=== PATIENT | male | born 2000 | race African-American/Black ===

== ENCOUNTER 2024-12-09 15:06 | Emergency (ER) | payer SELFPAY ==
--- NOTE | ~2024-12-09 | XR_ITS ---
EXAMINATION: XR FINGERS RIGHT HISTORY: trauma COMPARISON: There are no prior studies available for comparison. FINDINGS: Three views of the right index finger are submitted. Osseous mineralization is normal. 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 The remaining portion of the distal phalanx is fractured. There is overlying soft tissue injury. The joint spaces are preserved. No radiopaque foreign body is identified. 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 There is a fracture of the remaining portion of the distal phalanx. Electronically signed by: Rickey Phillips MD 12/09/2024 03:57 PM EDT
[2024-12-09 15:18] VITALS: BP 136/88; PULSE 78; RESP 18; TEMP 37; O2SAT 98; BMI 27.3
--- NOTE | 2024-12-09 15:26 | ED_ITS ---
HPI - General Adult General Chief complaint: Wound/Laceration Stated complaint: Finger lac Time Seen by Provider: 12/09/24 17:34 Source: patient Mode of arrival: ambulatory Limitations: no limitations History of Present Illness ED Provider: Libertad Beverly PA-C HPI narrative: Patient is a 24 year old assigned male at with no reported medical history presenting to the emergency department today with a right index finger injury. Patient states that he thought he was loosening a winch when he was actually tightening it and it snapped off the tip of his right index finger. Patient denies any dizziness, lightheadedness, abdominal pain, nausea, vomiting, fever, chills, blurry vision, double vision, loss of vision, chest pain, difficulty breathing, shortness of breath, back pain, night sweats, pain with urination, increased urinary frequency, increased urinary urgency, blood in his urine or stool, syncope or a near syncopal episode, bowel incontinence, bladder incontinence, or any other complaints at this time. Location: right (index finger) Relieving factors: none Exacerbating factors: none Associated symptoms: denies other symptoms Treatments prior to arrival: none Related Data Previous Rx's ?Medication ?Instructions ?Recorded amoxicillin 875 mg tablet 875 mg PO BID 5 days #10 tabs 12/09/24 Allergies Allergy/AdvReac Type Severity Reaction Status Date / Time No Known Allergies Allergy Verified 12/09/24 15:19 Review of Systems 2 Constitutional: Constitutional: Reports no additional constitutional complaints, Denies chills, Denies fever(s) and Denies night sweats Eyes: Eyes: Reports no additional eye complaints, Denies blurry vision, Denies change in vision, Denies diplopia, Denies eye discharge, Denies loss of vision and Denies eye pain ENT: Denies dizziness Cardiovascular: Cardiovascular: Reports no additional cardiovascular complaints, Denies chest pain, Denies lightheadedness, Denies Loss of Consciousness and Denies dyspnea Respiratory: Respiratory: Reports no additional respiratory complaints and Denies dyspnea Gastrointestinal: Gastrointestinal: Reports no additional gastrointestinal complaints, Denies abdominal pain, Denies melena, Denies hematochezia, Denies change in bowel habits and Denies change in stool character Genitourinary: Genitourinary: Reports no additional male genitourinary complaints, Denies hematuria, Denies oliguria, Denies difficulty urinating, Denies dysuria, Denies urinary frequency, Denies urinary hesitancy, Denies urinary incontinence and Denies urinary urgency Musculoskeletal: Musculoskeletal: Reports no additional musculoskeletal complaints, Denies numbness and Denies tingling Comments: right index finger injury Neurologic: Denies dizziness, Denies loss of vision, Denies numbness and Denies tingling Psychiatric: Psychiatric: Reports no additional psychiatric complaints Endocrine: Endocrine: Reports no additional endocrine complaints Hematologic/Lymphatic: Hematologic/Lymphatic: Reports no additional hematologic/lymphatic complaints Allergic/Immunologic: Allergic/Immunologic: Reports no additional allergic/immunologic complaints [facility] Past Medical History Attestation statement: The following information was validated with the patient. Source: old records reviewed and nursing notes reviewed Social History Social History Smoked in Last 30 Days: No Advance Directives: No Advance Directives Information Provided: No Do you have a plan to hurt others: No Plan Physical Exam ED Vital Signs: Vital Signs - 24 hr 12/09/24 15:18 12/09/24 18:13 Temperature 98.6 F 98.6 F Pulse Rate 78 78 Respiratory Rate 18 18 Blood Pressure 136/88 136/88 Pulse Oximetry 98 98 Oxygen Delivery Method Room Air Room Air BMI result Body Mass Index 27.3 Const General: cooperative, no acute distress, alert and awake Nutritional Appearance: well nourished Orientation/consciousness: patient oriented x3 Limitations: no limitations HENMT Head: Yes normal to inspection and Yes atraumatic Ears: hearing grossly normal bilaterally and external ears normal General nose exam: Normal external nose present, no nasal discharge noted and no epistaxis Face and sinus: Yes normal facial exam, No abrasion and No laceration Mouth: Normal oral and palatal mucosa present, no drooling and no muffled voice Eyes General: appearance normal, both eyes and all related structures Periorbital: periorbital findings normal Eyelids: Yes eyelids normal Conjunctivae: conjunctivae normal Pupils: Equal, round and reactive pupils present EOM: EOMs intact bilaterally Neck Neck: Yes normal visual inspection, Yes full ROM and Yes no lymphadenopathy Chest Chest palpation & inspection: normal inspection of the chest Resp Effort & Inspection: normal respiratory effort and able to speak in complete sentences GI Inspection: Yes normal to inspection Neuro General: patient oriented x3, moves all extremities and CN's II-XI intact bilaterally Cranial nerves: Yes Equal, round and reactive pupils present Cognition (Neuro): normal cognition Extrem Other: Psych Appearance: grossly normal Mental Status: mental status grossly normal Affect: normal affect Attitude: cooperative Thought process: Normal thought process present Thought content: Normal thought content present Insight: Good insight present (Psych) Course Course Course Narrative: RME, this is a rapid medical exam performed by Manjinder Newman please refer to primary provider for complete H&P- 24-year-old male who is right-hand dominant presents for evaluation of an injury to his right index finger. He reports that he got his finger caught in a wench. He has an avulsion injury to the distal finger. He was still bleeding triage, wound was redressed with sterile dressing. Plan for x-ray to evaluate for avulsion injury Procedures Orthopedic Splinting/Casting Injury #1: Side: right Upper Extremity Injury Location: finger (2nd digit) Upper Extremity Immobilizer: finger (other) Medical Decision Making Medical Decision Making MDM Narrative: Patient is a 24 year old assigned male at with no reported medical history presenting to the emergency department today after a right finger partial amputation. Patient's physical exam was as noted. Patient's right hand x-ray showed an amputation of the right index finger at the level of the midshaft of the distal phalanx with a fracture of the remaining portion of the distal phalanx. I spoke to the orthopedic team who recommended closing what can be closed after washing it out, dressing it, giving oral antibiotics, and having him follow up on an outpatient basis with the office. I explained my physical exam findings as well as all test results to the patient. I answered all questions asked by the patient. Patient's finger was thoroughly cleaned and dressed, without incident. Patient's PMS of the right index finger was present prior to and after bandaging. Patient's right index finger was also splinted given the remaining fracture. Patient's PMS was intact prior to and after splint placement. I stressed the importance of the patient taking his medication as directed (either prescribed or as the over the counter packaging recommends). I stressed the importance of the patient following up with his primary care provider and the orthopedic team. I stressed the importance of the patient returning to the emergency department immediately if his symptoms were to worsen or if he were to develop any dizziness, shortness of breath, difficulty breathing, chest pain, blurry vision, loss of vision, nausea, vomiting, abdominal pain, fever, chills, back pain, or any other complaints. Patient verbalized agreement and understanding with this treatment plan and discharge. Patient is up to date on tetanus given his current position. Differential Diagnosis Differential Diagnoses: The differential diagnosis associated with the presentation includes Finger injury Partial amputation Finger fracture Admission/Observation Consideration of admission/observation: Escalation of care including admission/observation considered Patient would have been admitted to the hospital had his work up had any findings where hospital admission was appropriate and his clinical presentation warranted hospital admission. Consult Healthcare Provider Management of the patient was discussed with: Fruit Or Nut Picker (spoke to the orthopedic team as noted in the MDM Rationale protion of this note. ) Independent Interpretation I performed an independent interpretation of an: Plain X-Ray Interpretation: My interpretation is in agreement with the radiologist's impression of this imaging study. L EXAMINATION: XR FINGERS RIGHT HISTORY: trauma COMPARISON: There are no prior studies available for comparison. FINDINGS: Three views of the right index finger are submitted. Osseous mineralization is normal. 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 The remaining portion of the distal phalanx is fractured. There is overlying soft tissue injury. The joint spaces are preserved. No radiopaque foreign body is identified. 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 There is a fracture of the remaining portion of the distal phalanx. Electronically signed by: Rickey Phillips MD 12/09/2024 03:57 PM EDT Dictated By: Rickey Phillips MD Signed By: Electronically signed by Rickey Phillips MD 12/09/24 1557 Radiology Impression Discussion of test interpretation with radiology: I have reviewed the radiologist's reading. Prescription Management I considered prescription management with: Antibiotic (patient prescribed an antibiotic for prophylaxis) Critical Care Time Critical Care Time Critical Care Time: Yes Total Critical Care Time: 34 Attestation: I spent 34 minutes of Critical Care Time with this patient. This does not include time spent on separately reported billable procedures. 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 Do NOT remove your splint / bandage. If you have any change in sensation, movement, or color of your right index or middle fingers - you may loosen the outer bandage. If you find yourself loosening the bandage to the point of seeing the white splint material underneath - STOP and proceed to your closest Emergency Department, immediately. Follow up with your primary care provider and the orthopedic team. Take your antibiotic as prescribed. Return to the emergency department immediately if your symptoms worsen or if you develop any numbness, tingling, dizziness, shortness of breath, difficulty breathing, chest pain, blurry vision, loss of vision, nausea, vomiting, abdominal pain, fever, chills, back pain, or any other complaints. Please see the information below about our Patient Portal. If you are not yet enrolled in the [facility] Patient Portal, you will receive an enrollment email invitation following your visit to any [facility] setting. You may also self-enroll in the Patient Portal by visiting our website: [email or web address] The following information is required to access the Patient Portal: - Your [facility] Medical Record Number - Your personal home email address (must match what is in your electronic medical record, Registration staff can assist with this) - Name - Date of Capabilities of the Patient Portal: - Message some providers - View upcoming appointments - Access your health summary, medical history, and visit history - View current conditions and allergies - View procedure and lab results - View your medications, including guidelines, side effects, and precautions - Complete pre-appointment questionnaires requested by your provider - Ready summary reports of your office visits and procedures To access the Patient Portal Mobile [employer], follow these directions: - Search [employer] in the [employer] Store or [employer] Store - Download the [employer] - Search for [facility] - Enter your login/password Prescriptions: New amoxicillin 875 mg tablet 875 mg PO BID 5 Days Qty: 10 0RF Referrals: [facility] [Provider Group] (Call to follow up with our orthopedic team for amputation revision.) Stand Alone Forms: Work/School Release Interventions: ED Discharge Assessment Last Done: 12/09/24 18:13 Discharge Date/Time: 12/09/24 18:13 Print Language: Argentine
[2024-12-09 18:13] VITALS: BP 136/88; PULSE 78; RESP 18; TEMP 37; O2SAT 98
--- OUTSIDE RECORDS SUMMARY | 2024-12-09 18:48 | XMS_ITS | Continuity of Care Document ---
Author Organization Sathya Pollard [facility] Address [address] [place] [address] Phone Care Team Providers Care Basket Assembler Name Role Phone Thania BILLIE Tasia Unavailable [...] AGE 12-17 OFFICE/OUTPATIENT VISIT, EST DEVELOPMENTAL TEST, IWNTERS PREV VISIT, EST, AGE 12-17 OFFICE/OUTPATIENT VISIT, [...] Copied on Encounter OFFICE/OUTPA TIENT VISIT, EST [facility], [address] [facility] [facility] [address], [place], [id number], [place] tel:[phone] [facility] stomach pain (chief complaint) Rib pain 3 Schierberl Tasia. [address] [place], [place], [id number], [place]. tel:[phone] [facility], [address] [place] [address] ng [address], [place], [id number], [place] tel:[phone] [facility] No Information 1 Alejandro Ha. [address] [place], [place], [id number]. tel:[phone] PREV VISIT, EST, AGE 18-39 [facility], [address] [facility] [facility] [address], [place], [place], [id number], [place] tel:[phone] [facility] APE. (chief complaint) Encounter for general adult medical examination without abnormal findingsBody mass index [BMI] pediatric, 85th percentile to less than 95th percentile for age 1 Sarah Osorio. [address] [place], [place], [id number], [place]. tel:[phone] [facility], [address] [place] [address] ng [address], [place], [place], [id number], [place] tel:[phone] [facility] Patient left without being seen 1 Sarah Osorio. [address] [place], [place], [id number], [place]. tel:[phone] [facility], [address] [place] [address] [address], [place], [id number], [place] tel:[phone] [facility] No Information Cesar-0 0 Viki Lara. [address] [place], [place], [id number]. tel:[phone] [facility], [address], [place], [place], [id number], [place] tel:[phone] [facility] Dermatitis, unspecified Cesar-0 0 [facility]. . Consulting Provider: Carmen Bella, [address] [place], [address]. tel:[phone] PREV VISIT, EST, AGE 18-39 [facility], [address] [place] [address] 2,[address], [place], [place], [id number], [place] tel:[phone] [facility] Well child (chief complaint) Eczema, unspecified typeEncntr for general adult medical exam w/o abnormal findings 9 Sarah Osorio. [address] [place], [place], [id number], [place]. tel:[phone] OFFICE/OUTPA TIENT VISIT, EST [facility], [address], [place], [place], [id number], [place] tel:[phone] [facility] nail problem (chief complaint) Ingrown toenail of right foot with infection 9 Yvonne Antonio. [address] [place] [address], [id number]. tel:[phone] [facility], [address], [place], [place], [id number], [place] tel:[phone] [facility] ingrown toenail (chief complaint) Patient left without being seen 9 Yvonne Alvarez. [address] [place], [place], [id number]. tel:[phone] OFFICE/OUTPA TIENT VISIT, EST [facility], [address], [id number], [place] tel:[phone] [facility] R great toenail ingrown (chief complaint) eczema flare (chief complaint) Ingrown toenail of right foot with infectionEcze ma, unspecified type 9 Viki Lara. [address] [place] [address], [id number]. tel:[phone] OFFICE/OUTPA TIENT VISIT, EST [facility], [address] [facility] [address], [place], [place], [id number], [place] tel:[phone] [facility] rash. (chief complaint) Eczema, unspecified type 9 Rosaline Welsh. [address] [place] [address], [id number], [place]. tel:[phone] PREV VISIT, EST, AGE 12-17 [facility], [address], [place], [place], [id number], [place] tel:[phone] [facility] Well Child (chief complaint) Encntr for routine child health exam w/o abnormal findings 8 No Information PREV VISIT, EST, AGE 12-17 [facility], [address] [facility] [address], [place], [place], [id number], [place] tel:[phone] [facility] Well Child (chief complaint) Encounter for routine child health examination with abnormal findingsEczem a, unspecified type 6 No Information OFFICE/OUTPA TIENT VISIT, EST [facility], [address] [facility] [address], [place], [place], [id number], [place] tel:[phone] [facility] Skin sx (chief complaint) Eczema, unspecified type 6 No Information PREV VISIT, EST, AGE 12-17 [facility], [address] [facility] [address], [place], [place], [id number], [place] tel:[phone] [facility] Well child (chief complaint) Eczema (chief complaint) Encounter for routine child health examination with abnormal findingsEczem a, unspecified eczema 5 No Information OFFICE/OUTPA TIENT VISIT, EST [facility], [address] [facility],[address], [place], [place], [id number], [place] tel:[phone] [facility] fall on l. knee,seen in ER (chief complaint) Contusion of left knee 5 No Information PREV VISIT, EST, AGE 12-17 [facility], [address] [facility] [address], [place], [place], [id number], [place] tel:[phone] [facility] Well Child (chief complaint) ROUTIN CHILD HEALTH EXAM 4 No Information OFFICE/OUTPA TIENT VISIT, EST [facility], [address] [facility] [address] [facility] [address], [place], [place], [id number], [place] tel:[phone] [facility] eczema (chief complaint) Contact dermatitis and other eczema, unspecified causeOnychomy cosis - 4 No Information OFFICE/OUTPA TIENT VISIT, EST [facility], [address] [facility],[address], [place], [place], [id number], [place] tel:[phone] [facility] fever (chief complaint) diarrhea (chief complaint) Abdominal pain 3 No Information PREV VISIT, EST, AGE 5-11 [facility], [address] [facility] [address], [place], [place], [id number], [place] tel:[phone] [facility] Well child - 11 Years (chief complaint) Routine infant or child health checkContact dermatitis and other eczema, unspecified causeRoutine infant or child health check 3 No Information OFFICE/OUTPA TIENT VISIT, EST [facility], [address] [facility],[address], [place], [place], [id number], [place] tel:[phone] [facility] skin itching (chief complaint) EczemaNeed for prophylactic vaccination and inoculation against other specified single bacterial diseaseNEED FOR PROPHYLACTIC VACCINATION WITH COMBINED DIPHTHERIA-TE TANUS-PERTUSS IS (DTP) (DTAP) VACCINE - 3 No Information FAMILY PSYTX W/PATIENT [facility], [address], [place], [place], [id number], [place] tel:[phone] [facility] Persistent adjustment disorder 2 No Information PREV VISIT, EST, AGE 5-11 [facility], [address], [place], [place], [id number], [place] tel:[phone] [facility] Well child - 10 Years (chief complaint) Routine or child health checkRoutine infant or child health check 0- 2 No Information OFFICE/OUTPA TIENT VISIT, EST [facility], [address], [place], [place], [id number], [place] tel:[phone] [facility] neck pain (chief complaint) Cervicalgia 2 No Information [facility], [address], [place], [place], [id number], [place] tel:[phone] [facility] No Information 1 No Information [facility], [address], [place], [place], [id number], [place] tel:[phone] [facility] No Information 0 No Information [facility], [address], [place], [place], [id number], [place] tel:[phone] [facility] No Information 9 Viki Lara. [address] [place] [address], [id number]. tel:[phone] [facility], [address], [place], [place], [id number], tel:[phone] [facility] No Information Dec- No Information Family History Family Member Type [...] R egistry Hepatitis B (a) CHILD administered Sourc e: New Immunization Record Flu (split) (3 yrs or older) cancelled Source: New Immunization Record Payers Payer name Insurance type Covered constitution party ID Authoriza tion(s) [address] [id number] [address] [id number] [facility] [id number] [facility] [id number] Social History Type Description Quantity Date Captured [...] back which helped a lot. Works at [employer], does a lot of heavy lifting. No recent gym/strenous exercise.ROS neg for CP, reflux, cough, fevers, recent URI, n/vnonsmokerneg fhx sudden cardiac or stomach dz Reason For Referral Reason For Referral No Information Plan Of Treatment Date Type Action Status Goal HPV (1st) due Goal Td vaccine. Due on due Goal APE. Due [...] Information. D ue on due Goal HPV (1st) due Goal Pneumococcal vaccine due Goal APE. Due on due Goal Influenza vaccine. Due on due Goal HPV (2nd) due Goal Document SOGI Information. D ue on due Goal Diabetes Screening. Due on due Goal Fluoride varnish application . Due on due Goal HPV (3rd). Due on 8 due Goal Fluoride varnish application . Due [...] due Goal HPV (1st) due Goal HPV (2nd). Due on 8 due Goal HPV (3rd). Due on 8 due Goal Pneumococcal vaccine due Goal HPV (3rd). Due on due Goal Pneumococcal vaccine due Goal HPV (2nd). Due on due Goal Influenza vaccine. Due on due Goal HPV (1st) due Goal Tdap. Due on due Goal HPV (3rd). Due on 8 due Goal Influenza vaccine. Due on due Goal Pneumococcal vaccine due Goal HPV (2nd). Due on due Goal Tdap. Due on due Goal HPV (1st) due Goal HPV (1st) due Goal Influenza vaccine. Due on due Goal HPV (3rd). Due on due Goal Tdap. Due on [...] Present Illness Encounter Date Complaint History Of [facility] Ill[facility] stomach pain CC: stomach pain Lang: [...] back which helped a lot. Works at [employer], does a lot of heavy lifting. No recent gym/strenous exercise.ROS neg for CP, reflux, cough, fevers, recent URI, n/vnonsmokerneg fhx sudden cardiac or stomach dz APE. 19yo M here for [place]ISSY w/mom and brotherLast visit w/me in [id number]) Eczema.Was recently referred to derm but no-showed appt on `06/30/19PSH: noneAllergies: NKDA/NKFAMeds: steroid creamSH: lives w/mom, dad, and brother. no smokers, no petsSchool - [employer] for general studies - was thinking about zoology but unsure. work - [employer] - online shopping, 30hrs/wk; not currently exercising [...] referred to derm but no-showed appt on `06/30/19Has been hospitalized for this beforeDaily care: regular and liberal use of emollients on a daily basis and other xerosis-reducing behaviors (e.g., taking low-heat showers, using emollient washes-Cetaphil, and moisturizers low in water-Cetaphil, Aquaphor)d/t severity of disease, could benefit from maintenance steroid dosePSH: noneAllergies: NKDA/NKFAMeds: steroid creamSH: lives w/mom, dad, and brother. no smokers, no petsschool - [employer], senior. work - [employer] exercises - 45 minutes every day. is planning on doing basketball and baseballPlans to go to [facility] - zoologistDiet: no vegetables or fruits. eats [...] counseling Age appropriate anti cipatory guidance discussed (-22 years) Related to Encntr for routine child health exam w/o abnormal findings Age appropriate diet discussed (- years) Related to Encntr for routine child health exam w/o abnormal findings Oral Health Discussed ( yea rs) Related to Encntr for routine child health exam w/o abnormal findings Age appropriate anti cipatory guidance discussed (- years) Related to Encntr for routine child health exam w/o abnormal findings Age appropriate diet discussed (- years) Related to Encntr for routine child health exam w/o abnormal findings Oral Health Discussed ( yea rs) Related to Encntr for routine child health exam w/o abnormal findings Age appropriate anti cipatory guidance discussed (11-14 years) Related to Encntr for routine child health exam w/o abnormal findings Age appropriate diet discussed (- years) Related to Encntr for routine child health exam w/o abnormal findings Oral Health Discussed (- yea rs) Related to Encntr for routine child health exam w/o abnormal findings no gym x 3 more wks, rtc if no better or worse by then Related to Contusion of left knee Age appropriate anti cipatory guidance discussed Related to routine infant/child health checkup Age approriate antic ipatory guidance discussed Related to routine /child health checkup Assessments Type Assessment Date assessment Rib pain Patient Care Teams Name Effective Dates (start - stop) Status Members No Information
--- OUTSIDE RECORDS SUMMARY | 2024-12-09 18:48 | XMS_ITS | Continuity of Care Document ---
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 Medication Details Route Status Patient Instructions Prescription Expires Prescription Number Last Dispense Date Ordering Provider Order Date Order Qty Source benzoyl peroxide 5% topical gel 1 appl(s), Topical, Daily, # 42.5 g, 0 total refill(s ), Arley khan, Pharmacy : [facility] Topica l (on the skin) Ordered 2 2021 42.5 [id number] melvin Junior [facility] ibuprofen 800 mg oral tablet ibuprofe n 800 mg oral tablet Start Date: 08/18/21 Stop Date: 12/15/21 Status: Disconti nutosin Repeat number: 1 Discont inued 12/15/20212021 No Facilit y Access ibuprofen 800 mg oral tablet TAKE 1 TABLET BY MOUTH THREE TIMES A DAY NEEDED PAIN, # 20 EA, 1 total refill(s ), Acute Complet ed 08/17/2022 1 2021 20.0 Ambulat ory Pharmac y Immunizations Combined list of available immunizations from the Department of Defense and Veterans Affairs facilities. 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 [employer] Status Comments Source hepatitis B adult vaccine 2020 zzPankaj ht Arm [id number] GlaxoSmithKli ne complet ed hepatitis B adult vaccine 09/05/21 Given Ambulat ory Pharmac y varicella virus vaccine 2020 zzRig ht Arm [id number] Merck & Company Inc complet ed varicella virus vaccine 09/05/21 Given Ambulat ory Pharmac y measles/mumps /rubella virus vaccine 2020 zzLef t Arm [id number] Merck & Company Inc complet ed measles/m umps/rube lla virus vaccine 09/05/21 Given Ambulat ory Pharmac y COVID Vaccine Pfizer 2020 zzLef t Arm [id number] PFIZER complet ed COVID Vaccine Pfizer 09/05/21 Given Ambulat ory Pharmac y measles, mumps and rubella virus vaccine 2 2020 PHAM, ALESI A [id number] Merck (MSD) complet ed measles, mumps and rubella virus vaccine DoD varicella virus vaccine 2 2020 PHAM, ALESI A [id number] 21 Merck (MSD) complet ed varicella virus vaccine DoD Hepatitis B vaccine (recombinant) , CpG adjuvanted 2 2020 PHAM ALESI A [id number] [facility] VU [employer] (SKB) complet ed Hepatitis B vaccine (recombin ant), CpG adjuvante d DoD SARS-COV-2 (COVID-19) vaccine, mRNA, spike protein, LNP, preservative free, 30 mcg/0.3mL dose 2 2020 ANKIT ALESI A [id number] Pfizer, Inc (PFR) complet ed SARS-COV- 2 (COVID-19 ) vaccine, mRNA, spike protein, LNP, preservat benson free, 30 mcg/0.3mL dose DoD meningococcal A,C,Y,W-135 (MCV4P) 2020 Tu Arm [id number] sanofi pasteur complet ed meningoco ccal A,C,Y,W-1 35 (MCV4P) 08/07/21 Given Ambulat ory Pharmac y tetanus, diphtheria, acellular pertu is 2020 zzLef t Arm [id number] 115 FlixlabKli ne complet ed tetanus, diphtheri a, acellular pertussis 08/07/21 Given Ambulat ory Pharmac y adenovirus vaccine, live 2020 [id number] 143 Unknown complet ed adenoviru s vaccine, live 08/07/21 Given Ambulat ory Pharmac y tuberculin purified protein derivative 2020 zzLef t Arm [id number] sanofi pasteur complet ed tuberculi n purified protein derivativ e 08/07/21 Given Ambulat ory Pharmac y influenza, injectable, quadrivalent- p[facility] [id number] 150 Seqirus complet ed influenza , injectabl e, quadrival ent-pf 08/07/21 Given Ambulat ory Pharmac y COVID Vaccine Pfizer 2020 zzLef t Arm [id number] PFIZER complet ed COVID Vaccine Pfizer 08/07/21 Given Ambulat ory Pharmac y hepatitis B adult vaccine 2020 zzRig ht Arm [id number] 43 GlaxoSmithKli ne complet ed hepatitis B adult vaccine 08/07/21 Given Ambulat ory Pharmac y varicella virus vaccine 2020 zzRig ht Arm [id number] 21 Merck & Company Inc complet ed varicella virus vaccine 08/07/21 Given Ambulat ory Pharmac y measles/mumps /rubella virus vaccine 2020 zzLef t Arm [id number] Merck & Company Inc complet ed measles/m umps/rube lla virus vaccine 08/07/21 Given Ambulat ory Pharmac y [facility], [id number] complet ed polioviru s vaccine, inactivat ed 08/07/21 Given Ambulat ory Pharmac y measles, mumps and rubella virus vaccine 1 2020 HUEY HARRISON [id number] Merck (MSD) complet ed measles, mumps and rubella virus vaccine DoD poliovirus vaccine, inactivated 1 2020 HUEY HARRISON [id number] Moderna [employer] (MOD) complet ed polioviru s vaccine, inactivat ed DoD varicella virus vaccine 1 2020 HUEY HARRISON [id number] 21 Merck (MSD) complet ed varicella virus vaccine DoD tuberculin skin test; purified protein derivative solution, intradermal 1 2020 HUEY HARRISON [id number] 96 Sanofi Pasteur (PMC) complet ed tuberculi n skin test; purified protein derivativ e solution, intraderm al DoD meningococcal polysaccharid e (groups A, C, Y and W-135) diphtheria toxoid conjugate vaccine (MCV4P) 1 2020 HUEY HARRISON [id number] Sanofi Pasteur (PMC) complet ed meningoco ccal polysacch aride (groups A, C, Y and W-135) diphtheri a toxoid conjugate vaccine (MCV4P) DoD tetanus toxoid, reduced diphtheria toxoid, and acellular pertu is vaccine, adsorbed 1 2020 HUEY HARRISON [id number] [facility] (SK) complet ed tetanus toxoid, reduced diphtheri a toxoid, and acellular pertussis vaccine, adsorbed DoD Adenovirus, type 4 and type 7, live, oral 1 2020 HUEY HARRISON [id number] 143 Unknown (UNK) complet ed Adenoviru s, type 4 and type 7, live, oral [facility] Influenza, injectable, quadrivalent, preservative free 1 2020 HUEY HARRISON [id number] 150 Seqirus (SEQ) complet ed Influenza , injectabl e, quadrival ent, preservat benson free [facility] Hepatitis B vaccine (recombinant) , CpG adjuvanted 1 2020 HUEY HARRISON [id number] [facility] (BIANCA) complet ed Hepatitis B vaccine (recombin ant), CpG adjuvante d [facility] SARS-COV-2 (COVID-19) vaccine, mRNA, spike protein, LNP, preservative free, 30 mcg/0.3mL dose 1 2020 HUEY HARRISON [id number] Pfizer, Inc (PFR) complet ed SARS-COV- 2 (COVID-19 ) vaccine, mRNA, spike protein, LNP, preservat benson free, 30 mcg/0.3mL dose [facility] Vital Signs Combined list of inpatient and outpatient Vital Signs from Department of Defense and Veterans Affairs, ranging from 12 months to all on record, depending upon the facility. Vital Sign Value Date Comments Source BP Site Left arm [facility] Temperature Temporal Artery 36.5 Marily 01/30/2022 13:15[facility] Systolic Blood Pressure 126 mm[Hg] 01/31/20 22 13:[facility] Diastolic Blood Pressure 75 mm[Hg] 022 13:15[facility] Peripheral Pulse Rate 98 bpm 01/30/2022 13:15[facility] Blood Pressure Manual Automatic 01/30/2022 13:15[facility] Mean Arterial Pressure, Calc 92 mm[Hg] 01/30/2022 [facility] Respiratory Rate 14 br/min 01/30/2022 13:[facility] Peripheral Pulse Rate 74 bpm 12/15/2021 15:01[facility] Systolic Blood Pressure 109 mm[Hg] 12/16/19 22 15:01[facility] Diastolic Blood Pressure 54 mm[Hg] 022 15:01[facility] Respiratory Rate 16 br/min 12/15/2021 15:01[facility] Mean Arterial Pressure, Calc 72 mm[Hg] 12/15/2021 15:01:[address] [place] [address] Temperature Temporal Artery 36.5 Marily 12/15/2021 15:01[facility] Blood Pressure Manual Automatic 12/15/2021 15:01:[address] [place] [address] Encounters Combined list of: 1) Encounters from Department of Veterans Affairs facilities going backup to the last 18 months, not all VA inpatient encounters are included; 2) Encounters from the Department of Defense facilities going backup to 280 months. Location Location Details Encounter Type Encounter Number Reason For Visit Attending Provider ADM Date DC Date Status Disposition Source [facility] OUTPAT[facility] [id number] DON DONISophia 08/03 Released w/o Limitations [facility] Fitz avina[facility] miranda([facility]) OUTPATIENT [id number] KHLOE ANAYA 08/07 Released w/o Limitations [facility] Fitz avina([facility] D Optomet [facility]) [facility] OUTPATIENT [id number] FIRST VISIT FOR IMMUNIZ ATISIAH WEST 08/07 Released w/o Limitations [facility] Fitz avina([facility] ) [facility]) OUTPATIENT [id number] SECOND VISIT FOR IMMUNIZ MIGUELINA SORIANO 09/05 Released w/o Limitations [facility] Fitz avina([facility] [employer] [facility] ) Procedures Combined list of: 1) Procedures from Department of [facility] Affairs facilities going back up to thelast 18 months, not all VA non-surgical procedures are included; 2) All procedures from the Department of Defense facilities. Procedure Procedure Type Code Date Perfomer Comments Sourc e No data available for this section Ambulato ry Pharmacy IMMUNIZATION ADM,INTRAMUSCULAR INJ,SEVERE AC RESPIRATORY SYNDROME CORONAVIR 2 (SARSCOV-2) (CORONAVIR DIS [COVID-19]) VACC,MRNALNP,SPIKE PROT,PRESRV FREE,30 MCG/0.3ML DOS,DILUENT RECONSTITUT;2ND DOSE 2020 [facility] COLLECTION OF VENOUS BLOOD BY VENIPUNCTURE 2020 [facility] OPHTHALMOLOGICAL SERVICES: MEDICAL EXAMINATION AND EVALUATION WITH INITIATION OF DIAGNOSTIC AND TREATMENT PROGRAM; INTERMEDIATE, NEW PATIENT 2020 [facility] PURE TONE AUDIOMETRY (THRESHOLD), AUTOMATED; AIR ONLY 2020 [facility] Patient education, not otherwise cla ified, non-physician provider, group, per se ion DIONNE OCHOA Threshold Audiogram (Pure Tone) Automated Threshold Audiogram (Pure Tone) Automated 0208T DIONNE OCHOA [facility] Spectacles Services Fitting Monofocal Except For Aphakia Spectacles Services Fitting Monofocal Except For Aphakia [id number] BETSY RAGSDALE [facility] Ophthalmological New Patient Start Intermediate Level Care Ophthalmological New Patient Start Intermediate Level Care [id number] BETSY RAGSDALE [facility] Vaccines Viral Measles, Mumps and Rubella, Live Vaccines Viral Measles, Mumps and Rubella, Live 85462 HUEY HARRISON MMR; Series #: 1; 0.5 mL; SC; Left Arm; Mfg: Merck; Lot: [id number]; VIS given (Artem: 05/05/2021). [facility] Vaccines Viral Polio, Inactivated Vaccines Viral Polio, Inactivated 46299 HUEY HARRISON IPV; Series #: 1; 0.5 mL; IM; Right Arm; Mfg: Tetherball.; Lot: [id number]; VIS given (Artem: 05/05/21; 12/30/19 - Multiple). [facility] Vaccines Viral Varicella (Active) Vaccines Viral Varicella (Active) 96572 HUEY HARRISON Varicella; Series #: 1; 0.5 mL; SC; Right Arm; Mfg: Merck; Lot: [id number]; VIS given (Artem: 05/05/2021). [facility] Skin Test Anergy Tuberculin Intradermal Skin Test Anergy Tuberculin Intradermal 12012 HUEY HARRISON IPPD; Series #: 1; 0.1 mL; ID; Left Arm; Mfg: Sanofi Pasteur; Lot: [id number]; VIS given. [facility] Meningococcal Polysaccharide Diphtheria Toxoid Conjugate Vaccine Meningococcal Polysaccharide Diphtheria Toxoid Conjugate Vaccine 19387 HUEY HARRISON Meningococcal MCV4P (Menactra); Series #: 1; 0.5 mL; IM; Right Arm; Mfg: Sanofi Pasteur; Lot: [id number]; VIS given (Artem: 05/05/2021). [facility] Tdap Vaccine Tdap Vaccine 33833 HUEY HARRISON Tdap; Series #: 1; 0.5 mL; IM; Left Arm; Mfg: EximSoft-Trianz; Lot: [id number]; VIS given (Artem: 05/05/2021). [facility] Vaccines Vaccines 06558 HUEY HARRISON Adenovirus Type 4 and 7; Series #: 1; 2 tablets; PO; Oral; Mfg: Unknown; Lot: [id number]; VIS given (Ratem: 10/07/2019). [facility] Influenza Split Virus Vaccine IM Preserv Free 0.5mL Dosage Quadrivalent Influenza Split Virus Vaccine IM Preserv Free 0.5mL Dosage Quadrivalent 76198 HUEY HARRISON Influenza, Inj., quad., preservative free; Series #: 1; 0.5 mL; IM; Left Arm; Mfg: Seqirus; Lot: [id number]; VIS given (Artem: 05/05/2021). [facility] Hepatitis B Vaccine (Active) Adult Dosage 2 Dose Schedule HUEY HARRISON Hep B- CpG (Heplisav-B); Series #: 1; 0.5 mL; IM; Right Arm; Mfg: EximSoft-Trianz; Lot: [id number]; VIS given (Artem: 05/14/2019). [facility] Vaccine SARS-CoV-2 mRNA-LNP Hugo Protein Preservative Free 30mcg/0.3mL Diluent Reconstituted IM Vaccine SARS-CoV-2 mRNA-LNP Hugo Protein Preservative Free 30mcg/0.3mL [place] [address] HUEY HARRISON COVID-19, 30 mcg/0.3 mL dose (Pfizer 12+ years); Series #: 1; 0.3 mL; IM; Left Arm; [facility]: ColorPlaza; Lot: [id number]; VIS given (Artem: 05/22/2021). [facility] Immunization Administration By Injection, One Vaccine Immunization Administration By Injection, One Vaccine 45522 HUEY HARRISON Immunization Administration By Injection, Each Additional Vaccine Immunization Administration By Injection, Each Additional Vaccine 25793 HUEY HARRISON Immunization Admin By Intranasal / Oral Route One Vaccine Immunization Admin By Intranasal / Oral Route One Vaccine 92311 HUEY HARRISON Vacc SARS-CoV-2 mRNA-LNP Hugo Protein Preservative Free 30mcg/0.3mL Diluent Reconstituted IM First Dose Vacc SARS-CoV-2 mRNA-LNP Hugo Protein Preservative Free 30mcg/0.3mL Diluent Reconstituted IM First Dose 0001A HUEY HARRISON Physician Supervised Injection Intramuscular Physician Supervised Injection Intramuscular 62667 HUEY HARRISON Venipuncture Venipuncture 83495 HUEY HARRISON [facility] Vaccines Viral Measles, Mumps and Rubella, Live Vaccines Viral Measles, Mumps and Rubella, Live 39761 PHAM, ALESI A MMR; Series #: 2; 0.5 mL; SC; Left Arm; [facility]: Cubiez; Lot: [id number]; VIS given (Artem: 05/05/2021). [facility] Vaccines Viral Varicella (Active) Vaccines Viral Varicella (Active) 79382 PHAM, ALESI A Varicella; Series #: 2; 0.5 mL; SC; Right Arm; [facility]: Cubiez; Lot: [id number]; VIS given (Artem: 05/05/2021). [facility] Hepatitis B Vaccine (Active) Adult Dosage 2 Dose Schedule PHAM, ALESI A Hep B- CpG (Heplisav-B); Series #: 2; 0.5 mL; IM; Right Arm; [facility]: EximSoft-Trianz; Lot: [id number]; VIS given (Artem: 05/14/2019). [facility] Vaccine SARS-CoV-2 mRNA-LNP Hugo Protein Preservative Free 30mcg/0.3mL Diluent Reconstituted IM Vaccine SARS-CoV-2 mRNA-LNP Hugo Protein Preservative Free 30mcg/0.3mL [place] [address] CATHY PHAM COVID-19, 30 mcg/0.3 mL dose (Pfizer 12+ years); Series #: 2; 0.3 mL; IM; Left Arm; Mfg: CloudSwitch Inc; Lot: [id number]; VIS given (Artem: 05/22/2021). [facility] Vacc SARS-CoV-2 mRNA-LNP Hugo Protein Preservative Free 30mcg/0.3mL Diluent Reconstituted IM Second Dose Vacc SARS-CoV-2 mRNA-LNP Hugo Protein Preservative Free 30mcg/0.3mL Diluent Reconstituted IM Second Dose 0002A CATHY PHAM A [facility] Social History Combined list of available smoking, tobacco, and other social history from Department of Defense and Veterans Affairs facilities. Social History Type Response Date Comment [facility] e Sex Representation Male 12/07/2021 Unknow n Organization Tobacco Never-cigarette user Cigarette use:. Never-other tobacco user (not cigarettes) Other Tobacco use:. Ambulatory Pharmacy Sexual Orientation Ambula tory Pharmacy Gender identity Ambulator y Pharmacy This section is an empty social history section. [facility] Assessment and Plan Combined list of future care activities from Department of Defense and Veterans Affairs facilities (e.g., assessment and plan notes, appointments, orders, and referrals). Additional future care activities may be listed in the Plan of Care section. 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 Cleared to separate.? ? ? Recent labs reviewed with patient. Abnormal findings and recommendations reviewed. ? Follow up with PCM as needed. ? Service specific forms completed as appropriate.? ? COUNSELING: The patient was counseled regarding the benefits of age appropriate screening exams and immunizations. They were also counseled on the importance of a healthy lifestyle including healthy diet, adequate exercise and adequate sleep.? 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 ?Use electric clippers (Not electric razor). Must be uniform and neatly trimmed to a length of 1/8 (NTE???inch total length of curled hair.) ?Frequently- daily. ?No styling is permitted. If there is actual danger of exposure to a toxic environment, SM can be required to clean- shave the bradshaw (see 9.b (2), C ?(2)). Re-eval NLT every 5 years. ? SM counseled in use of skin cleanser as it relates to decreasing skin inflammation from buildup of naturally occurring oils. ?SM advised profile is temporary and will need to be renewed in 3 months. ? Ordered: benzoyl peroxide topical, 1 appl(s), Topical, Daily, # 42.5 g, 0 total refill(s), Maintenance, 1 appl(s) Topical Daily, Pharmacy: [facility] [Not filled] ? 12/09/2024 [facility] Functional Status Combined list of recent functional and cognitive assessments recorded at Department of Defense and Veterans Affairs (VA).VA Functional [place] Measurement (FIM) Scale: 1 = Total Assistance (Subject = 0% +), 2 = Maximal Assistance (Subject = 25% +), 3 = Moderate Assistance (Subject = 50% +), 4 = Minimal Assistance (Subject = 75% +), 5 = Supervision, 6 = Modified [place] (Device), 7 = Complete [place] (Timely, Safely). Assessment Date/Time Source Assessment Type Assessment Skill Assessment Score Assessment Details No data available for this section
== END 2024-12-09 18:13 | disposition home or self-care (01) ==
PROVIDERS: Emergency Provider Emergency Medicine Emergency Medical Services
DX: S68.120A Partial traumatic metacarpophalangeal amputation of right index finger, initial encounter (principal); M79.644 Pain in right finger(s); Y28.9XXA Contact with unspecified sharp object, undetermined intent, initial encounter; Y93.89 Activity, other specified; Y92.89 Other specified places as the place of occurrence of the external cause; Y99.8 Other external cause status
CPT/HCPCS: 29130; 73140; 99284

== ENCOUNTER → 2024-12-09 15:26 | Outpatient (BNV) | payer SELFPAY | PROVIDERS: Visit Provider Radiology Diagnostic Radiology | DX: S62.630A Displaced fracture of distal phalanx of right index finger, initial encounter for closed fracture (principal) | CPT/HCPCS: 73140 ==

== ENCOUNTER 2024-12-11 08:24 | Outpatient (REF) | payer SELFPAY ==
--- NOTE | ~2024-12-11 | XR_ITS ---
EXAMINATION: XR HAND 3 OR MORE VIEWS RIGHT HISTORY: M79.641 - Pain in right hand COMPARISON: Comparison is made with the prior examination dated 12/09/2024. FINDINGS: Three views of the right hand are submitted. Osseous mineralization is normal. Again seen is amputation of the distal portion of the distal phalanx of the index finger. A small osseous fragment is seen in the volar soft tissues. The joint spaces are preserved. The soft tissues are unremarkable. XR/XR hand RT min 3V IMPRESSION: Amputation of the distal portion of the distal phalanx of the index finger. Small osseous fragment in the volar soft tissues. Electronically signed by: Rickey Phillips MD 12/11/2024 01:00 PM EDT
--- OUTSIDE RECORDS SUMMARY | 2024-12-11 08:37 | XMS_ITS | Continuity of Care Document ---
Author Name [facility] Organization [facility] Care Team Providers Care Zoning Administrator Name Role Phone [facility] Unavailable Unavailable Medications Combined list of outpatient [...] total refill(s ), Arley khan, Pharmacy : [facility] Topica l (on the skin) Ordered 2 2021 42.5 1511C-R melvin [facility] ibuprofen 800 mg oral tablet ibuprofe n [...] Site Reaction Lot Number CVX Code Drug Brand Manager Status Comments Source hepatitis B adult vaccine 2020 zzPankaj ht Arm [id number] GlaxoSmithKli ne complet ed hepatitis B adult vaccine 09/05/21 Given Ambulat ory Pharmac y varicella virus vaccine 2020 zzRig ht Arm [id number] Merck & Company Inc complet ed varicella virus vaccine 09/05/21 Given Ambulat ory Pharmac y measles/mumps /rubella virus vaccine 2020 zzLef t Arm [id number] 03 Merck & Company Inc complet ed measles/m umps/rube lla virus vaccine 09/05/21 Given Ambulat ory Pharmac y COVID Vaccine Pfizer 2020 zzLef t Arm [id number] PFIZER complet ed COVID Vaccine Pfizer 09/05/21 Given Ambulat ory Pharmac y meningococcal A,C,Y,W-135 (MCV4P) 2020 zzRig ht Arm [id number] sanofi pasteur complet ed meningoco ccal A,C,Y,W-1 35 (MCV4P) 08/07/21 Given Ambulat ory Pharmac y tetanus, diphtheria, acellular pertu is 2020 zzLef t Arm [id number] GlaxoSmithKli ne complet ed tetanus, diphtheri a, acellular pertussis 08/07/21 Given Ambulat ory Pharmac y adenovirus vaccine, live 2020 [id number] Unknown complet ed adenoviru s vaccine, live 08/07/21 Given Ambulat ory Pharmac y tuberculin purified protein derivative 2020 zzLef t Arm [id number] 96 sanofi pasteur complet ed tuberculi n purified protein derivativ e 08/07/21 Given Ambulat ory Pharmac y influenza, injectable, quadrivalent- pf 2020 zzLef t Arm [id number] 150 Seqirus complet ed influenza , injectabl e, quadrival ent-pf 08/07/21 Given Ambulat ory Pharmac y COVID Vaccine Pfizer 2020 zzLef t Arm [id number] PFIZER complet ed COVID Vaccine Pfizer 08/07/21 Given Ambulat ory Pharmac y hepatitis B adult vaccine 2020 zzRig ht Arm [id number] 43 GlaxoSmithKli ne complet ed hepatitis B adult vaccine 08/07/21 Given Ambulat ory Pharmac y varicella virus vaccine 2020 zzRig ht Arm [id number] 21 Merck & Company Inc complet ed varicella virus vaccine 08/07/21 Given Ambulat ory Pharmac y measles/mumps /rubella virus vaccine 2020 zzLef t Arm [id number] Merck & Company Inc complet ed measles/m umps/rube lla virus vaccine 08/07/21 Given Ambulat ory Pharmac y poliovirus vaccine, inactivated 2020 zzRig ht Arm [id number] complet ed polioviru s vaccine, inactivat ed 08/07/21 Given Ambulat ory Pharmac y Vital Signs Combined list of inpatient and outpatient Vital Signs from Department of Defense and Veterans Affairs, ranging from 12 months to all on record, depending upon the facility. Vital Sign Value Date Comments Source BP Site Left arm 01/30/2022 13:15:[address] [place] [address] Temperature Temporal Artery 36.5 Marily 01/30/2022 13:15:[address] [place] [address] Systolic Blood Pressure 126 mm[Hg] 01/31/20 13:15:[address] [place] [address] Diastolic Blood Pressure 75 mm[Hg] 022 13:15:[address] [place] [address] Peripheral Pulse Rate 98 bpm 01/30/2022 13:15:[address] [place] [address] Blood Pressure Manual Automatic 01/30/2022 13:15:[address] [place] [address] Mean Arterial Pressure, Calc 92 mm[Hg] 01/30/2022 13:15:[address] [place] [address] Respiratory Rate 14 br/min 01/30/2022 13:15:[address] [place] [address] Peripheral Pulse Rate 74 bpm 12/15/2021 15:01:[address] [place] [address] Systolic Blood Pressure 109 mm[Hg] 12/16/19 22 15:01:[address] [place] [address] Diastolic Blood Pressure 54 mm[Hg] 022 15:01:[address] [place] [address] Respiratory Rate 16 br/min 12/15/2021 15:01:[address] [place] [address] Mean Arterial Pressure, Calc 72 mm[Hg] 12/15/2021 15:01:[address] [place] [address] Temperature Temporal Artery 36.5 Marily 12/15/2021 15:01:[address] [place] [address] Blood Pressure Manual Automatic 12/15/2021 15:01:[address] [place] [address] [facility] Procedures Combined list of: 1) Procedures from Department of Veterans Affairs facilities going back up to thelast 18 months, not all VA non-surgical procedures are included; 2) All procedures from the Department of Defense facilities. Procedure Procedure Type Code Date Perfomer Comments Yang paiz No data available for this section Ambulatory P harmacy Social History Combined list of available smoking, tobacco, and other social history from Department of Defense and Veterans Affairs facilities. Social History Type Response Date Comment Sourc e Sex Representation Male 12/07/2021 Unknow n Organization Tobacco Never-cigarette user Cigarette use:. Never-other tobacco user (not cigarettes) Other Tobacco use:. Ambulatory Pharmacy Sexual Orientation Ambula tory Pharmacy Gender identity Ambulator y Pharmacy Assessment and Plan Combined list of future care activities from Department of Defense and Veterans [facility] facilities (e.g., assessment and plan notes, appointments, orders, and referrals). Additional future care activities may be listed in the Plan of Care section. 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 ?Use electric clippers [...] refill(s), Maintenance, 1 appl(s) Topical Daily, Pharmacy: [facility] [Not filled] ? 12/11/2024 151-Yogesh [facility] Functional Status Combined list of recent functional and cognitive assessments recorded at Department of Defense and Veterans Affairs (VA).VA Functional [place] Measurement (FIM) Scale: 1 = Total Assistance (Subject = 0% +), 2 = Maximal Assistance (Subject = 25% +), 3 = Moderate Assistance (Subject = 50% +), 4 = Minimal Assistance (Subject = 75% +), 5 = Supervision, 6 = Modified [place] (Device), 7 = Complete [place] (Timely, Safely). Assessment Date/Time Source Assessment Type Assessment Skill Assessment Score Assessment Details No data available for this section
== END 2024-12-11 08:25 | disposition home or self-care (01) ==
LOC: HO.HOSX 08:24
DX: S68.110A Complete traumatic metacarpophalangeal amputation of right index finger, initial encounter (principal); M79.641 Pain in right hand
CPT/HCPCS: 73130; 99202

== ENCOUNTER 2024-12-11 10:24 | Outpatient (AMB) | payer SELFPAY ==
[2024-12-11 10:27] VITALS: BMI 27.3
--- NOTE | 2024-12-11 10:27 | A.OFFVIS_ITS ---
Vital Signs 12/11/24 10:27 Height 5 ft 10 in Weight 190 lb BMI 27.3 Intake Visit Reasons: FC - RT IF distal phalanx amp/FX DOI 12/09/24 Intake Note: Pt presents to the office today for a fracture care visit for a RT IF distal phalanx amp/FX DOI 12/09/24. Pt states on 12/09/24 he got his finger stuck in a wench at work and as he pulled back it took the tip of his index finger off. Pt states he has minimal pain. Pt states he has had the bandage on since being seen at the ED on 12/09/24. Pt denies any previous injuries or surgeries to his right hand. Allergies No Known Allergies Allergy (Verified 12/11/24 10:27) HPI HPI FC - RT IF distal phalanx amp/FX DOI 12/09/24: Details: Pt presents to the office today for a fracture care visit for a RT IF distal phalanx amp/FX DOI 12/09/24. Pt states on 12/09/24 he got his finger stuck in a wench at work and as he pulled back it took the tip of his index finger off. Pt states he has minimal pain. Pt states he has had the bandage on since being seen at the ED on 12/09/24. Pt denies any previous injuries or surgeries to his right hand. Review of Systems Const All systems reviewed & are unremarkable except as noted in HPI and below Physical Exam Vital Signs: BMI result Body Mass Index 27.3 Extrem Other: Patient is alert, oriented, and in no acute distress. Neuro: Normal sensation of the tips of all other digits of the right hand at this time Vascular: Cap refill brisk Patient is able to make a closed fist and extend the 2nd through 5th digits of the right hand without difficulty Skin: Traumatic amputation just distal to the DIP joint of the right index finger No active bleeding at this time No drainage or other evidence of infection General: No ecchymosis, erythema, or evidence of infection. Psych: Appears grossly normal Affect normal Attitude cooperative Results Reviewed Results Reviewed: X-rays obtained in the office today and independently reviewed by me, Ed Malone PA-C, demonstrate traumatic amputation of the distal aspect of the distal phalanx of the right index finger, with the bone extending to the level of the skin. Assessment & Plan Assessment & Plan (1) Traumatic amputation of tip of right index finger: Code(s): S68.110A - Complete traumatic metacarpophalangeal amputation of right index finger, initial encounter Category: Medical Plan 1. Traumatic partial amputation of the right index finger Date of injury 12/09/2024 I educated the patient about the condition. I discussed both operative and nonoperative treatment options. The patient would like to proceed with surgery. The risks and benefits of operative treatment were discussed with the patient and the patient wishes to proceed with surgery. These risks include, but are not limited to, risk of damage to blood vessels, nerves, tendons, infection, recurrence, incomplete relief of preoperative symptoms, persistent pain, possible need for further surgery, and the risks associated with regional blocks and/or anesthesia. Plan is to take the patient to the operating room at some point in the next few weeks for the following procedures: 1. Right index finger amputation revision under general anesthesia All of the preoperative paperwork including the consent was discussed today. All of the patient's questions were answered in the clinic today. 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 Patient denies diabetes, blood thinners, asthma, heart issues, lung issues, kidney issues, or current smoking. Orders: Orders XR hand RT min 3V Today M79.641 - Pain in right hand Coding Level of Care Code New Pt Level 4 (21356) Diagnoses Traumatic amputation of tip of right index finger S68.110A
--- OUTSIDE RECORDS SUMMARY | 2024-12-11 11:46 | XMS_ITS | Continuity of Care Document ---
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 Name Role Phone [facility] Unavailable Unavailable Medications Combined list of outpatient [...] total refill(s ), Arley khan, Pharmacy : [facility] Topica l (on the skin) Ordered 2 2021 42.5 1511C-R melvin [facility] ibuprofen 800 mg oral tablet ibuprofe n [...] Site Reaction Lot Number CVX Code Drug Head Of Physics Status Comments Source hepatitis B adult vaccine 2020 zzPankaj ht Arm [id number] 43 GlaxoSmithKli ne complet ed hepatitis B adult vaccine 09/05/21 Given Ambulat ory Pharmac y varicella virus vaccine 2020 zzRig ht Arm [id number] 21 Merck & Company Inc complet ed varicella virus vaccine 09/05/21 Given Ambulat ory Pharmac y measles/mumps /rubella virus vaccine 2020 zzLef t Arm [id number] 03 Merck & Company Inc complet ed measles/m umps/rube lla virus vaccine 09/05/21 Given Ambulat ory Pharmac y COVID Vaccine Pfizer 2020 zzLef t Arm [id number] PFIZER complet ed COVID Vaccine Pfizer 09/05/21 Given Ambulat ory Pharmac y meningococcal A,C,Y,W-135 (MCV4P) 2020 zzRig ht Arm [id number] 114 sanofi pasteur complet ed meningoco ccal A,C,Y,W-1 35 (MCV4P) 08/07/21 Given Ambulat ory Pharmac y tetanus, diphtheria, acellular pertu is 2020 zzLef t Arm [id number] 115 GlaxoSmithKli ne complet ed tetanus, diphtheri a, acellular pertussis 08/07/21 Given Ambulat ory Pharmac y adenovirus vaccine, live 2020 [id number] 143 Unknown complet ed adenoviru s vaccine, live 08/07/21 Given Ambulat ory Pharmac y tuberculin purified protein derivative 2020 zzLef t Arm [id number] 96 sanofi pasteur complet ed tuberculi n purified protein derivativ e 08/07/21 Given Ambulat ory Pharmac y influenza, injectable, quadrivalent- pf 2020 zzLef t Arm [id number] 150 Seqirus complet ed influenza , injectabl e, quadrival ent-pf 08/07/21 Given Ambulat ory Pharmac y COVID Vaccine Pfizer 2020 zzLef t Arm [id number] 208 PFIZER complet ed COVID Vaccine Pfizer 08/07/21 Given Ambulat ory Pharmac y hepatitis B adult vaccine 2020 zzRig ht Arm [id number] 43 GlaxoSmithKli ne complet ed hepatitis B adult vaccine 08/07/21 Given Ambulat ory Pharmac y varicella virus vaccine 2020 zzRig ht Arm [id number] 21 Merck & Company Inc complet ed varicella virus vaccine 08/07/21 Given Ambulat ory Pharmac y measles/mumps /rubella virus vaccine 2020 zzLef t Arm [id number] 03 Merck & Company Inc complet ed measles/m umps/rube lla virus vaccine 08/07/21 Given Ambulat ory Pharmac y poliovirus vaccine, inactivated 2020 zzRig ht Arm [id number] complet ed polioviru s vaccine, inactivat ed 08/07/21 Given Ambulat ory Pharmac y Vital Signs Combined list of inpatient and outpatient Vital Signs from Department of Defense and Veterans Affairs, ranging from 12 months to all on record, depending upon the facility. Vital Sign Value Date Comments Source BP Site Left arm 01/30/2022 13:15:[address] [place] [address] Temperature Temporal Artery 36.5 Marily 01/30/2022 13:15:[address] [place] [address] Systolic Blood Pressure 126 mm[Hg] 01/31/20 13:15:[address] [place] [address] Diastolic Blood Pressure 75 mm[Hg] 022 13:15:[address] [place] [address] Peripheral Pulse Rate 98 bpm 01/30/2022 13:15:[address] [place] [address] Blood Pressure Manual Automatic 01/30/2022 13:15:[address] [place] [address] Mean Arterial Pressure, Calc 92 mm[Hg] 01/30/2022 13:15:[address] [place] [address] Respiratory Rate 14 br/min 01/30/2022 13:15:[address] [place] [address] Peripheral Pulse Rate 74 bpm 12/15/2021 15:01:[address] [place] [address] Systolic Blood Pressure 109 mm[Hg] 12/16/19 22 15:01:[address] [place] [address] Diastolic Blood Pressure 54 mm[Hg] 022 15:01:[address] [place] [address] Respiratory Rate 16 br/min 12/15/2021 15:01:[address] [place] [address] Mean Arterial Pressure, Calc 72 mm[Hg] 12/15/2021 15:01:[address] [place] [address] Temperature Temporal Artery 36.5 Marily 12/15/2021 15:01:[address] [place] [address] Blood Pressure Manual Automatic 12/15/2021 15:01:[address] [place] [address] [facility] Procedures Combined list of: 1) Procedures from [...] activities from Department of Defense and [facility] facilities (e.g., assessment and plan notes, appointments, orders, and referrals). Additional future care activities may be listed in the Plan of Care section. Result Assessment and Plan Date Source Assessment and Plan Extracted from:Title : Office Clinic Note Author: OZ FULTON, JERRELL Jeffers Date: 01/30/22 1.?EXAM, OCCUPATIONAL, PRISON OR SEPARATION FROM [employer], LONG ?No current health conditions or medication [...] refill(s), Maintenance, 1 appl(s) Topical Daily, Pharmacy: [facility] [Not filled] ? 12/11/2024 151-Yogesh [facility] Functional Status Combined list of recent functional and cognitive assessments recorded at Department of Defense and Veterans Affairs (VA).VA Functional [place] Measurement (FIM) Scale: 1 = Total Assistance (Subject = 0% +), 2 = Maximal Assistance (Subject = 25% +), 3 = Moderate Assistance (Subject = 50% +), 4 = Minimal Assistance (Subject = 75% +), 5 = Supervision, 6 = Modified [place] (Device), 7 = Complete [place] (Timely, Safely). Assessment Date/Time Source Assessment Type Assessment Skill Assessment Score Assessment Details No data available for this section
--- OUTSIDE RECORDS SUMMARY | 2024-12-11 11:46 | XMS_ITS | Continuity of Care Document ---
Author Organization Sathya Pollard [facility] Address [address] [place] [address] Phone Care Team Providers [facility] Representative Name Role Phone Thania BILLIE Tasia Unavailable [...] Copied on Encounter OFFICE/OUTPA TIENT VISIT, EST [facility] [address] [facility] [address], [place], [id number], [place] tel:[phone] [facility] stomach pain (chief complaint) Rib pain 3 Schierberl Tasia. [address] [place], [place], [id number], [place]. tel:[phone] [facility], [address] [place] [address] ng [address], [place], [id number], [place] tel:[phone] [facility] No Information 1 Alejandro Ha. [address] [place], [place], [id number]. tel:[phone] PREV VISIT, EST, AGE 18-39 [facility], [address] [facility] [address], [place], [place], [id number], [place] tel:[phone] Tele [facility] APE. (chief complaint) Encounter for general adult medical examination without abnormal findingsBody mass index [BMI] pediatric, 85th percentile to less than 95th percentile for age 1 Sarah Osorio. [address], [place], [id number], [place]. tel:[phone] [facility], [address] [place] [address] [address], [place], [place], [id number], [place] tel:[phone] [facility] Patient left without being seen 1 Sarah Osorio. [address], [place], [id number], [place]. tel:[phone] [facility], [address] [place] [address] [address], [place], [id number], [place] tel:[phone] Tele [facility] No Information Cesar-0 0 Viki Lara. [address] [place], [place], [id number]. 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 . Consulting Provider: Carmen Bella, [address] [place], [address]. tel:[phone] PREV VISIT, EST, AGE 18-39 [facility], [address] [place] [address] 2,[address], [place], [place], [id number], [place] tel:[phone] [facility] Well child (chief complaint) Eczema, unspecified typeEncntr for general adult medical exam w/o abnormal findings 9 Sarah Osorio. [address], [place], [id number], [place]. tel:[phone] OFFICE/OUTPA TIENT VISIT, EST [facility], [address] [facility] [address], [place], [place], [id number], [place] tel:[phone] [facility] nail problem (chief complaint) Ingrown toenail of right foot with infection 9 Yvonne Antonio. [address] [place] [address], [id number]. tel:[phone] [facility], [address], [place], [place], [id number], [place] tel:[phone] [facility] ingrown toenail (chief complaint) Patient left without being seen 9 Yvonne Alvarez. [address], [place], [id number]. tel:[phone] OFFICE/OUTPA TIENT VISIT, EST [facility], [address], [id number], [place] tel:[phone] [facility] R great toenail ingrown (chief complaint) eczema flare (chief complaint) Ingrown toenail of right foot with infectionEcze ma, unspecified type 9 Viki Lara. [address] [place] [address], [id number]. tel:[phone] OFFICE/OUTPA TIENT VISIT, EST [facility], [address] [facility] [address], [place], [place], [id number], [place] tel:[phone] [facility] rash. (chief complaint) Eczema, unspecified type 9 Rosaline Welsh. [address] [place] [address], [id number], [place]. tel:[phone] PREV VISIT, EST, AGE 12-17 [facility], [address], [place], [place], [id number], [place] tel:[phone] [facility] Well Child (chief complaint) Encntr for routine child health exam w/o abnormal findings 8 No Information PREV VISIT, EST, AGE 12-17 [facility], [address] [facility] [address], [place], [place], [id number], [place] tel:[phone] [facility] Well Child (chief complaint) Encounter for routine child health examination with abnormal findingsEczem a, unspecified type 6 No Information OFFICE/OUTPA TIENT VISIT, EST [facility], [address] [facility] [address], [place], [place], [id number], [place] tel:[phone] [facility] Skin sx (chief complaint) Eczema, unspecified type 6 No Information PREV VISIT, EST, AGE 12-17 [facility], [address] [facility] [address], [place], [place], [id number], [place] tel:[phone] [facility] Well child (chief complaint) Eczema (chief complaint) Encounter for routine child health examination with abnormal findingsEczem a, unspecified eczema 5 No Information OFFICE/OUTPA TIENT VISIT, EST [facility], [address] [facility],[address], [place], [place], [id number], [place] tel:[phone] [facility] fall on l. knee,seen in ER (chief complaint) Contusion of left knee 5 No Information PREV VISIT, EST, AGE 12-17 [facility], [address] [facility] [address], [place], [place], [id number], [place] tel:[phone] [facility] Well Child (chief complaint) ROUTIN CHILD HEALTH EXAM 4 No Information OFFICE/OUTPA TIENT VISIT, EST [facility], [address] [facility] [address], [place], [place], [id number], [place] tel:[phone] [facility] eczema (chief complaint) Contact dermatitis and other eczema, unspecified causeOnychomy cosis - 4 No Information OFFICE/OUTPA TIENT VISIT, EST [facility], [address] [facility],[address], [place], [place], [id number], [place] tel:[phone] [facility] fever (chief complaint) diarrhea (chief complaint) Abdominal pain 3 No Information PREV VISIT, EST, AGE 5-11 [facility], [address] [facility] [address], [place], [place], [id number], [place] tel:[phone] [facility] Well child - 11 Years (chief complaint) Routine infant or child health checkContact dermatitis and other eczema, unspecified causeRoutine infant or child health check 3 No Information OFFICE/OUTPA TIENT VISIT, EST [facility], [address] [facility],[address], [place], [place], [id number], [place] tel:[phone] [facility] skin itching (chief complaint) EczemaNeed for prophylactic vaccination and inoculation against other specified single bacterial diseaseNEED FOR PROPHYLACTIC VACCINATION WITH COMBINED DIPHTHERIA-TE TANUS-PERTUSS IS (DTP) (DTAP) VACCINE - 3 No Information FAMILY PSYTX W/PATIENT ciro [facility], [address], [place], [place], [id number], [place] tel:[phone] [facility] Persistent adjustment disorder 2 No Information PREV VISIT, EST, AGE 5-11 ciro [facility], [address], [place], [place], [id number], [place] tel:[phone] [facility] Well child - 10 Years (chief complaint) Routine or child health checkRoutine infant or child health check 0- 2 No Information OFFICE/OUTPA TIENT VISIT, EST ciro [facility], [address], [place], [place], [id number], [place] tel:[phone] [facility] neck pain (chief complaint) Cervicalgia 2 No Information [facility], [address], [place], [place], [id number], [place] tel:[phone] [facility] No Information 1 No Information ciro [facility], [address], [place], [place], [id number], [place] tel:[phone] [facility] No Information 0 No Information [facility], [address], [place], [place], [id number], [place] tel:[phone] [facility] No Information 9 Viki Lara. [address] [place] [address], [id number]. tel:[phone] [facility], [address], [place], [place], [id number], tel:[phone] [facility] No Information Dec- No Information Family History [...] Insurance type Covered republican ID Authoriza tion(s) [id number] [id number] [facility] [id number] [facility] [id number] Social History Type Description Quantity Date Captured [...] back which helped a lot. Works at [employer], does a lot of heavy lifting. No [...] back which helped a lot. Works at [employer], does a lot of heavy lifting. No recent gym/strenous exercise.ROS neg for CP, reflux, cough, fevers, recent URI, n/vnonsmokerneg fhx sudden cardiac or stomach dz APE. 19yo M here for CRISSY w/mom and brotherLast visit w/me in 07/[id number]) Eczema.Was recently referred to derm but no-showed appt on `06/30/19PSH: noneAllergies: NKDA/NKFAMeds: steroid creamSH: lives w/mom, dad, and brother. no smokers, no petsSchool - [employer] for general studies - was thinking about zoology but unsure. 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 no smokers, no petsschool - [employer], senior. work - [employer]. exercises - 45 minutes every day. is planning on doing basketball and baseballPlans to go to [facility] - zoologistDiet: no vegetables or fruits. eats [...]
== END 2024-12-11 11:19 | disposition home or self-care (01) ==
DX: S68.110A Complete traumatic metacarpophalangeal amputation of right index finger, initial encounter (principal)
CPT/HCPCS: 99204

== ENCOUNTER → 2024-12-11 10:26 | Outpatient (BNV) | payer SELFPAY | PROVIDERS: Visit Provider Radiology Diagnostic Radiology | DX: S68.620A Partial traumatic transphalangeal amputation of right index finger, initial encounter (principal) | CPT/HCPCS: 73130 ==

== ENCOUNTER 2024-12-14 06:04 | Day surgery (SDC) | payer SELFPAY ==
--- OUTSIDE RECORDS SUMMARY | 2024-12-10 17:56 | XMS_ITS | Continuity of Care Document ---
Author Name [facility] Organization [facility] Care Team Providers Care Radiation Technician Name Role Phone [facility] Unavailable Unavailable Medications Combined list of outpatient [...] total refill(s ), Arley khan, Pharmacy : [facility] Topica l (on the skin) Ordered 2 2021 42.5 1511C-R melvin [facility] ibuprofen 800 mg oral tablet ibuprofe n [...] Site Reaction Lot Number CVX Code Drug Social Scientist Status Comments Source hepatitis B adult vaccine 2020 zzPankaj ht Arm [id number] GlaxoSmithKli ne complet ed hepatitis B adult vaccine 09/05/21 Given Ambulat ory Pharmac y varicella virus vaccine 2020 zzRig ht Arm [id number] Merck & Company Inc complet ed varicella virus vaccine 09/05/21 Given Ambulat ory Pharmac y measles/mumps /rubella virus vaccine 2020 zzLef t Arm [id number] Merck & Company Inc complet ed measles/m umps/rube lla virus vaccine 09/05/21 Given Ambulat ory Pharmac y COVID Vaccine Pfizer 2020 zzLef t Arm [id number] PFIZER complet ed COVID Vaccine Pfizer 09/05/21 Given Ambulat ory Pharmac y measles, mumps and rubella virus vaccine 2 2020 PHAM, ALESI A [id number] Merck (MSD) complet ed measles, mumps and rubella virus vaccine DoD varicella virus vaccine 2 2020 PHAM, ALESI A [id number] 21 Merck (MSD) complet ed varicella virus vaccine DoD Hepatitis B vaccine (recombinant) , CpG adjuvanted 2 2020 PHAM ALESI A [id number] [facility] [employer]ologiesCIBDO (SKB) complet ed Hepatitis B vaccine (recombin ant), CpG adjuvante d DoD SARS-COV-2 (COVID-19) vaccine, mRNA, spike protein, LNP, preservative free, 30 mcg/0.3mL dose 2 2020 ANKIT ALESI A [id number] Pfizer, Inc (PFR) complet ed SARS-COV- 2 (COVID-19 ) vaccine, mRNA, spike protein, LNP, preservat benson free, 30 mcg/0.3mL dose DoD meningococcal A,C,Y,W-135 (MCV4P) 2020 Tu Arm [id number] sanofi pasteur complet ed meningoco ccal A,C,Y,W-1 35 (MCV4P) 08/07/21 Given Ambulat ory Pharmac y tetanus, diphtheria, acellular pertu is 2020 zzLef t Arm [id number] 115 SyntropharmaKli ne complet ed tetanus, diphtheri a, acellular pertussis 08/07/21 Given Ambulat ory Pharmac y adenovirus vaccine, live 2020 [id number] 143 Unknown complet ed adenoviru s vaccine, live 08/07/21 Given Ambulat ory Pharmac y tuberculin purified protein derivative 2020 zzLef t Arm [id number] sanofi pasteur complet ed tuberculi n purified protein derivativ e 08/07/21 Given Ambulat ory Pharmac y influenza, injectable, quadrivalent- p[id number] 150 Seqirus complet ed influenza , injectabl e, quadrival ent-pf 08/07/21 Given Ambulat ory Pharmac y COVID Vaccine Pfizer 2020 zzLef t Arm [id number] PFIZER complet ed COVID Vaccine Pfizer 08/07/21 Given Ambulat ory Pharmac y hepatitis B adult vaccine 2020 zzRig ht Arm [id number] 43 GlaxoSmithKli ne complet ed hepatitis B adult vaccine 08/07/21 Given Ambulat ory Pharmac y varicella virus vaccine 2020 zzRig ht Arm [id number] 21 Merck & Company Inc complet ed varicella virus vaccine 08/07/21 Given Ambulat ory Pharmac y measles/mumps /rubella virus vaccine 2020 zzLef t Arm [id number] Merck & Company Inc complet ed measles/m umps/rube lla virus vaccine 08/07/21 Given Ambulat ory Pharmac y poliovirus vaccine, inactivated [id number] complet ed polioviru s vaccine, inactivat ed 08/07/21 Given Ambulat ory Pharmac y measles, mumps and rubella virus vaccine 1 2020 HUEY HARRISON [id number] Merck (MSD) complet ed measles, mumps and rubella virus vaccine DoD poliovirus vaccine, inactivated 1 2020 HUEY HARRISON [id number] 10 Moderna [employer] (MOD) complet ed polioviru s vaccine, inactivat ed DoD varicella virus vaccine 1 2020 HUEY HARRISON [id number] 21 Merck (MSD) complet ed varicella virus vaccine DoD tuberculin skin test; purified protein derivative solution, intradermal 1 2020 HUEY HARRISON [id number] Sanofi Pasteur (PMC) complet ed tuberculi n skin test; purified protein derivativ e solution, intraderm al DoD meningococcal polysaccharid e (groups A, C, Y and W-135) diphtheria toxoid conjugate vaccine (MCV4P) 1 2020 HUEY HARRISON [id number] Sanofi Pasteur (PMC) complet ed meningoco ccal polysacch aride (groups A, C, Y and W-135) diphtheri a toxoid conjugate vaccine (MCV4P) DoD tetanus toxoid, reduced diphtheria toxoid, and acellular pertu is vaccine, adsorbed 1 2020 HUEY HARRISON [id number] 115 [facility] (SK) complet ed tetanus toxoid, reduced diphtheri a toxoid, and acellular pertussis vaccine, adsorbed DoD Adenovirus, type 4 and type 7, live, oral 1 2020 HUEY HARRISON [id number] 143 Unknown (UNK) complet ed Adenoviru s, type 4 and type 7, live, oral [facility] Influenza, injectable, quadrivalent, preservative free 1 2020 HUEY HARRISON [id number] 150 Seqirus (SEQ) complet ed Influenza , injectabl e, quadrival ent, preservat benson free [facility] Hepatitis B vaccine (recombinant) , CpG adjuvanted 1 2020 HUEY HARRIOSN [id number] 189 [facility] (BIANCA) complet ed Hepatitis B vaccine (recombin ant), CpG adjuvante d [facility] SARS-COV-2 (COVID-19) vaccine, mRNA, spike protein, LNP, preservative free, 30 mcg/0.3mL dose 1 2020 HUEY HARRISON [id number] Pfizer, Inc (PFR) complet ed SARS-COV- 2 (COVID-19 ) vaccine, mRNA, spike protein, LNP, preservat benson free, 30 mcg/0.3mL dose [facility] Vital Signs Combined list of inpatient and outpatient Vital Signs from Department of Defense and Veterans Affairs, ranging from 12 months to all on record, depending upon the facility. Vital Sign Value Date Comments Source BP Site Left [facility] Temperature Temporal Artery 36.5 Marily 01/30/2022 [facility] Systolic Blood Pressure 126 mm[Hg] 01/31/20 22 [facility] Diastolic Blood Pressure 75 mm[Hg] 022 [facility] Peripheral Pulse Rate 98 bpm 01/30/2022 [facility] Blood Pressure Manual Automatic 01/30/2022 [facility] Mean Arterial Pressure, Calc 92 mm[Hg] 01/30/2022 [facility] Respiratory Rate 14 br/min 01/30/2022 [facility] Peripheral Pulse Rate 74 bpm 12/15/2021 15:[facility] Systolic Blood Pressure 109 mm[Hg] 12/16/19 22 15:[facility] Diastolic Blood Pressure 54 mm[Hg] 022 [facility] Respiratory Rate 16 br/min 12/15/2021 15:[facility] Mean Arterial Pressure, Calc 72 mm[Hg] 12/15/2021 15:01:[address] [place] [address] Temperature Temporal Artery 36.5 Marily 12/15/2021 [facility] Blood Pressure Manual Automatic 12/15/2021 15:01:[address] [place] [address] Encounters Combined list of: 1) Encounters from Department of Veterans Affairs facilities going backup to the last 18 months, not all VA inpatient encounters are included; 2) Encounters from the Department of Defense facilities going backup to 280 months. Location Location Details Encounter Type Encounter Number Reason For Visit Attending Provider ADM Date DC Date Status Disposition Source [facility] [place]) OUTPAT[facility] [id number] DON DONISophia 08/03 Released w/o Limitations [facility] [place] [place]([facility]) OUTPATIENT [id number] 1 KHLOE ANAYA 08/07 Released w/o Limitations [facility] [place]([facility]) [facility] [place] OUTPATIENT [id number] 1 FIRST VISIT FOR IMMUNIZ ATISIAH WEST 08/07 Released w/o Limitations [facility] [place]([facility] [employer] [facility] ) [facility] [place] OUTPATIENT [id number] SECOND VISIT FOR IMMUNIZ MIGUELINA SORIANO 09/05 Released w/o Limitations [facility] [place]([facility] [employer] ) Procedures Combined list of: 1) Procedures from Department of [facility] Affairs facilities going back up to thelast 18 months, not all VA non-surgical procedures are included; 2) All procedures from the Department of Defense facilities. Procedure Procedure Type Code Date Perfomer Comments Sourc e IMMUNIZATION ADM,INTRAMUSCULAR INJ,SEVERE AC RESPIRATORY SYNDROME CORONAVIR 2 (SARSCOV-2) (CORONAVIR DIS [COVID-19]) VACC,MRNALNP,SPIKE PROT,PRESRV FREE,30 MCG/0.3ML DOS,DILUENT RECONSTITUT;2ND DOSE 2020 [facility] COLLECTION OF VENOUS BLOOD BY VENIPUNCTURE 2020 [facility] OPHTHALMOLOGICAL SERVICES: MEDICAL EXAMINATION AND EVALUATION WITH INITIATION OF DIAGNOSTIC AND TREATMENT PROGRAM; INTERMEDIATE, NEW PATIENT 2020 [facility] PURE TONE AUDIOMETRY (THRESHOLD), AUTOMATED; AIR ONLY 2020 [facility] Patient education, not otherwise cla ified, non-physician provider, group, per se ion DIONNE OCHOA Threshold Audiogram (Pure Tone) Automated Threshold Audiogram (Pure Tone) Automated 0208T DIONNE OCHOA [facility] Spectacles Services Fitting Monofocal Except For Aphakia Spectacles Services Fitting Monofocal Except For Aphakia [id number] [address]SY [address]AG[address]ALE [facility] Ophthalmological New Patient Start Intermediate Level Care Ophthalmological New Patient Start Intermediate Level Care 85091 BETSY RAGSDALE [facility] Vaccines Viral Measles, Mumps and Rubella, Live Vaccines Viral Measles, Mumps and Rubella, Live 60379 HUEY HARRISON MMR; Series #: 1; 0.5 mL; SC; Left Arm; Mfg: Merck; Lot: [id number]; VIS given (Artem: 05/05/2021). [facility] Vaccines Viral Polio, Inactivated Vaccines Viral Polio, Inactivated 73505 HUEY HARRISON D IPV; Series #: 1; 0.5 mL; IM; Right Arm; Mfg: [employer].; Lot: [id number]; VIS given (Artem: 05/05/21; 12/30/19 - Multiple). [facility] Vaccines Viral Varicella (Active) Vaccines Viral Varicella (Active) 17101 HUEY HARRISON Varicella; Series #: 1; 0.5 mL; SC; Right Arm; Mfg: Merck; Lot: [id number]; VIS given (Artem: 05/05/2021). [facility] Skin Test Anergy Tuberculin Intradermal Skin Test Anergy Tuberculin Intradermal 86842 HUEY HARRISON IPPD; Series #: 1; 0.1 mL; ID; Left Arm; Mfg: [employer] Systemso[employer] Pasteur; Lot: [id number]; VIS given. [facility] Meningococcal Polysaccharide Diphtheria Toxoid Conjugate Vaccine Meningococcal Polysaccharide Diphtheria Toxoid Conjugate Vaccine 28466 HUEY HARRISON Meningococcal MCV4P (Menactra); Series #: 1; 0.5 mL; IM; Right Arm; Mfg: Sanofi Pasteur; Lot: [id number]; VIS given (Artem: 05/05/2021). [facility] Tdap Vaccine Tdap Vaccine 35434 HUEY HARRSION Tdap; Series #: 1; 0.5 mL; IM; Left Arm; Mfg: Tyros; Lot: [id number]; VIS given (Artem: 05/05/2021). [facility] Vaccines Vaccines 81144 HUEY HARRISON Adenovirus Type 4 and 7; Series #: 1; 2 tablets; PO; Oral; Mfg: Unknown; Lot: [id number]; VIS given (Artem: 10/07/2019). [facility] Influenza Split Virus Vaccine IM Preserv Free 0.5mL Dosage Quadrivalent Influenza Split Virus Vaccine IM Preserv Free 0.5mL Dosage Quadrivalent 73289 HUEY HARRISON Influenza, Inj., quad., preservative free; Series #: 1; 0.5 mL; IM; Left Arm; Mfg: Seqirus; Lot: [id number]; VIS given (Artem: 05/05/2021). [facility] Hepatitis B Vaccine (Active) Adult Dosage 2 Dose Schedule HUEY HARRISON Hep B- CpG (Heplisav-B); Series #: 1; 0.5 mL; IM; Right Arm; Mfg: Tyros; Lot: [id number]; VIS given (Artem: 05/14/2019). [facility] Vaccine SARS-CoV-2 mRNA-LNP Hugo Protein Preservative Free 30mcg/0.3mL Diluent Reconstituted IM Vaccine SARS-CoV-2 mRNA-LNP Hugo Protein Preservative Free 30mcg/0.3mL [place] [address] HUEY HARRISON COVID-19, 30 mcg/0.3 mL dose (Pfizer 12+ years); Series #: 1; 0.3 mL; IM; Left Arm; [facility]: Zipnosis; Lot: [id number]; VIS given (Artem: 05/22/2021). [facility] Immunization Administration By Injection, One Vaccine Immunization Administration By Injection, One Vaccine 95438 HUEY HARRISON Immunization Administration By Injection, Each Additional Vaccine Immunization Administration By Injection, Each Additional Vaccine 17191 HUEY HARRISON Immunization Admin By Intranasal / Oral Route One Vaccine Immunization Admin By Intranasal / Oral Route One Vaccine 10324 HUEY HARRISON Vacc SARS-CoV-2 mRNA-LNP Hugo Protein Preservative Free 30mcg/0.3mL Diluent Reconstituted IM First Dose Vacc SARS-CoV-2 mRNA-LNP Hugo Protein Preservative Free 30mcg/0.3mL Diluent Reconstituted IM First Dose 0001A HUEY HARRISON Physician Supervised Injection Intramuscular Physician Supervised Injection Intramuscular 37460 HUEY HARRISON Venipuncture Venipuncture 04310 HUEY HARRISON [facility] Vaccines Viral Measles, Mumps and Rubella, Live Vaccines Viral Measles, Mumps and Rubella, Live 43671 PHAM, ALESI A MMR; Series #: 2; 0.5 mL; SC; Left Arm; [facility] Inneractive; Lot: [id number]; VIS given (Artem: 05/05/2021). [facility] Vaccines Viral Varicella (Active) Vaccines Viral Varicella (Active) 13644 PHAM, ALESI A Varicella; Series #: 2; 0.5 mL; SC; Right Arm; [facility] Inneractive; Lot: [id number]; VIS given (Artem: 05/05/2021). [facility] Hepatitis B Vaccine (Active) Adult Dosage 2 Dose Schedule PHAM, ALESI A Hep B- CpG (Heplisav-B); Series #: 2; 0.5 mL; IM; Right Arm; [facility]: Tyros; Lot: [id number]; VIS given (Artem: 05/14/2019). DoD Vaccine SARS-CoV-2 mRNA-LNP Hugo Protein Preservative Free 30mcg/0.3mL Diluent Reconstituted IM Vaccine SARS-CoV-2 mRNA-LNP Hugo Protein Preservative Free 30mcg/0.3mL [place] [address] CATHY PHAM COVID-19, 30 mcg/0.3 mL dose (Pfizer 12+ years); Series #: 2; 0.3 mL; IM; Left Arm; Mfg: Zipnosis; Lot: [id number]; VIS given (Artem: 05/22/2021). DoD Vacc SARS-CoV-2 mRNA-LNP Hugo Protein Preservative Free 30mcg/0.3mL Diluent Reconstituted IM Second Dose Vacc SARS-CoV-2 mRNA-LNP Hugo Protein Preservative Free 30mcg/0.3mL Diluent Reconstituted IM Second Dose 0002A CATHY PHAM [facility] No data available for this section Ambulato ry Pharmacy Social History Combined list of available smoking, tobacco, and other social history from Department of Defense and Veterans Affairs facilities. Social History Type Response Date Comment [facility] e Sex Representation Male 12/07/2021 Unknow n Organization This section is an empty social history section. [facility] Tobacco Never-cigarette user Cigarette use:. Never-other tobacco user (not cigarettes) Other Tobacco use:. Ambulatory Pharmacy Sexual Orientation Ambula tory Pharmacy Gender identity Ambulator y Pharmacy Assessment and Plan Combined list of future care activities from Department of Defense and Veterans Affairs facilities (e.g., assessment and plan notes, appointments, orders, and referrals). Additional future care activities may be listed in the Plan of Care section. 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 12/10/2024 [facility] Functional Status Combined list of recent functional and cognitive assessments recorded at Department of Defense and Veterans Affairs (VA).VA Functional [place] Measurement (FIM) Scale: 1 = Total Assistance (Subject = 0% +), 2 = Maximal Assistance (Subject = 25% +), 3 = Moderate Assistance (Subject = 50% +), 4 = Minimal Assistance (Subject = 75% +), 5 = Supervision, 6 = Modified [place] (Device), 7 = Complete [place] (Timely, Safely). Assessment Date/Time Source Assessment Type Assessment Skill Assessment Score Assessment Details No data available for this section
--- OUTSIDE RECORDS SUMMARY | 2024-12-10 17:56 | XMS_ITS | Continuity of Care Document ---
Author Organization [facility] Address [address] [facility] [facility] [address] [place] [address] Phone Care Team Providers Care Open Die Inspector Name Role Phone Thania BILLIE Tasia Unavailable [...] Copied on Encounter OFFICE/OUTPA TIENT VISIT, EST [facility], [address] [facility],[address], [place], [id number], [place] tel:[phone] [facility] stomach pain (chief complaint) Rib pain 3 Schierberl Tasia. [address] [place], [place], [id number], [place]. tel:[phone] [facility], [address] [place] [address] ng [address], [place], [id number], [place] tel:[phone] [facility] No Information 1 Alejandro Ha. [address] [place], [place], [id number]. tel:[phone] PREV VISIT, EST, AGE 18-39 [facility], [address] [facility] [address], [place], [place], [id number], [place] tel:[phone] Tele [facility] APE. (chief complaint) Encounter for general adult medical examination without abnormal findingsBody mass index [BMI] pediatric, 85th percentile to less than 95th percentile for age 1 Sarah Osorio. [address], [place], [id number], [place]. tel:[phone] [facility], [address] [place] [address] ng [address], [place], [place], [id number], [place] tel:[phone] [facility] Patient left without being seen 1 Sarah Osorio. [address], [place], [id number], [place]. tel:[phone] [facility], [address] [place] [address] ng [address], [place], [id number], [place] tel:[phone] Tele [facility] No Information Cesar-0 0 Viki Lara. [address] [place], [place], [id number]. tel:[phone] [facility], [address] [facility] [address], [place], [place], [id number], [place] tel:[phone] [facility] Dermatitis, unspecified Cesar-0 0 [facility] Packer. . Consulting Provider: Carmen Bella, [address] [place], [address]. tel:[phone] PREV VISIT, EST, AGE 18-39 [facility], [address] [place] [address] 2,[address], [place], [place], [id number], [place] tel:[phone] [facility] Well child (chief complaint) Eczema, unspecified typeEncntr for general adult medical exam w/o abnormal findings 9 Sarah Osorio. [address], [place], [id number], [place]. tel:[phone] OFFICE/OUTPA TIENT VISIT, EST [facility], [address] [facility] [address], [place], [place], [id number], [place] tel:[phone] [facility] nail problem (chief complaint) Ingrown toenail of right foot with infection 9 Yvonne Antonio. [address] [place] [address], [id number]. tel:[phone] [facility], [address] [facility] [address], [place], [place], [id number], [place] tel:[phone] [facility] ingrown toenail (chief complaint) Patient left without being seen 9 Yvonne Alvarez. [address] [place], [place], [id number]. tel:[phone] OFFICE/OUTPA TIENT VISIT, EST [facility], [address] [facility] [address], [place], [id number], [place] tel:[phone] [facility] R great toenail ingrown (chief complaint) eczema flare (chief complaint) Ingrown toenail of right foot with infectionEcze ma, unspecified type 9 Viki Lara. [address] [place] [address], [id number]. tel:[phone] OFFICE/OUTPA TIENT VISIT, EST [facility], [address] [facility] [address], [place], [place], [id number], [place] tel:[phone] [facility] rash. (chief complaint) Eczema, unspecified type 9 Rosaline Welsh. [address] [place] [address], [id number], [place]. tel:[phone] PREV VISIT, EST, AGE 12-17 [facility], [address] [facility] [address], [place], [place], [id number], [place] tel:[phone] [facility] Well Child (chief complaint) Encntr for routine child health exam w/o abnormal findings 8 No Information PREV VISIT, EST, AGE 12-17 [facility], [address] [facility] [address], [place], [place], [id number], [place] tel:[phone] [facility] Well Child (chief complaint) Encounter for routine child health examination with abnormal findingsEczem a, unspecified type 6 No Information OFFICE/OUTPA TIENT VISIT, EST [facility], [address] [facility] [address], [place], [place], [id number], [place] tel:[phone] [facility] Skin sx (chief complaint) Eczema, unspecified type 6 No Information PREV VISIT, EST, AGE 12-17 [facility], [address] [facility] [address], [place], [place], [id number], [place] tel:[phone] [facility] Well child (chief complaint) Eczema (chief complaint) Encounter for routine child health examination with abnormal findingsEczem a, unspecified eczema 5 No Information OFFICE/OUTPA TIENT VISIT, EST [facility], [address] [facility],[address], [place], [place], [id number], [place] tel:[phone] [facility] fall on l. knee,seen in ER (chief complaint) Contusion of left knee 5 No Information PREV VISIT, EST, AGE 12-17 [facility], [address] [facility] [address], [place], [place], [id number], [place] tel:[phone] [facility] Well Child (chief complaint) ROUTIN CHILD HEALTH EXAM 4 No Information OFFICE/OUTPA TIENT VISIT, EST [facility], [address] [facility] [address], [place], [place], [id number], [place] tel:[phone] [facility] eczema (chief complaint) Contact dermatitis and other eczema, unspecified causeOnychomy cosis - 4 No Information OFFICE/OUTPA TIENT VISIT, EST [facility], [address] [facility],[address], [place], [place], [id number], [place] tel:[phone] [facility] fever (chief complaint) diarrhea (chief complaint) Abdominal pain 3 No Information PREV VISIT, EST, AGE 5-11 [facility], [address] [facility] [address], [place], [place], [address], [place] tel:[phone] [facility] Well child - 11 Years (chief complaint) Routine infant or child health checkContact dermatitis and other eczema, unspecified causeRoutine infant or child health check 3 No Information OFFICE/OUTPA TIENT VISIT, EST [facility], [address] [facility] [address], [place], [place], [id number], [place] tel:[phone] [facility] skin itching (chief complaint) EczemaNeed for prophylactic vaccination and inoculation against other specified single bacterial diseaseNEED FOR PROPHYLACTIC VACCINATION WITH COMBINED DIPHTHERIA-TE TANUS-PERTUSS IS (DTP) (DTAP) VACCINE - 3 No Information FAMILY PSYTX W/PATIENT c[facility], [address] [facility] [address], [place], [place], [id number], [place] tel:[phone] [facility] Persistent adjustment disorder 2 No Information PREV VISIT, EST, AGE 5-11 [facility], [address] [facility] [address], [place], [place], [id number], [place] tel:[phone] [facility] Well child - 10 Years (chief complaint) Routine or child health checkRoutine infant or child health check 0- 2 No Information OFFICE/OUTPA TIENT VISIT, EST c[facility], [address] [facility] [address], [place], [place], [id number], [place] tel:[phone] [facility] neck pain (chief complaint) Cervicalgia 2 No Information [facility], [address] [facility] [address], [place], [place], [id number], [place] tel:[phone] [facility] No Information 1 No Information c[facility], [address] [facility] [address], [place], [place], [address], [place] tel:[phone] [facility] No Information 0 No Information [facility], [address] [facility] [address], [place], [place], [id number], [place] tel:[phone] [facility] No Information 9 Viki Lara. [address] [place] [address], [id number]. tel:[phone] [facility], [address] [facility] [address], [place], [place], [address], tel:[phone] [facility] No Information Dec- No Information Family History [...] (PCV7) administered Source: New I mmunization Record Diph Tetanus ascell Pertussis administere d Source: New Immunization Record Hemophilus Influenza B administered Sourc e: New Immunization Record PREVNAR (PCV7) administered Source: New I mmunization Record Polio (Injection) administered Source: Ne w Immunization Record PREVNAR (PCV7) administered Source: New I mmunization Record Hemophilus Influenza B administered Sourc e: New Immunization Record Polio (Injection) administered Source: Ne w Immunization Record Diph Tetanus ascell Pertussis administere d Source: New Immunization Record HepB-Peds unknown Source: Other R egistry Hepatitis B (a) CHILD administered Source : New Immunization Record HepB-Peds unknown Source: Other R egistry Hepatitis B (a) CHILD administered Sourc e: New Immunization Record Flu (split) (3 yrs or older) cancelled Source: New Immunization Record Payers Payer name Insurance type Covered alliance party ID Authoriza tion(s) [address] [id number] [address] [id number] [facility] [id number] [facility] [id number] Social History Type Description Quantity Date Captured [...] back which helped a lot. Works at [employer], does a lot of heavy lifting. No recent gym/strenous exercise.ROS neg for CP, reflux, cough, fevers, recent URI, n/vnonsmokerneg fhx sudden cardiac or stomach dz Reason For Referral Reason For Referral No Information Plan Of Treatment Date Type Action Status Goal HPV (1st) due Goal APE. Due on due Goal Td vaccine. Due on due Goal Unhealthy drug use screening . Due on due Goal HPV (2nd) due Goal Influenza vaccine. Due on due Goal Diabetes Screening. Due on S due Goal HPV (3rd). Due on 8 due Goal Tdap. Due on due Goal Document SOGI Information. D ue on due Goal Unhealthy drug use screening . Due on due Goal Fluoride varnish application . Due on due Goal APE. Due on due Goal Diabetes Screening. Due on due Goal Tdap. Due on due Goal Influenza vaccine. Due on due Goal HPV (3rd). Due on 8 due Goal HPV (2nd) due Goal Document SOGI Information. D ue on due Goal Dietary management education , guidance, and counseling completed Goal Diabetes Screening. Due on due Goal APE. Due on due Goal Document SOGI Information. D ue on due Goal Fluoride varnish application . Due on due Goal Influenza vaccine. Due on due Goal HPV (2nd) due Goal HPV (3rd). Due on 8 due Goal HPV (2nd) due Goal Influenza vaccine. Due on due Goal APE. Due on due Goal Document SOGI Information. D ue on due Goal Pneumococcal vaccine due Goal Fluoride varnish application . Due on due Goal Diabetes Screening. Due on due Goal HPV (1st) due Goal HPV (3rd). Due on 8 due Goal Fluoride varnish application . Due on due Goal APE. Due on due Goal Pneumococcal vaccine due Goal HPV (3rd). Due on due Goal Document SOGI Information. D ue on due Goal Influenza vaccine. Due on due Goal HPV (1st) due Goal HPV (2nd) due Goal Diabetes Screening. Due on due Goal Pneumococcal vaccine due Goal HPV (1st) due Goal HPV (3rd). Due on due Goal HPV (2nd). Due on due Goal Influenza vaccine. Due on due Goal HPV (1st) due Goal HPV (3rd). Due on due Goal Pneumococcal vaccine due Goal Tdap. Due on due Goal Influenza vaccine. Due on De due Goal HPV (2nd). Due on 8 due Goal HPV (1st) due Goal Tdap. Due on due Goal Influenza vaccine. Due on De due Goal HPV (3rd). Due on due Goal Pneumococcal vaccine due Goal HPV (2nd). Due on due Goal Tdap. Due on due Goal Influenza vaccine. Due on De due Goal HPV (3rd). Due on due Goal Hearing screen (10-21 yr). D ue on due Goal HPV (2nd). Due on 8 due Goal HPV (1st) due Goal Pneumococcal vaccine due Goal Flouride Varnish. Due on Sep due Goal Fluoride varnish application . Due on due Goal Hematocrit due Goal Pneumococcal vaccine due Goal Tdap. Due on due Goal Tobacco Usage/Advice to Quit . Due on due Goal Influenza vaccine. Due on due Goal Flouride Varnish. Due on Oct due Goal HPV (1st) due Goal Hearing screen (10-21 yr). D ue on due Goal HPV (1st). Due on 6 due Goal Tobacco Usage/Advice to Quit . Due on due Goal Flouride Varnish. Due on Aug due Goal Influenza vaccine. Due on due Goal Hearing screen (10-21 yr). D ue on due Goal Hematocrit . Due on 016 due Goal Hematocrit . Due on 016 due Goal Hearing screen (10-21 yr). D ue on due Goal Hematocrit . Due on 015 due Goal Hearing screen (10-21 yr). D ue on due Referral Ordered: Referrals: Dermatology. Consult Appointment [...] back which helped a lot. Works at [employer], does a lot of heavy lifting. No recent gym/strenous exercise.ROS neg for CP, reflux, cough, fevers, recent URI, n/vnonsmokerneg fhx sudden cardiac or stomach dz APE. 19yo M here for [place]ISSY w/mom and brotherLast visit w/me in [id number]) Eczema.Was recently referred to derm but no-showed appt on `06/30/19PSH: noneAllergies: NKDA/NKFAMeds: steroid creamSH: lives w/mom, dad, and brother. no smokers, no petsSchool - [employer] for general studies - was thinking about zoology but unsure. 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 no smokers, no petsschool - [employer], senior. work - [employer]. exercises - 45 minutes every day. is planning on doing basketball and baseballPlans to go to [facility] - zoologistDiet: no vegetables or fruits. eats [...]
--- NOTE | 2024-12-11 09:45 | P.CONAN_ITS ---
Documented by User: Jamia Cheng NP 12/11/24 09:45 HPI - Anesthesia Eval Consult details Narrative: 24yo M for Right Index Finger Amputation Revision [facility], [facility] Past Medical History Medical History Eczema Surgical History Surgical History (Updated 12/14/24 @ 07:40 by Ondina Mueller MD) H/O wisdom tooth extraction Social History Social History Are you a primary outdoor emergency care technician to a significant other at home: No Do you presently have visiting nurse or other home services: No Patient Tobacco Use Status: Current everyday Tobacco user Tobacco use type: Smokeless Tobacco Use of substances other than those prescribed or required for medical reasons: No Have you been hit, kicked, punched, or otherwise hurt by someone within the past year? If so, by whom?: No Are you DNR?: No Advance Directives: No Advance Directives Information Provided: Yes Recently lost weight without trying: No Nutrition Risks: No Nutritional Risk Poor oral hygiene: No Meds Allergies Allergy/AdvReac Type Severity Reaction Status Date / Time No Known Allergies Allergy Verified 12/11/24 10:27 Assessment and Plan Assessment Anesthesia Assessment: Chart Reviewed Documented by User: Ondina Mueller MD 12/14/24 07:42 [facility], [facility] Past Medical History Medical History Eczema Family History Family history of problems with anesthesia: No Surgical History Surgical History (Updated 12/14/24 @ 07:40 by Ondina Mueller MD) H/O wisdom tooth extraction History of Problems with Anesthesia: No Social History Social History Are you a primary outdoor emergency care technician to a significant other at home: No Do you presently have visiting nurse or other home services: No Patient Tobacco Use Status: Current everyday Tobacco user Tobacco use type: Smokeless Tobacco Use of substances other than those prescribed or required for medical reasons: No Have you been hit, kicked, punched, or otherwise hurt by someone within the past year? If so, by whom?: No Are you DNR?: No Advance Directives: No Advance Directives Information Provided: Yes Recently lost weight without trying: No Nutrition Risks: No Nutritional Risk Poor oral hygiene: No Meds Allergies Allergy/AdvReac Type Severity Reaction Status Date / Time No Known Allergies Allergy Verified 12/11/24 10:27 Exam Height,Weight and Vital Signs: Height 5 ft 10 in Weight 90 kg Vital Signs Temp Pulse Resp BP Pulse Ox O2 Del Method 12/14/24 06:20 97.9 F 67 14 122/67 99 Room Air Airway Mallampati Class: II TM Dist: >3cm Neck ROM: Full Loose/Missing/Broken Teeth: Yes (Missing molars. Denies broken or loose teeth) Heart: RRR Lungs: CTAB Assessment and Plan Assessment Anesthesia Assessment: Anesthesia Plan Discussed and Chart Reviewed Final Anesthetic Review Family History of Problems with Anesthesia: No History of Problems with Anesthesia: No NPO: Yes ASA Class: II Final Preanesthetic Review: No Changes in Pt Med Stat, Meds/Allgs Chart Reviewed, Consent Obtained/Reviewed and Anes Risks/Benef Reviewed Patient Risk: Low Procedure Risk: Low Assessment/Block/Sedation in SS: Assess/Block/Sedation-SS Anesthetic Plan Anesthetic Plan: GA Disposition: Standard PACU
[2024-12-14 06:20] VITALS: BP 122/67; PULSE 67; RESP 14; TEMP 36.6; O2SAT 99; BMI 28.5
[2024-12-14] MEDS: Lactated Ringers 1,000 ML 100 ML IVCONT (06:45)
--- NOTE | 2024-12-14 07:42 | MHC.SHP ---
Pre-Procedural Eval Section A - 24 Hr Update-Section A only Date of Service: 12/14/24 The patient is an INPATIENT: No Changes since office visit: No Cold of Flu in the past 2 weeks, No New Medical Problems, No Changes in Medication and No Patient answered all questions The patient has been examined within 24 hours of the surgical procedure. The History & Physical has been completed within 30 days and I have reviewed it.: Yes Section B - Complete if H&P > 30 days Chief Complaint: Displaced fracture of distal phalanx of right Allergies: Allergies Allergy/AdvReac Type Severity Reaction Status Date / Time No Known Allergies Allergy Verified 12/11/24 10:27 Plan Diagnosis/Plan: Unchanged I have reviewed the history and physical and performed a pertinent physical examination on my patient. No changes have occurred unless specified. Assessment and plan: 1. Right index finger partial traumatic amputation I educated the patient about this condition We discussed operative and non operative treatment options and I am recommending a revision amputation. Patient would like to proceed with surgery. The risks and benefits of operative treatment were discussed with the patient and the patient wishes to proceed with surgery. These risks include, but are not limited to risk of damage to blood vessels, nerves, tendons, infection, recurrence, incomplete relief of preoperative symptoms, persistent pain, possible need for further surgery and the risks associated with regional blocks and anesthesia. The plan is to take the patient to the operating room today for the following procedures: 1. Right index finger revision amputation 2. [ ] All of the preoperative paperwork including the consent was filled out today. All the patient's questions were answered. Time Spent With Patient Time: Total time managing care of this patient today ____ minutes.
--- NOTE | 2024-12-14 07:44 | P.OP_ITS ---
Operative Note Operative Note Date of Service: 12/14/24 Narrative: Operative Note Narrative: Preop diagnosis: 1. Right index finger partial traumatic Amputation Postop diagnosis: Same Procedure: 1. Index finger Revision amputation 2. Right index finger I and D of open fracture of distal phalanx 3. Right index finger Excision of germinal and sterile nail matrices Surgeon: Sherlyn Bonner MD Aviation Support Equipment Repairer: None Anesthesia: General Anesthesia Findings: Amputation to level of eponychial fold. Implants: None Tourniquet time: 0 minutes EBL: 5.0 ml Specimen: None Drains: None Complications: None Disposition: Brought to the recovery room in stable condition Plan: Follow-up next week for wound check Anticipate suture removal in 3 weeks Continue antibiotics until finished Indications: The patient is 24 years old with a right index fingertip amputation where it got caught in a Winch . The risks and benefits of operative treatment, including but not limited to risk of damage to blood vessels, nerves, tendons, infection, recurrence, persistent pain or numbness, incomplete resolution of preoperative symptoms, or need for further surgery were discussed with the patient and they wished to proceed with surgery. Procedure: Once consent was obtained patient was brought back to the operating suite and placed in the operating table in a supine position. . Perioperative antibiotics and anesthesia was administered by the anesthesia team. A tourniquet was applied to the proximal aspect of the right upper extremity and the limb was prepped and draped in a standard surgical fashion. The tourniquet was not elevated. I did place a finger tourniquet about the base of the index finger for fewer than 30 minutes. The right index finger amputation site was debrided of nonviable tissue. The end of the bone was debrided using a curette where necessary and also shortened using a bone biter. The end of the bone was remove the sharp edges as possible using a small rongeur. The ends of the digital nerves were shortened as arturo cated. The wound was then copiously irrigated with normal saline. Our attention was turned to the nail bed. Because of the severity of this injury it was felt that the nail apparatus to would be best removed. The sterile and germinal matrices were carefully excised using a 15. Blade and then a rongeur. The skin edges at the paronychial fold and soft tissue injury were freshened using a 15. Blade or iris scissors removing only approximately 1 mm to facilitate healing at the skin edges. At this point the tourniquet was deflated and hemostasis obtained with a brief period of local pressure.. The wound was copiously irrigated with normal saline. The skin edges were reapproximated with 4-0 Prolene suture. A digital block was performed using some 0.5% plain ropivacaine for postop pain control and a sterile dressing was applied. The patient appears to have tolerated the procedure well and with no complications. All digits were well vascularized conclusion of the case.
[2024-12-14 09:06] VITALS: BP 109/42; PULSE 82; RESP 14; TEMP 36.6; O2SAT 98
[2024-12-14 09:10] VITALS: BP 128/74; PULSE 83; RESP 14; O2SAT 99
[2024-12-14 09:15] VITALS: BP 130/81; PULSE 73; RESP 14; O2SAT 98
[2024-12-14 09:20] VITALS: BP 134/92; PULSE 69; RESP 14; O2SAT 96
[2024-12-14 09:35] VITALS: BP 119/72; PULSE 64; RESP 16; TEMP 36.4; O2SAT 100
== END 2024-12-14 10:18 | disposition home or self-care (01) ==
PROVIDERS: Visit Provider Orthopaedic Surgery
PROC: (CPT 26236; principal; 2024-12-14 07:30)
DX: S68.620A Partial traumatic transphalangeal amputation of right index finger, initial encounter (principal); M79.641 Pain in right hand; W27.8XXA Contact with other nonpowered hand tool, initial encounter; Y93.89 Activity, other specified; Y92.69 Other specified industrial and construction area as the place of occurrence of the external cause; Y99.9 Unspecified external cause status; L30.9 Dermatitis, unspecified; F17.290 Nicotine dependence, other tobacco product, uncomplicated
CPT/HCPCS: 26236; 11750; J0131; J0690; J1596; J2003; J2004; J2250; J2405; J2704; J3010

== ENCOUNTER → 2024-12-14 06:04 | Outpatient (BNV) | payer SELFPAY | PROVIDERS: Visit Provider Orthopaedic Surgery | DX: S68.620A Partial traumatic transphalangeal amputation of right index finger, initial encounter (principal); S61.300A Unspecified open wound of right index finger with damage to nail, initial encounter | CPT/HCPCS: 11750; 26951 ==

== ENCOUNTER 2024-12-23 11:08 | Outpatient (AMB) | payer SELFPAY ==
--- NOTE | 2024-12-23 11:14 | A.OFFVIS_ITS ---
Vital Signs 12/23/24 11:15 Height 5 ft 10 in Weight 190 lb BMI 27.3 Handedness Right Intake Visit Reasons: PO 1 week RT IF amp rev 12/14/24 AR Intake Note: Davion is a 24 year old right hand dominant male who presents today post operatively s/p right index finger revision amputation, right index finger I&D of open fracture of distal phalanx and right index finger excision of germinal and sterile nail matrices, w/ Dr Sherlyn Bonner DOS: 12/14/24. Patient reports he has mild pain that comes and goes. He has some tingling at the tip of his finger. He rates his pain 3 out of 10 on pain scale. Expresses feeling stiffness in his right index finger and assumes it's because he has not been bending it. Allergies No Known Allergies Allergy (Verified 12/23/24 11:15) HPI HPI PO 1 week RT IF amp rev 12/14/24 AR: Details: Davion is a 24 year old right hand dominant male who presents today post operatively s/p right index finger revision amputation, right index finger I&D of open fracture of distal phalanx and right index finger excision of germinal and sterile nail matrices, w/ Dr Sherlyn Bonner DOS: 12/14/24. Patient reports he has mild pain that comes and goes. He has some tingling at the tip of his f lynette. He rates his pain 3 out of 10 on pain scale. Expresses feeling stiffness in his right index finger and assumes it's because he has not been bending it. [facility] Medical History Eczema Surgical History (Updated 12/14/24 @ 07:40 by Ondina Mueller MD) H/O wisdom tooth extraction Social History (Updated 12/23/24 @ 11:16 by PA Hair) Are you a primary senior care assistant to a significant other at home: No Do you presently have visiting nurse or other home services: No Patient Tobacco Use Status: Current everyday Tobacco user Tobacco use type: Smokeless Tobacco Current occupational status: employed Current occupation: right hand dominant Review of Systems Const All systems reviewed & are unremarkable except as noted in HPI and below Physical Exam Vital Signs: BMI result Body Mass Index 27.3 Extrem Other: Patient is alert, oriented, and in no acute distress. Neuro: Normal sensation of the tips of all other digits of the right hand at this time Vascular: Cap refill brisk Patient is able to make a closed fist and extend the 2nd through 5th digits of the right hand without difficulty Skin: Traumatic amputation status post amputation revision just distal to the DIP joint of the right index finger Incision site well-approximated Sutures in place No active bleeding at this time No drainage or other evidence of infection General: No ecchymosis, erythema, or evidence of infection. Psych: Appears grossly normal Affect normal Attitude cooperative Assessment & Plan Assessment & Plan (1) Traumatic amputation of tip of right index finger: Code(s): S68.110A - Complete traumatic metacarpophalangeal amputation of right index finger, initial encounter Category: Medical Plan 1. Traumatic partial amputation of the right index finger Status post amp revision Date of injury 12/09/2024 DOS 12/14/2024 Patient appears to be recovering well postoperatively Patient is educated about the typical recovery course At this time, patient was informed he should continue to keep the incision sites clean and dry, but he can change the dressings at home every 2-3 days Patient was educated that sutures will remain in until 3 weeks postoperatively New dressing applied in the office today Patient will follow-up in 1 week with repeat x-rays for reassessment, sooner with any acute concerns Coding Level of Care Code Global (08450) Diagnoses Traumatic amputation of tip of right index finger S68.110A
[2024-12-23 11:15] VITALS: BMI 27.3
--- OUTSIDE RECORDS SUMMARY | 2024-12-23 13:28 | XMS_ITS | Continuity of Care Document ---
Author Organization Sathya Pollard [facility] Address [address] [place] [address] Phone Care Team Providers Care Components Engineer Name Role Phone Thania BILLIE Tasia Unavailable [...] Copied on Encounter OFFICE/OUTPA TIENT VISIT, EST [facility], [address] [facility] [address], [place], [id number], [place] tel:[phone] [facility] stomach pain (chief complaint) Rib pain 3 Schierberl Tasia. [address], [place], [id number], [place]. tel:[phone] [facility], [address] [place] [address] [address], [place], [id number], [place] tel:[phone] [facility] No Information 1 Alejandro Ha. [address] [place], [place], [id number]. tel:[phone] PREV VISIT, EST, AGE 18-39 [facility], [address] [facility] [address], [place], [place], [id number], [place] tel:[phone] [facility] APE. (chief complaint) Encounter for general adult medical examination without abnormal findingsBody mass index [BMI] pediatric, 85th percentile to less than 95th percentile for age 1 Sarah Osorio. [address], [place], [id number], [place]. tel:[phone] [facility], [address] [place] [address] ng [address], [place], [place], [id number], [place] tel:[phone] [facility] Patient left without being seen 1 Sarah Osorio. [address], [place], [id number], [place]. tel:[phone] [facility], [address] [place] [address] [address], [place], [id number], [place] tel:[phone] Tele [facility] No Information Cesar-0 0 Viki Lara. [address] [place], [place], [id number]. 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 . Consulting Provider: Carmen Bella, [address] [place], [address]. tel:[phone] PREV VISIT, EST, AGE 18-39 [facility], [address] [place] [address] [address], [place], [place], [id number], [place] tel:[phone] [facility] Well child (chief complaint) Eczema, unspecified typeEncntr for general adult medical exam w/o abnormal findings 9 Sarah Osorio. [address], [place], [id number], [place]. tel:[phone] OFFICE/OUTPA TIENT VISIT, EST [facility], [address], [place], [place], [id number], [place] tel:[phone] [facility] nail problem (chief complaint) Ingrown toenail of right foot with infection 9 Yvonne Antonio. [address] [place] [address], [id number]. tel:[phone] [facility], [address], [place], [place], [id number], [place] tel:[phone] [facility] ingrown toenail (chief complaint) Patient left without being seen 9 Yvonne Alvarez. [address], [place], [id number]. tel:[phone] OFFICE/OUTPA TIENT VISIT, EST [facility], [address], [place], [id number], [place] tel:[phone] [facility] R great toenail ingrown (chief complaint) eczema flare (chief complaint) Ingrown toenail of right foot with infectionEcze ma, unspecified type 9 Viki Lara. [address] [place] [address], [id number]. tel:[phone] OFFICE/OUTPA TIENT VISIT, EST [facility], [address] [facility] [address], [place], [place], [id number], [place] tel:[phone] [facility] rash. (chief complaint) Eczema, unspecified type 9 Rosaline Welsh. [address] [place] [address], [id number], [place]. tel:[phone] PREV VISIT, EST, AGE 12-17 [facility], [address], [place], [place], [id number], [place] tel:[phone] [facility] Well Child (chief complaint) Encntr for routine child health exam w/o abnormal findings 8 No Information PREV VISIT, EST, AGE 12-17 [facility], [address] [facility] [facility] [address], [place], [place], [id number], [place] tel:[phone] [facility] Well Child (chief complaint) Encounter for routine child health examination with abnormal findingsEczem a, unspecified type 6 No Information OFFICE/OUTPA TIENT VISIT, EST [facility], [address] [facility] [address], [place], [place], [id number], [place] tel:[phone] [facility] Skin sx (chief complaint) Eczema, unspecified type 6 No Information PREV VISIT, EST, AGE 12-17 [facility], [address] [facility] [address], [place], [place], [id number], [place] tel:[phone] [facility] Well child (chief complaint) Eczema (chief complaint) Encounter for routine child health examination with abnormal findingsEczem a, unspecified eczema 5 No Information OFFICE/OUTPA TIENT VISIT, EST [facility], [address] [facility] [facility] [address] [facility] [address], [place], [place], [id number], [place] tel:[phone] [facility] fall on l. knee,seen in ER (chief complaint) Contusion of left knee 5 No Information PREV VISIT, EST, AGE 12-17 [facility], [address] [facility] [facility] [address] [facility] [address], [place], [place], [id number], [place] tel:[phone] [facility] Well Child (chief complaint) [facility]IN CHILD HEALTH EXAM 4 No Information OFFICE/OUTPA TIENT VISIT, EST [facility], [address] [facility] [facility] [address], [place], [place], [id number], [place] tel:[phone] [facility] eczema (chief complaint) Contact dermatitis and other eczema, unspecified causeOnychomy cosis - 4 No Information OFFICE/OUTPA TIENT VISIT, EST [facility], [address] [facility] [facility] [address] [facility] [address], [place], [place], [id number], [place] tel:[phone] [facility] fever (chief complaint) diarrhea (chief complaint) Abdominal pain 3 No Information PREV VISIT, EST, AGE 5-11 [facility], [address], [place], [place], [id number], [place] tel:[phone] [facility] Well child - 11 Years (chief complaint) Routine infant or child health checkContact dermatitis and other eczema, unspecified causeRoutine infant or child health check 3 No Information OFFICE/OUTPA TIENT VISIT, EST [facility], [address] [facility] [address], [place], [place], [id number], [place] tel:[phone] [facility] skin itching (chief complaint) EczemaNeed for prophylactic vaccination and inoculation against other specified single bacterial diseaseNEED FOR PROPHYLACTIC VACCINATION WITH COMBINED DIPHTHERIA-TE TANUS-PERTUSS IS (DTP) (DTAP) VACCINE - 3 No Information FAMILY PSYTX W/PATIENT ciro [facility], [address], [place], [place], [id number], [place] tel:[phone] [facility] Persistent adjustment disorder 2 No Information PREV VISIT, EST, AGE 5-11 ciro [facility], [address], [place], [place], [id number], [place] tel:[phone] [facility] Well child - 10 Years (chief complaint) Routine or child health checkRoutine infant or child health check 0- 2 No Information OFFICE/OUTPA TIENT VISIT, EST crio [facility], [address], [place], [place], [id number], [place] tel:[phone] [facility] neck pain (chief complaint) Cervicalgia 2 No Information [facility], [address], [place], [place], [id number], [place] tel:[phone] [facility] No Information 1 No Information ciro [facility], [address], [place], [place], [id number], [place] tel:[phone] [facility] No Information 0 No Information [facility], [address], [place], [place], [id number], [place] tel:[phone] [facility] No Information 9 Viki Lara. [address] [place] [address], [id number]. tel:[phone] [facility], [address], [place], [place], [id number], tel:[phone] [facility] No Information Dec- No Information Family [...] Insurance type Covered republican ID Authoriza tion(s) [address] [id number] [address] [id number] [facility] [id number] [facility] [id number] Social History Type Description Quantity Date Captured [...] back which helped a lot. Works at [employer], does a lot of heavy lifting. No [...] back which helped a lot. Works at [employer], does a lot of heavy lifting. No recent gym/strenous exercise.ROS neg for CP, reflux, cough, fevers, recent URI, n/vnonsmokerneg fhx sudden cardiac or stomach dz APE. 19yo M here for CRISSY w/mom and brotherLast visit w/me in [id number]/[id number]) Eczema.Was recently referred to derm but no-showed appt on `06/30/19PSH: noneAllergies: NKDA/NKFAMeds: steroid creamSH: lives w/mom, dad, and brother. no smokers, no petsSchool - [employer] for general studies - was thinking about zoology but unsure. work - [employer] - online shopping, 30hrs/wk; not [...] and brother. no smokers, no petsschool - [employer], senior. work - [employer]. exercises - 45 minutes every day. is [...]
== END 2024-12-23 11:40 | disposition home or self-care (01) ==
LOC: HO.HOS 11:09
DX: S68.110A Complete traumatic metacarpophalangeal amputation of right index finger, initial encounter (principal)
CPT/HCPCS: 99024

== ENCOUNTER → 2024-12-23 11:08 | Outpatient (BNVA) | payer SELFPAY | DX: M79.644 Pain in right finger(s) (principal); Z47.81 Encounter for orthopedic aftercare following surgical amputation; Z89.021 Acquired absence of right finger(s) | CPT/HCPCS: 99212 ==

== ENCOUNTER 2024-12-30 10:12 | Outpatient (AMB) | payer SELFPAY ==
[2024-12-30 10:14] VITALS: BMI 27.3
--- NOTE | 2024-12-30 10:14 | A.OFFVIS_ITS ---
Vital Signs 12/30/24 10:14 Height 5 ft 10 in Weight 190 lb BMI 27.3 Intake Visit Reasons: PO RT IF amp rev 12/14/24 AR Intake Note: Davion is a 24 year old right hand dominant male who presents today post operatively s/p right index finger revision amputation, right index finger I&D of open fracture of distal phalanx and right index finger excision of germinal and sterile nail matrices, w/ Dr Sherlyn Bonner DOS: 12/14/24. States he has very little pain and continues to do change his dressing every other day. Allergies No Known Allergies Allergy (Verified 12/30/24 10:17) HPI HPI PO RT IF amp rev 12/14/24 AR: Details: Davion is a 24 year old right hand dominant male who presents today post operatively s/p right index finger revision amputation, right index finger I&D of open fracture of distal phalanx and right index finger excision of germinal and sterile nail matrices, w/ Dr Sherlyn Bonner DOS: 12/14/24. States he has very little pain and continues to do change his dressing every other day. [facility] Medical History Eczema Surgical History H/O wisdom tooth extraction Social History Are you a primary acute care certified nursing assistant to a significant other at home: No Do you presently have visiting nurse or other home services: No Patient Tobacco Use Status: Current everyday Tobacco user Tobacco use type: Smokeless Tobacco Current occupational status: employed Current occupation: right hand dominant Review of Systems Const All systems reviewed & are unremarkable except as noted in HPI and below Physical Exam Vital Signs: BMI result Body Mass Index 27.3 Extrem Other: Patient is alert, oriented, and in no acute distress. Neuro: Normal sensation of the tips of all other digits of the right hand at this time Vascular: Cap refill brisk Patient is able to make a closed fist and extend the 2nd through 5th digits of the right hand without difficulty Skin: Traumatic amputation status post amputation revision just distal to the DIP joint of the right index finger Incision site well-approximated Sutures in place No active bleeding at this time No drainage or other evidence of infection General: No ecchymosis, erythema, or evidence of infection. Psych: Appears grossly normal Affect normal Attitude cooperative Assessment & Plan Assessment & Plan (1) Traumatic amputation of tip of right index finger: Code(s): S68.110A - Complete traumatic metacarpophalangeal amputation of right index finger, initial encounter Category: Medical Plan 1. Traumatic partial amputation of the right index finger Status post amp revision Date of injury 12/09/2024 DOS 12/14/2024 Patient appears to be recovering well postoperatively Patient is educated about the typical recovery course At this time, patient was informed he should continue to keep the incision sites clean and dry, but he can change the dressings at home every 2-3 days Patient was educated that sutures will remain in until 3 weeks postoperatively New dressing applied in the office today Augmentin prescribed due to patient reported history of yellowish discharge out of an abundance of caution Patient will follow-up in 1 week with repeat x-rays for reassessment, sooner with any acute concerns Medications: New amoxicillin-pot clavulanate 875-125 mg 1 tab PO BID 14 tabs 0RF 7 days Coding Level of Care Code Global (29567) Diagnoses Traumatic amputation of tip of right index finger S68.110A
--- OUTSIDE RECORDS SUMMARY | 2024-12-30 11:52 | XMS_ITS | Continuity of Care Document ---
Author Name [facility] Organization [facility] Care Team Providers Care Assistant Restaurant General Manager Name Role Phone [facility] Unavailable Unavailable Medications Combined list of outpatient [...] total refill(s ), Arley khan, Pharmacy : [facility] Topica l (on the skin) Ordered 2 2021 42.5 1511C-R melvin [facility] ibuprofen 800 mg oral tablet ibuprofe n [...] Site Reaction Lot Number CVX Code Drug Manager Managing Status Comments Source hepatitis B adult vaccine 2020 zzPankaj ht Arm [id number] 43 GlaxoSmithKli ne complet ed hepatitis B adult vaccine 09/05/21 Given Ambulat ory Pharmac y varicella virus vaccine 2020 zzRig ht Arm [id number] 21 Merck [employer] Company Inc complet ed varicella virus vaccine 09/05/21 Given Ambulat ory Pharmac y measles/mumps /rubella virus vaccine 2020 zzLef t Arm [id number] 03 Merck [employer] Company Inc complet ed measles/m umps/rube lla virus vaccine 09/05/21 Given Ambulat ory Pharmac y COVID Vaccine Pfizer 2020 zzLef t Arm [id number] PFIZER complet ed COVID Vaccine Pfizer 09/05/21 Given Ambulat ory Pharmac y meningococcal A,C,Y,W-135 (MCV4P) 2020 zzRig ht Arm [id number] sanofi pasteur complet ed meningoco ccal A,C,Y,W-1 35 (MCV4P) 08/07/21 Given Ambulat ory Pharmac y tetanus, diphtheria, acellular pertu is 2020 zzLef t Arm [id number] GlaxoSmithKli ne complet ed tetanus, diphtheri a, acellular pertussis 08/07/21 Given Ambulat ory Pharmac y adenovirus vaccine, live 2020 [id number] Unknown complet ed adenoviru s vaccine, live 08/07/21 Given Ambulat ory Pharmac y tuberculin purified protein derivative 2020 zzLef t Arm [id number] 96 sanofi pasteur complet ed tuberculi n purified protein derivativ e 08/07/21 Given Ambulat ory Pharmac y influenza, injectable, quadrivalent- pf 2020 zzLef t Arm [id number] 150 Seqirus complet ed influenza , injectabl e, quadrival ent-pf 08/07/21 Given Ambulat ory Pharmac y COVID Vaccine Pfizer 2020 zzLef t Arm [id number] 208 PFIZER complet ed COVID Vaccine Pfizer 08/07/21 Given Ambulat ory Pharmac y hepatitis B adult vaccine 2020 zzRig ht Arm [id number] 43 GlaxoSmithKli ne complet ed hepatitis B adult vaccine 08/07/21 Given Ambulat ory Pharmac y varicella virus vaccine 2020 zzRig ht Arm [id number] 21 Merck & Company Inc complet ed varicella virus vaccine 08/07/21 Given Ambulat ory Pharmac y measles/mumps /rubella virus vaccine 2020 zzLef t Arm [id number] 03 Merck & Company Inc complet ed measles/m umps/rube lla virus vaccine 08/07/21 Given Ambulat ory Pharmac y poliovirus vaccine, inactivated 2020 zzRig ht Arm [id number] complet ed polioviru s vaccine, inactivat ed 08/07/21 Given Ambulat ory Pharmac y Vital Signs Combined list of inpatient and outpatient Vital Signs from Department of Defense and Veterans Affairs, ranging from 12 months to all on record, depending upon the facility. Vital Sign Value Date Comments Source BP Site Left arm 01/30/2022 13:15:[address] [place] [address] Temperature Temporal Artery 36.5 Marily 01/30/2022 13:15:[address] [place] [address] Systolic Blood Pressure 126 mm[Hg] 01/31/20 13:15:[address] [place] [address] Diastolic Blood Pressure 75 mm[Hg] 022 13:15:[address] [place] [address] Peripheral Pulse Rate 98 bpm 01/30/2022 13:15:[address] [place] [address] Blood Pressure Manual Automatic 01/30/2022 13:15:[address] [place] [address] Mean Arterial Pressure, Calc 92 mm[Hg] 01/30/2022 13:15:[address] [place] [address] Respiratory Rate 14 br/min 01/30/2022 13:15:[address] [place] [address] Peripheral Pulse Rate 74 bpm 12/15/2021 15:01:[address] [place] [address] Systolic Blood Pressure 109 mm[Hg] 12/16/19 22 15:01:[address] [place] [address] Diastolic Blood Pressure 54 mm[Hg] 022 15:01:[address] [place] [address] Respiratory Rate 16 br/min 12/15/2021 15:01:[address] [place] [address] Mean Arterial Pressure, Calc 72 mm[Hg] 12/15/2021 15:01:[address] [place] [address] Temperature Temporal Artery 36.5 Marily 12/15/2021 15:01:[address] [place] [address] Blood Pressure Manual Automatic 12/15/2021 15:01:[address] [place] [address] [facility] Procedures Combined list of: 1) Procedures from [...] Date Comment Sourc e Sex Representation Male (finding) 12/07/2021 Un known Organization Tobacco Never-cigarette user Cigarette use:. Never-other [...] FULTON, JERRELL Jeffers Date: 01/30/22 1.?EXAM, OCCUPATIONAL, DETENTION OR SEPARATION FROM bSafe, LONG ?No current health conditions or medication [...] refill(s), Maintenance, 1 appl(s) Topical Daily, Pharmacy: [facility] [Not filled] ? 12/30/2024 151-Yogesh [facility] Functional Status Combined list of recent functional and cognitive assessments recorded at Department of Defense and Veterans Affairs (VA).VA Functional [place] Measurement (FIM) Scale: 1 = Total Assistance (Subject = 0% +), 2 = Maximal Assistance (Subject = 25% +), 3 = Moderate Assistance (Subject = 50% +), 4 = Minimal Assistance (Subject = 75% +), 5 = Supervision, 6 = Modified [place] (Device), 7 = Complete [place] (Timely, Safely). Assessment Date/Time Source Assessment Type Assessment Skill Assessment Score Assessment Details No data available for this section
--- OUTSIDE RECORDS SUMMARY | 2024-12-30 11:52 | XMS_ITS | Continuity of Care Document ---
Author Organization Sathya Pollard [facility] Address [address] [place] [address] Phone Care Team Providers Care Tabulating Clerk Name Role Phone Thania BILLIE Tasia Unavailable [...] VISIT, EST [facility], [address], [place], [id number], [place] tel:[phone] [facility] stomach pain (chief complaint) Rib pain 3 Schierberl Tasia. [address] [place], [place], [id number], [place]. tel:[phone] [facility], [address] [place] [address] ng [address], [place], [id number], [place] tel:[phone] [facility] No Information 1 Alejandro Ha. [address] [place], [place], [id number]. tel:[phone] PREV VISIT, EST, AGE 18-39 [facility], [address], [place], [place], [id number], [place] tel:[phone] [facility] APE. (chief complaint) Encounter for general adult medical examination without abnormal findingsBody mass index [BMI] pediatric, 85th percentile to less than 95th percentile for age 1 Sarah Osorio. [address] [place], [place], [id number], [place]. tel:[phone] [facility], [address] [place] [address] ng [address], [place], [place], [id number], [place] tel:[phone] [facility] Patient left without being seen 1 Sarah Osorio. [address] [place], [place], [id number], [place]. tel:[phone] [facility], [address] [place] [address] ng [address], [place], [id number], [place] tel:[phone] Tele [facility] No Information Cesar-0 0 Viki Jane. [address] [place], [place], [id number], [place]. 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 . Consulting Provider: Carmen Bella, [address] [place], [address]. tel:[phone] PREV VISIT, EST, AGE 18-39 [facility], [address] [place] [address] 2,[address], [place], [place], [id number], [place] tel:[phone] [facility] Well child (chief complaint) Eczema, unspecified typeEncntr for general adult medical exam w/o abnormal findings 9 Sarah Osoroi. [address] [place], [place], [id number], [place]. tel:[phone] OFFICE/OUTPA TIENT VISIT, EST [facility], [address], [place], [place], [id number], [place] tel:[phone] [facility] nail problem (chief complaint) Ingrown toenail of right foot with infection 9 Yvonne Alvarez. [address] [place] [address], [id number]. tel:[phone] [facility], [address], [place], [place], [id number], [place] tel:[phone] [facility] ingrown toenail (chief complaint) Patient left without being seen 9 Yvonne Alvarez. [address] [place], [place], [id number]. tel:[phone] OFFICE/OUTPA TIENT VISIT, EST [facility], [address], [place], [place], [id number], [place] tel:[phone] [facility] R great toenail ingrown (chief complaint) eczema flare (chief complaint) Ingrown toenail of right foot with infectionEcze ma, unspecified type 9 Viki Lara. [address] [place] [address], [id number], [place]. tel:[phone] OFFICE/OUTPA TIENT VISIT, EST [facility], [address], [place], [place], [id number], [place] tel:[phone] [facility] rash. (chief complaint) Eczema, unspecified type 9 Rosaline Welsh. [address] [place] [address], [id number], [place]. tel:[phone] PREV VISIT, EST, AGE 12-17 [facility], [address], [place], [place], [id number], [place] tel:[phone] [facility] Well Child (chief complaint) Encntr for routine child health exam w/o abnormal findings 8 No Information PREV VISIT, EST, AGE 12-17 [facility], [address], [place], [place], [id number], [place] tel:[phone] [facility] Well Child (chief complaint) Encounter for routine child health examination with abnormal findingsEczem a, unspecified type 6 No Information OFFICE/OUTPA TIENT VISIT, EST [facility], [address], [place], [place], [id number], [place] tel:[phone] [facility] Skin sx (chief complaint) Eczema, unspecified type 6 No Information PREV VISIT, EST, AGE 12-17 [facility], [address], [place], [place], [id number], [place] tel:[phone] [facility] Well child (chief complaint) Eczema (chief complaint) Encounter for routine child health examination with abnormal findingsEczem a, unspecified eczema - 5 No Information OFFICE/OUTPA TIENT VISIT, EST [facility], [address], [place], [place], [id number], [place] tel:[phone] [facility] fall on l. knee,seen in ER (chief complaint) Contusion of left knee 5 No Information PREV VISIT, EST, AGE 12-17 [facility], [address], [place], [place], [id number], [place] tel:[phone] [facility] Well Child (chief complaint) ROUTIN CHILD HEALTH EXAM 4 No Information OFFICE/OUTPA TIENT VISIT, EST [facility], [address], [place], [place], [id number], [place] tel:[phone] [facility] eczema (chief complaint) Contact dermatitis and other eczema, unspecified causeOnychomy cosis - 4 No Information OFFICE/OUTPA TIENT VISIT, EST [facility], [address], [place], [place], [id number], [place] tel:[phone] [facility] fever (chief complaint) diarrhea (chief complaint) Abdominal pain 3 No Information PREV VISIT, EST, AGE 5-11 [facility], [address], [place], [place], [id number], [place] tel:[phone] [facility] Well child - 11 Years (chief complaint) Routine or child health checkContact dermatitis and other eczema, unspecified causeRoutine infant or child health check 3 No Information OFFICE/OUTPA TIENT VISIT, EST [facility], [address], [place], [place], [id number], [place] tel:[phone] [facility] skin itching (chief complaint) EczemaNeed for prophylactic vaccination and inoculation against other specified single bacterial diseaseNEED FOR PROPHYLACTIC VACCINATION WITH COMBINED DIPHTHERIA-TE TANUS-PERTUSS IS (DTP) (DTAP) VACCINE 3 No Information FAMILY PSYTX W/PATIENT ciro [facility], [address], [place], [place], [id number], [place] tel:[phone] [facility] Persistent adjustment disorder 2 No Information PREV VISIT, EST, AGE 5-11 [facility], [address], [place], [place], [id number], [place] tel:[phone] [facility] Well child - 10 Years (chief complaint) Routine or child health checkRoutine or child health check 2 No Information OFFICE/OUTPA TIENT VISIT, EST ciro [facility], [address], [place], [place], [id number], [place] tel:[phone] [facility] neck pain (chief complaint) Cervicalgia 2 No Information [facility], [address], [place], [place], [id number], [place] tel:[phone] [facility] No Information 1 No Information [facility], [address], [place], [place], [id number], [place] tel:[phone] [facility] No Information 0 No Information [facility], [address], [place], [place], [id number], [place] tel:[phone] [facility] No Information 9 Viki Lara. [address] [place] [address], [id number], . tel:[phone] [facility], [address], [place], [place], [id number], tel:[phone] [facility] No Information Dec- No Information [...] Record Payers Payer name Insurance type Covered democrat ID Authoriza tion(s) [address] [id number] [address] [id number] [facility] [id number] [facility] [id number] Social History Type Description Quantity Date Captured [...] back which helped a lot. Works at [employer], does a lot of heavy lifting. No [...] Diabetes Screening. Due on due Goal HPV (3rd). Due [...] Influenza vaccine. Due on due Goal HPV (2nd). Due [...] back which helped a lot. Works at [employer], does a lot of heavy lifting. No recent gym/strenous exercise.ROS neg for CP, reflux, cough, fevers, recent URI, n/vnonsmokerneg fhx sudden cardiac or stomach dz APE. 19yo M here for APE w/mom and brotherLast visit w/me in [id number]) Eczema.Was recently referred to derm but no-showed appt on `06/30/19PSH: noneAllergies: NKDA/NKFAMeds: steroid creamSH: lives w/mom, dad, and brother. no smokers, no petsSchool - [employer] for general studies - was thinking about zoology but unsure. 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 no smokers, no petsschool - [employer], senior. work - [employer]. exercises - 45 minutes every day. is planning on doing basketball and baseballPlans to go to [facility] - zoologistDiet: no vegetables or fruits. eats [...] ingrown eczema flare rash. CC: rashLang: En abimael for pt, Span phone inter for momHPI: [...] t No Information Instructions Date Instruction Additional Donellr karin Dietary management e ducation, guidance, and counseling Age appropriate anti cipatory guidance discussed (15-21 years) Related to Encntr for routine child health exam w/o abnormal findings Age appropriate diet discussed (-21 years) Related to Encntr for routine child health exam w/o abnormal findings Oral Health Discussed ( yea rs) Related to Encntr for routine child health exam w/o abnormal findings Age appropriate anti cipatory guidance discussed (-21 [...] w/o abnormal findings Age appropriate diet discussed (-14 years) Related to Encntr for routine child [...]
== END 2024-12-30 10:30 | disposition home or self-care (01) ==
LOC: HO.HOS 10:13
DX: S68.110A Complete traumatic metacarpophalangeal amputation of right index finger, initial encounter (principal)
CPT/HCPCS: 99024

== ENCOUNTER → 2024-12-30 10:12 | Outpatient (BNVA) | payer SELFPAY | DX: S68.110D Complete traumatic metacarpophalangeal amputation of right index finger, subsequent encounter (principal) | CPT/HCPCS: 99212 ==

== ENCOUNTER 2025-01-06 | Outpatient (REF) | payer OTHER, SELFPAY ==
--- OUTSIDE RECORDS SUMMARY | 2023-05-31 09:40 | XMS_ITS | Continuity of Care Document ---
Author Organization Sathya Pollard 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 Role Phone Thania BILLIE Tasia Unavailable Unavailabl e Allergies, Adverse Reactions, Alerts Substance Reaction Status Criticality No Known Allergies Active No Inform ation Medications Medication Instructions Dosage Effective Dates (start - stop) Status Comments Naprosyn 500 mg tablet take 1 tablet by oral route 2 times every day with food 500 MG - Active TRIAMCINOLONE 0.025% OINT PLEASE SEE ATTACHED FOR DETAILED DIRECTIONS - No Longer Active Procedures Procedure Date OFFICE/OUTPATIENT VISIT, EST PREV VISIT, EST, AGE 18-39 Left W/O Being Seen IMMUNIZATION ADMIN, EACH ADD HEP A VACC, PED/ADOL, 2 DOSE IMMUNIZATION ADMIN, EACH ADD HPV Vaccine Type 6,11,16,18,31,33,45,52, 58 State Supplied IMMUNIZATION ADMIN Menigoccal B (MEN B) State Supplied DEVELOPMENTAL TEST, WINTERS PREV VISIT, EST, AGE 18-39 OFFICE/OUTPATIENT VISIT, EST OFFICE/OUTPATIENT VISIT, EST REMOVAL OF NAIL PLATE Surgical trays Left W/O Being Seen OFFICE/OUTPATIENT VISIT, EST OFFICE/OUTPATIENT VISIT, EST IMMUNIZATION ADMIN HEP A VACC, PED/ADOL, 2 DOSE IMMUNIZATION ADMIN, EACH ADD HPV Vaccine Type 6,11,16,18,31,33,45,52, 58 State Supplied IMMUNIZATION ADMIN, EACH ADD MENINGOCOCCAL VACCINE, IM IMMUNIZATION ADMIN, EACH ADD Menigoccal B (MEN B) State Supplied DEVELOPMENTAL TEST, WINTERS PREV VISIT, EST, AGE 12-17 DEVELOPMENTAL TEST, WINTERS PREV VISIT, EST, AGE 12-17 OFFICE/OUTPATIENT VISIT, EST DEVELOPMENTAL TEST, WINTERS PREV VISIT, EST, AGE 12-17 OFFICE/OUTPATIENT VISIT, EST OFFICE/OUTPATIENT VISIT, EST DEVELOPMENTAL TEST, WINTERS PREV VISIT, EST, AGE 12-17 OFFICE/OUTPATIENT VISIT, EST OFFICE/OUTPATIENT VISIT, EST DEVELOPMENTAL TEST, WINTERS PREV VISIT, EST, AGE 5-11 IMMUNIZATION ADMIN MENINGOCOCCAL VACCINE, IM OFFICE/OUTPATIENT VISIT, EST IMMUNIZATION ADMIN, EACH ADD TDAP VACCINE >7 IM FAMILY PSYTX W/PATIENT DEVELOPMENTAL TEST, WINTERS PREV VISIT, EST, AGE 5-11 OFFICE/OUTPATIENT VISIT, EST DEVELOPMENTAL TEST, WINTERS DEVELOPMENTAL TEST, WINTERS MEASURE BLOOD OXYGEN LEVEL DEVELOPMENTAL TEST, WINTERS Advance Directives Directive Yes / No Effective Date File Name No Information Encounters Encounter Description Practice Location Reason(s) For Visit Diagnoses Date Provider Providers Copied on Encounter OFFICE/OUTPA TIENT VISIT, EST [facility], [address] [facility] [address], [place], [id number], [place] tel:[phone] [facility] stomach pain (chief complaint) Rib pain 3 Schierberl Tasia. [address] [place], [place], [id number], [place]. tel:[phone] [facility], [address] [place] [address] ng [address], [place], [id number], [place] tel:[phone] [facility] No Information 1 Alejandro Ha. [address] [place], [place], [id number]. tel:[phone] PREV VISIT, EST, AGE 18-39 [facility], [address] [facility] [address], [place], [place], [id number], [place] tel:[phone] [facility] APE. (chief complaint) Encounter for general adult medical examination without abnormal findingsBody mass index [BMI] pediatric, 85th percentile to less than 95th percentile for age 1 Sarah Osorio. [address] [place], [place], [id number], [place]. tel:[phone] [facility], [address] [place], [place] [address] [address], [place], [place], [id number], [place] tel:[phone] [facility] Patient left without being seen 1 Sarah Osorio. [address] [place], [place], [id number], [place]. tel:[phone] [facility], [address] [place] [address] [address], [place], [id number], [place] tel:[phone] Tele [facility] No Information 0 Viki Markzabeth. [address] [place], [place], [id number], [place]. 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 . PREV VISIT, EST, AGE 18-39 [facility], [address] [facility] [address], [place], [place], [id number], [place] tel:[phone] [facility] Well child (chief complaint) Eczema, unspecified typeEncntr for general adult medical exam w/o abnormal findings 9 Sarah Osorio. [address] [place] [address], [id number], [place]. tel:[phone] OFFICE/OUTPA TIENT VISIT, EST [facility], [address] [facility] [address], [place], [place], [id number], [place] tel:[phone] [facility] nail problem (chief complaint) Ingrown toenail of right foot with infection 9 Yvonne Antonio. [address] [place] [address], [id number]. tel:[phone] [facility], [address] [facility] [address], [place], [place], [id number], [place] tel:[phone] [facility] ingrown toenail (chief complaint) Patient left without being seen 9 Yvonne Alvarez. [address] [place] [address], [id number]. tel:[phone] OFFICE/OUTPA TIENT VISIT, EST [facility], [address] [facility] [address], [place], [place], [id number], [place] tel:[phone] [facility] R great toenail ingrown (chief complaint) eczema flare (chief complaint) Ingrown toenail of right foot with infectionEcze ma, unspecified type 9 Viki Lara. [address] [place] [address], [id number], [place]. tel:[phone] OFFICE/OUTPA TIENT VISIT, EST [facility], [address] [facility] [address], [place], [place], [id number], [place] tel:[phone] [facility] rash. (chief complaint) Eczema, unspecified type 9 Rosaline Welsh. [address] [place] [address], [id number], [place]. tel:[phone] PREV VISIT, EST, AGE 12-17 [facility], [address] [place] [address] 2,[address], [place], [place], [id number], [place] tel:[phone] [facility] Well Child (chief complaint) Encntr for routine child health exam w/o abnormal findings 8 No Information PREV VISIT, EST, AGE 12-17 [facility], [address] [place] [address] ng [address], [place], [place], [id number], [place] tel:[phone] [facility] Well Child (chief complaint) Encounter for routine child health examination with abnormal findingsEczem a, unspecified type 6 No Information OFFICE/OUTPA TIENT VISIT, EST [facility], [address] [facility] [address], [place], [place], [id number], [place] tel:[phone] [facility] Skin sx (chief complaint) Eczema, unspecified type 6 No Information PREV VISIT, EST, AGE 12-17 [facility], [address] [facility] [address], [place], [place], [id number], [place] tel:[phone] [facility] Well child (chief complaint) Eczema (chief complaint) Encounter for routine child health examination with abnormal findingsEczem a, unspecified eczema 5 No Information OFFICE/OUTPA TIENT VISIT, EST [facility], [address] [facility] [address], [place], [place], [id number], [place] tel:[phone] [facility] fall on l. knee,seen in ER (chief complaint) Contusion of left knee 5 No Information PREV VISIT, EST, AGE 12-17 [facility], [address] [facility] [address], [place], [place], [id number], [place] tel:[phone] [facility] Well Child (chief complaint) ROUTIN CHILD HEALTH EXAM 4 No Information OFFICE/OUTPA TIENT VISIT, EST [facility], [address] [facility] [address], [place], [place], [id number], [place] tel:[phone] [facility] eczema (chief complaint) Contact dermatitis and other eczema, unspecified causeOnychomy cosis 4 No Information OFFICE/OUTPA TIENT VISIT, EST [facility], [address] [facility] [address], [place], [place], [id number], [place] tel:[phone] [facility] fever (chief complaint) diarrhea (chief complaint) Abdominal pain 3 No Information PREV VISIT, EST, AGE 5-11 [facility], [address] [facility] [address], [place], [place], [id number], [place] tel:[phone] [facility] Well child - 11 Years (chief complaint) Routine infant or child health checkContact dermatitis and other eczema, unspecified causeRoutine infant or child health check 3 No Information OFFICE/OUTPA TIENT VISIT, EST [facility], [address] [facility] [address], [place], [place], [id number], [place] tel:[phone] [facility] skin itching (chief complaint) EczemaNeed for prophylactic vaccination and inoculation against other specified single bacterial diseaseNEED FOR PROPHYLACTIC VACCINATION WITH COMBINED DIPHTHERIA-TE TANUS-PERTUSS IS (DTP) (DTAP) VACCINE 3 No Information FAMILY PSYTX W/PATIENT [facility], [address] [facility] [address], [place], [place], [id number], [place] tel:[phone] [facility] Persistent adjustment disorder 2 No Information PREV VISIT, EST, AGE 5-11 [facility], [address] [facility] [address], [place], [place], [id number], [place] tel:[phone] [facility] Well child - 10 Years (chief complaint) Routine infant or child health checkRoutine infant or child health check 2 No Information OFFICE/OUTPA TIENT VISIT, EST [facility], [address] [facility] [address], [place], [place], [id number], [place] tel:[phone] [facility] neck pain (chief complaint) Cervicalgia 2 No Information [facility], [address] [facility] [address], [place], [place], [id number], [place] tel:[phone] [facility] No Information 1 No Information [facility], [address] [facility] [address], [place], [place], [id number], [place] tel:[phone] [facility] Information 0 No Information [facility], [address] [facility] [address], [place], [place], [id number], [place] tel:[phone] [facility] No Information 9 Viki Lara. [address] [place] [address], [place], [place], [id number], [place]. tel:[phone] [facility], [address] [facility] [address], [place], [place], [id number], [place] tel:[phone] [facility] No Information Apr-2 1-200 9 No Information Family History Family Member Type Diagnosis Age At Onset No Information Immunizations Vaccine Date Status Comments COVID-19 Moderna administered Source: Oth er Registry COVID-19 Moderna administered Source: Oth er Registry Hep A (ped/adol, 2 dose) administered Meaghan rce: New Immunization Record HPV (9-valent) administered Source: New I mmunization Record meningococcal B, OMV, 2 dose schedule administered Source: New Immuniza tion Record Hep A (ped/adol, 2 dose) administered Meaghan rce: New Immunization Record HPV (9-valent) administered Source: New I mmunization Record meningococcal MCV4P administered Source: New Immunization Record meningococcal B, OMV, 2 dose schedule administered Source: New Immuniza tion Record HPV (9-valent) refused Source: New I mmunization Record Influenza, injectable, quadrivalent, 3 years or older Fluzone Quad refused Source: New Immun ization Record Tdap administered Source: New Imm unization Record MCV4 (11-55 yrs) administered Source: New Immunization Record Varicella (Chicken Pox) administered Sour ce: New Immunization Record Influenza Vaccine administered Source: Ne w Immunization Record MMR unknown Source: Other R egistry Diph Tetanus ascell Pertussis administere d Source: New Immunization Record Polio (Injection) administered Source: Ne w Immunization Record Varicella (Chicken Pox) administered Sour ce: New Immunization Record Measles Mumps Rubella administered Source : New Immunization Record Influenza Vaccine administered Source: Ne w Immunization Record INFLUENZA VACCINE AGE 3 AND ABOVE administered Source: New Immuniza tion Record Diph Tetanus ascell Pertussis administere d Source: New Immunization Record Hemophilus Influenza B administered Sourc e: New Immunization Record MMR unknown Source: Other R egistry Measles Mumps Rubella administered Source : New Immunization Record Varicella (Chicken Pox) administered Sour ce: New Immunization Record HepB-Peds unknown Source: Other R egistry Polio (Injection) administered Source: Ne w Immunization Record Hepatitis B (a) CHILD administered Source : New Immunization Record Hemophilus Influenza B administered Sourc e: New Immunization Record Diph Tetanus ascell Pertussis administere d Source: New Immunization Record PREVNAR (PCV7) administered Source: New I mmunization Record PREVNAR (PCV7) administered Source: New I mmunization Record Hemophilus Influenza B administered Sourc e: New Immunization Record Diph Tetanus ascell Pertussis administere d Source: New Immunization Record Polio (Injection) administered Source: Ne w Immunization Record PREVNAR (PCV7) administered Source: New I mmunization Record Polio (Injection) administered Source: Ne w Immunization Record Hemophilus Influenza B administered Sourc e: New Immunization Record Diph Tetanus ascell Pertussis administere d Source: New Immunization Record HepB-Peds unknown Source: Other R egistry Hepatitis B (a) CHILD administered Source : New Immunization Record HepB-Peds unknown Source: Other R egistry Hepatitis B (a) CHILD administered Source : New Immunization Record Flu (split) (3 yrs or older) cancelled Source: New Immunization Record Payers Payer name Insurance type Covered republican ID Authoriza tion(s) [facility] C3 [facility] [id number] [address] [id number] [facility] [id number] [facility] [id number] Social History Type Description Quantity Date Captured Comments Alcohol Use Details Unknown Caffeine Use Details Unknown Tobacco Use Status No Information Smoking Status No Information Sex Male Vital Signs Date / Time: Height Weight BMI Pulse Rate Blood Pressure Temperature Respiratory Rate Body Surface Area Head Circumference Head Circ. Percentile Wt./Suresh. Percentile BMI percentile Pulse Ox Inhaled Ox 1:56 PM 69.50 in 90.991 kg (200.60 lbs) 29.2 0 kg/m eter (2) 76 /min 129/82 mm[Hg] 2.11 meter(2) 97 % 2:07 PM 97.50 F Chief Complaint And Reason For Visit From encounter dated '05/31/2023 13:40'. stomach pain (chief complaint). Description: CC: stomach painLang: Eng22 y/o M here for pain - clarifies the pain is located along left side of ribs/chest, not stomach. It's been 1 week of this - hard to breath it because he feels ache and sharp stabbing pain. Lasts a few seconds and resolves when he breaths out. If he has shallow breathing it's fine. Initially when he pushed on this area he could feel the pain, but that's improved. Overall getting significantly better. If he stretches too much or moves in one direction quickly he can feel it. Taking tylenol and put a pillow under his back which helped a lot. Works at [employer], does a lot of heavy lifting. No recent gym/strenous exercise.ROS neg for CP, reflux, cough, fevers, recent URI, n/vnonsmokerneg fhx sudden cardiac or stomach dz Reason For Referral Reason For Referral No Information Plan Of Treatment Date Type Action Status Goal HPV (1st) due Goal Td vaccine. Due on 23 due Goal APE. Due on due Goal Diabetes Screening. Due on due Goal Tdap. Due on due Goal HPV (2nd) due Goal Influenza vaccine. Due on due Goal HPV (3rd). Due on 8 due Goal Unhealthy drug use screening . Due on due Goal Document SOGI Information. D ue on due Goal Unhealthy drug use screening . Due on due Goal Fluoride varnish application . Due on due Goal Tdap. Due on due Goal HPV (3rd). Due on 8 due Goal Diabetes Screening. Due on due Goal HPV (2nd) due Goal Influenza vaccine. Due on due Goal APE. Due on due Goal Document SOGI Information. D ue on due Goal Dietary management education , guidance, and counseling completed Goal Fluoride varnish application . Due on due Goal HPV (3rd). Due on 8 due Goal Diabetes Screening. Due on due Goal HPV (2nd) due Goal Influenza vaccine. Due on due Goal APE. Due on due Goal Document SOGI Information. D ue on due Goal HPV (3rd). Due on 8 due Goal HPV (1st) due Goal Pneumococcal vaccine due Goal APE. Due on due Goal Influenza vaccine. Due on due Goal HPV (2nd) due Goal Document SOGI Information. D ue on due Goal Diabetes Screening. Due on due Goal Fluoride varnish application . Due on due Goal HPV (2nd) due Goal Influenza vaccine. Due on due Goal Fluoride varnish application . Due on due Goal Diabetes Screening. Due on due Goal HPV (1st) due Goal APE. Due on due Goal Document SOGI Information. D ue on due Goal Pneumococcal vaccine due Goal HPV (3rd). Due on 8 due Goal Pneumococcal vaccine due Goal HPV (3rd). Due on 8 due Goal HPV (2nd). Due on 8 due Goal Influenza vaccine. Due on due Goal HPV (1st) due Goal HPV (3rd). Due on 8 due Goal Pneumococcal vaccine due Goal HPV (2nd). Due on 8 due Goal Influenza vaccine. Due on due Goal HPV (1st) due Goal Tdap. Due on due Goal HPV (3rd). Due on 8 due Goal Influenza vaccine. Due on due Goal Pneumococcal vaccine due Goal HPV (2nd). Due on 8 due Goal Tdap. Due on due Goal HPV (1st) due Goal HPV (1st) due Goal Influenza vaccine. Due on due Goal HPV (3rd). Due on 8 due Goal Tdap. Due on due Goal Pneumococcal vaccine due Goal HPV (2nd). Due on 8 due Goal Hearing screen (10-21 yr). D ue on due Goal Flouride Varnish. Due on Sep due Goal Fluoride varnish application . Due on due Goal Tdap. Due on due Goal Pneumococcal vaccine due Goal HPV (1st) due Goal Influenza vaccine. Due on due Goal Hearing screen (10-21 yr). D ue on due Goal Hematocrit due Goal Flouride Varnish. Due on Oct due Goal Tobacco Usage/Advice to Quit . Due on due Goal HPV (1st). Due on 6 due Goal Flouride Varnish. Due on Aug due Goal Tobacco Usage/Advice to Quit . Due on due Goal Influenza vaccine. Due on due Goal Hearing screen (10-21 yr). D ue on due Goal Hematocrit . Due on 016 due Goal Hematocrit . Due on 016 due Goal Hearing screen (10-21 yr). D ue on due Goal Hearing screen (10-21 yr). D ue on due Goal Hematocrit . Due on 015 due Referral Ordered: Referrals: Dermatology. Consult Appointment date/timeframe: 06/30/2019 ordered Referral Ordered: Referrals: Dermatology. Evaluate and treat Appointment date/timeframe: 12/16/2015 ordered History Of Present Illness Encounter Date Complaint History Of Prese nt Illness stomach pain CC: stomach pain Lang: Eng22 y/o M here for pain - clarifies the pain is located along left side of ribs/chest, not stomach. It's been 1 week of this - hard to breath it because he feels ache and sharp stabbing pain. Lasts a few seconds and resolves when he breaths out. If he has shallow breathing it's fine. Initially when he pushed on this area he could feel the pain, but that's improved. Overall getting significantly better. If he stretches too much or moves in one direction quickly he can feel it. Taking tylenol and put a pillow under his back which helped a lot. Works at [employer], does a lot of heavy lifting. No recent gym/strenous exercise.ROS neg for CP, reflux, cough, fevers, recent URI, n/vnonsmokerneg fhx sudden cardiac or stomach dz APJose Angel. 19yo M here for CRISSY w/mom and brotherLast visit w/me in [id number]) Eczema.Was recently referred to derm but no-showed appt on `06/30/19PSH: noneAllergies: NKDA/NKFAMeds: steroid creamSH: lives w/mom, dad, and brother. no smokers, no petsSchool - [employer] for general studies - was thinking about zoology but unsure. 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 tries to avoid juice and sodaElim: no concernsSleep: sleeps through the night, no nighttime wakening. has recently transitioned to more consistent sleep schedno EtOH, no tobacco, vaping, marijuana, illicit drugs. not currently in a relationship; not currently sexually active, never has been; sexually attracted to women Well child 19yo M here for APE w/mom and brotherPrejay Sewell pt, last seen for 17yo CPE but has been seen twice in 2019 for eczema flaresPMH1) Eczema.Was recently referred to derm but no-showed appt on 06/30/19Has been hospitalized for this beforeDaily care: regular and liberal use of emollients on a daily basis and other xerosis-reducing behaviors (e.g., taking low-heat showers, using emollient washes-Cetaphil, and moisturizers low in water-Cetaphil, Aquaphor)d/t severity of disease, could benefit from maintenance steroid dosePSH: noneAllergies: NKDA/NKFAMeds: steroid creamSH: lives w/mom, dad, and brother. no smokers, no petsschool - [employer], senior. work - [employer] exercises - 45 minutes every day. is planning on doing basketball and baseballPlans to go to [facility] - zoologistDiet: no vegetables or fruits. eats meat, rice and beans. tries to avoid juice and sodaElim: no concernsSleep: sleeps through the night, no nighttime wakening. sleeps around 6hrsConfidential: no EtOH, no tobacco, vaping, marijuana, illicit drugs. currently in a relationship w/a girl, not sexually active - never has been nail problem The patient pres ents with a nail disorder that began recently. The symptoms are described as severe. The problem has not changed. The problem affects the nails on the 1st toe(s) on the right foot. The nail(s) affected are described as ingrown nail. Associated symptoms include edema, erythema and pain. ingrown toenail R great toenail ingr own (comments) 18 yo male here with approx 1 month of a worsening ingrown right great toenail Now with increased redness and pustular d/c No prior episodes He notes it is not painful eczema flare (comments) He has c hronic eczema seen by derm in past here with several weeks of a flare and requesting meds Not certain when last flare was-on chart review looks like Sep No current meds at home He reports not using any soap in shower Dad wondering about use of fabric softener R great toenail ingrown eczema flare rash. CC: rashLang: En glish for pt, Span phone inter for momHPI: Otherwise healthy 18 y/o M w/ hx of eczema here with worsening itchy rash. For the past 1 month his rash has gotten worse - very itchy, dry skin over hands, arms, trunk and legs. No facial or genital involvement. He had prior rx for Flucinolone ointment but that ran out & he doesn't have refills. He bathes/showers 1 X a day, using hot water. He does not apply lotion very often. No fevers, no surrounding redness or pain to itch area. Well Child Well Child Skin sx Px with hx of mo derate to severe eczema, treated with various topical steroids, with little relief, has gotten worse lately, no fever, no URI sx. Eczema Px with eczema, with intermittent rash. Well child fall on l. knee,seen in ER kathy l X rays, is much better, using knee brace, wants to go back to gym, mom wants an Ortho referral Well Child no questions Functional Status Date Functional Assessmen t No Information Instructions Date Instruction Additional Infor karin Dietary management e ducation, guidance, and counseling Age appropriate anti cipatory guidance discussed (- years) Related to Encntr for routine child health exam w/o abnormal findings Age appropriate diet discussed ( years) Related to Encntr for routine child health exam w/o abnormal findings Oral Health Discussed ( yea rs) Related to Encntr for routine child health exam w/o abnormal findings Age appropriate anti cipatory guidance discussed ( years) Related to Encntr for routine child health exam w/o abnormal findings Age appropriate diet discussed ( years) Related to Encntr for routine child health exam w/o abnormal findings Oral Health Discussed ( yea rs) Related to Encntr for routine child health exam w/o abnormal findings Age appropriate anti cipatory guidance discussed (- years) Related to Encntr for routine child health exam w/o abnormal findings Age appropriate diet discussed (11-14 years) Related to Encntr for routine child health exam w/o abnormal findings Oral Health Discussed (-14 yea rs) Related to Encntr for routine child health exam w/o abnormal findings no gym x 3 more wks, rtc if no better or worse by then Related to Contusion of left knee Age appropriate anti cipatory guidance discussed Related to routine /child health checkup Age approriate antic ipatory guidance discussed Related to routine infant/child health checkup Assessments Type Assessment Date assessment Rib pain Patient Care Teams Name Effective Dates (start - stop) Status Members No Information
== END 2025-01-06 00:01 | disposition home or self-care (01) ==
LOC: CF
DX: S68.110D Complete traumatic metacarpophalangeal amputation of right index finger, subsequent encounter (principal)
CPT/HCPCS: 99212; J2003

== ENCOUNTER 2025-01-06 11:03 | Outpatient (AMB) | payer SELFPAY ==
[2025-01-06 11:04] VITALS: BMI 27.3
--- NOTE | 2025-01-06 11:04 | A.OFFVIS_ITS ---
Vital Signs 01/06/25 11:04 Height 5 ft 10 in Weight 190 lb BMI 27.3 Intake Visit Reasons: PO RT IF amp rev 12/14/24 AR Intake Note: Davion is a 24 year old right hand dominant male who presents today post operatively s/p right index finger revision amputation, right index finger I&D of open fracture of distal phalanx and right index finger excision of germinal and sterile nail matrices, w/ Dr Sherlyn Bonner DOS: 12/14/24. At his last visit on 12/30/24 Augmentin was prescribed. Patient reports that he is doing well, with no concerns. He has continued to take Augmentin. Allergies No Known Allergies Allergy (Verified 01/06/25 11:07) HPI HPI PO RT IF amp rev 12/14/24 AR: Details: Davion is a 24 year old right hand dominant male who presents today post operatively s/p right index finger revision amputation, right index finger I&D of open fracture of distal phalanx and right index finger excision of germinal and sterile nail matrices, w/ Dr Sherlyn Bonner DOS: 12/14/24. At his last visit on 12/30/24 Augmentin was prescribed. Patient reports that he is doing well, with no concerns. He has continued to take Augmentin. [facility] Medical History Eczema Surgical History H/O wisdom tooth extraction Social History Are you a primary healthcare consultant to a significant other at home: No Do you presently have visiting nurse or other home services: No Patient Tobacco Use Status: Current everyday Tobacco user Tobacco use type: Smokeless Tobacco Current occupational status: employed Current occupation: right hand dominant Review of Systems Const All systems reviewed & are unremarkable except as noted in HPI and below Physical Exam Vital Signs: BMI result Body Mass Index 27.3 Extrem Other: Patient is alert, oriented, and in no acute distress. Neuro: Normal sensation of the tips of all other digits of the right hand at this time Vascular: Cap refill brisk Patient is able to make a closed fist and extend the 2nd through 5th digits of the right hand without difficulty Skin: Traumatic amputation status post amputation revision just distal to the DIP joint of the right index finger Incision site well-approximated Sutures in place No active bleeding at this time No drainage or other evidence of infection General: No ecchymosis, erythema, or evidence of infection. Psych: Appears grossly normal Affect normal Attitude cooperative Assessment & Plan Assessment & Plan (1) Traumatic amputation of tip of right index finger: Code(s): S68.110A - Complete traumatic metacarpophalangeal amputation of right index finger, initial encounter Category: Medical Plan 1. Traumatic partial amputation of the right index finger Status post amp revision Date of injury 12/09/2024 DOS 12/14/2024 Patient appears to be recovering well postoperatively Patient is educated about the typical recovery course Patient is educated that he can continue washing the amputation site with soap and water in the sink of the shower, but should continue to avoid submerging Sutures removed in the office today, of note several sutures were under healed skin and required numbing medication to be able to remove comfortably for the patient New dressing applied in the office today No further antibiotic therapy needed Patient will follow-up in 2 week with repeat x-rays for reassessment, sooner with any acute concerns Coding Level of Care Code Global (15617) Diagnoses Traumatic amputation of tip of right index finger S68.110A
--- OUTSIDE RECORDS SUMMARY | 2025-01-06 13:03 | XMS_ITS | Continuity of Care Document ---
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 [address] [place], [place], [id number], [place]. tel:[phone] [facility], [address] [place] [address] ng [address], [place], [id number], [place] tel:[phone] [facility] No Information 1 Alejandro Ha. [address] [place], [place], [id number]. tel:[phone] PREV VISIT, EST, AGE 18-39 [facility], [address] [facility] ng [address], [place], [place], [id number], [place] tel:[phone] [facility] APE. (chief complaint) Encounter for general adult medical examination without abnormal findingsBody mass index [BMI] pediatric, 85th percentile to less than 95th percentile for age 1 Sarah Osorio. [address] [place], [place], [id number], [place]. tel:[phone] [facility], [address] [place] [address] ng [address], [place], [place], [id number], [place] tel:[phone] [facility] Patient left without being seen 1 Sarah Osorio. [address] [place], [place], [id number], [place]. tel:[phone] [facility], [address] [place] [address] ng [address], [place], [id number], [place] tel:[phone] Tele [facility] No Information Cesar-0 0 Viki Jane. [address] [place], [place], [id number], [place]. tel:[phone] [facility], [address] [facility] [address], [place], [place], [id number], [place] tel:[phone] [facility] Dermatitis, unspecified Cesar-0 0 [facility]. . Consulting Provider: Carmen Bella, [address] [place], [address]. tel:[phone] PREV VISIT, EST, AGE 18-39 [facility], [address] [place] [address] 2,[address], [place], [place], [id number], [place] tel:[phone] [facility] Well child (chief complaint) Eczema, unspecified typeEncntr for general adult medical exam w/o abnormal findings 9 Sarah Osorio. [address] [place], [place], [id number], [place]. tel:[phone] OFFICE/OUTPA TIENT VISIT, EST [facility], [address] [facility] [address], [place], [place], [id number], [place] tel:[phone] [facility] nail problem (chief complaint) Ingrown toenail of right foot with infection 9 Yvonne Alvarez. [address] [place] [address], [id number]. tel:[phone] [facility], [address] [facility] [address], [place], [place], [id number], [place] tel:[phone] [facility] ingrown toenail (chief complaint) Patient left without being seen 9 Yvonne Alvarez. [address] [place], [place], [id number]. tel:[phone] OFFICE/OUTPA TIENT VISIT, EST [facility], [address] [facility] [address], [place], [place], [id number], [place] tel:[phone] [facility] R great toenail ingrown (chief complaint) eczema flare (chief complaint) Ingrown toenail of right foot with infectionEcze ma, unspecified type 9 Viki Lara. [address] [place] [address], [id number], [place]. tel:[phone] OFFICE/OUTPA TIENT VISIT, EST [facility], [address] [facility] [address], [place], [place], [id number], [place] tel:[phone] [facility] rash. (chief complaint) Eczema, unspecified type 9 Rosaline Welsh. [address] [place] [address], [id number], [place]. tel:[phone] PREV VISIT, EST, AGE 12-17 [facility], [address] [facility] [address], [place], [place], [id number], [place] tel:[phone] [facility] Well Child (chief complaint) Encntr for routine child health exam w/o abnormal findings 8 No Information PREV VISIT, EST, AGE 12-17 [facility], [address] [facility] [address], [place], [place], [id number], [place] tel:[phone] [facility] Well Child (chief complaint) Encounter for routine child health examination with abnormal findingsEczem a, unspecified type 6 No Information OFFICE/OUTPA TIENT VISIT, EST [facility], [address] [facility] [address], [place], [place], [id number], [place] tel:[phone] [facility] Skin sx (chief complaint) Eczema, unspecified type 6 No Information PREV VISIT, EST, AGE 12-17 [facility], [address] [facility] [address], [place], [place], [id number], [place] tel:[phone] [facility] Well child (chief complaint) Eczema (chief complaint) Encounter for routine child health examination with abnormal findingsEczem a, unspecified eczema - 5 No Information OFFICE/OUTPA TIENT VISIT, EST [facility], [address] [facility] [address], [place], [place], [id number], [place] tel:[phone] [facility] fall on l. knee,seen in ER (chief complaint) Contusion of left knee 5 No Information PREV VISIT, EST, AGE 12-17 [facility], [address] [facility] [address], [place], [place], [id number], [place] tel:[phone] [facility] Well Child (chief complaint) [facility]IN CHILD HEALTH EXAM 4 No Information OFFICE/OUTPA TIENT VISIT, EST [facility], [address] [facility] [address], [place], [place], [id number], [place] tel:[phone] [facility] eczema (chief complaint) Contact dermatitis and other eczema, unspecified causeOnychomy cosis - 4 No Information OFFICE/OUTPA TIENT VISIT, EST [facility], [address] [facility] [address], [place], [place], [id number], [place] tel:[phone] [facility] fever (chief complaint) diarrhea (chief complaint) Abdominal pain 3 No Information PREV VISIT, EST, AGE 5-11 [facility], [address] [facility] [address], [place], [place], [id number], [place] tel:[phone] [facility] Well child - 11 Years (chief complaint) Routine or child health checkContact dermatitis and other eczema, unspecified causeRoutine infant or child health check 3 No Information OFFICE/OUTPA TIENT VISIT, EST [facility], [address] [facility] [address], [place], [place], [id number], [place] tel:[phone] [facility] skin itching (chief complaint) EczemaNeed for prophylactic vaccination and inoculation against other specified single bacterial diseaseNEED FOR PROPHYLACTIC VACCINATION WITH COMBINED DIPHTHERIA-TE TANUS-PERTUSS IS (DTP) (DTAP) VACCINE 3 No Information FAMILY PSYTX W/PATIENT [facility], [address] [facility] [address], [place], [place], [id number], [place] tel:[phone] [facility] Persistent adjustment disorder 2 No Information PREV VISIT, EST, AGE 5-11 [facility], [address] [facility] [address], [place], [place], [id number], [place] tel:[phone] [facility] Well child - 10 Years (chief complaint) Routine or child health checkRoutine or child health check 2 No Information OFFICE/OUTPA TIENT VISIT, EST [facility], [address] [facility] [address], [place], [place], [id number], [place] tel:[phone] [facility] neck pain (chief complaint) Cervicalgia 2 No Information [facility], [address] [facility] [address], [place], [place], [id number], [place] tel:[phone] [facility] No Information 1 No Information [facility], [address] [facility] [address], [place], [place], [id number], [place] tel:[phone] [facility] No Information 0 No Information [facility], [address] [facility] [address], [place], [place], [id number], [place] tel:[phone] [facility] No Information 9 Viki Lara. [address] [place] [address], [id number], . tel:[phone] [facility], [address] [facility] [address], [place], [place], [id number], tel:[phone] [facility] No Information Dec- No Information [...] type Covered alliance party ID Authoriza tion(s) [address] [id number] [address] [id number] [facility] [id number] [facility] [id number] Social History Type Description Quantity Date Captured [...] back which helped a lot. Works at [employer], does a lot of heavy lifting. No [...] on due Goal Diabetes Screening. Due on N due Goal HPV (1st) due Goal APE. [...] back which helped a lot. Works at [employer], does a lot of heavy lifting. No recent gym/strenous exercise.ROS neg for CP, reflux, cough, fevers, recent URI, n/vnonsmokerneg fhx sudden cardiac or stomach dz APE. 19yo M here for APE w/mom and brotherLast visit w/me in [id number]) Eczema.Was recently referred to derm but no-showed appt on `06/30/19PSH: noneAllergies: NKDA/NKFAMeds: steroid creamSH: lives w/mom, dad, and brother. no smokers, no petsSchool - [employer] for general studies - was thinking about zoology but unsure. 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 no smokers, no petsschool - [employer], senior. work - [employer]. exercises - 45 minutes every day. is planning on doing basketball and baseballPlans to go to [facility] - zoologistDiet: no vegetables or fruits. [...]
== END 2025-01-06 12:07 | disposition home or self-care (01) ==
LOC: HO.HOS 11:03
DX: S68.110A Complete traumatic metacarpophalangeal amputation of right index finger, initial encounter (principal)
CPT/HCPCS: 99024

== ENCOUNTER 2025-01-20 11:37 | Outpatient (AMB) | payer OTHER, SELFPAY ==
--- NOTE | 2025-01-20 11:39 | MHC.OFFVIS ---
Vital Signs 01/20/25 11:43 Height 5 ft 10 in Weight 200 lb BMI 28.7 Handedness Right Intake Visit Reasons: PO RT IF amp rev 12/14/24 AR Intake Note: Davion is a 24 year old right hand dominant male who presents today post operatively s/p right index finger revision amputation, right index finger I&D of open fracture of distal phalanx and right index finger excision of germinal and sterile nail matrices, w/ Dr Sherlyn Bonner DOS: 12/14/24. Patient reports he feels improvement in his finger. He continues to have some mild sensitivity at the tip of his finger. Expresses some stiffness in his 2nd MCP of the right hand. Denies numbness and tingling. No pain with movement, some discomfort however he reports he can't always notice the discomfort. Allergies No Known Allergies Allergy (Verified 01/20/25 11:44) HPI HPI PO RT IF amp rev 12/14/24 AR: Details: Davion is a 24 year old right hand dominant male who presents today post operatively s/p right index finger revision amputation, right index finger I&D of open fracture of distal phalanx and right index finger excision of germinal and sterile nail matrices, w/ Dr Sherlyn Bonner DOS: 12/14/24. Patient reports he feels improvement in his finger. He continues to have some mild sensitivity at the tip of his finger, but patient states this has improved dramatically over the last 2 weeks. Expresses some stiffness in his 2nd MCP of the right hand, but again reports that this has improved significantly from last visit.. Denies numbness and tingling. No pain with movement, some discomfort however he reports he can't always notice the discomfort. [facility] Medical History Eczema Surgical History H/O wisdom tooth extraction Social History Are you a primary resident care manager to a significant other at home: No Do you presently have visiting nurse or other home services: No Patient Tobacco Use Status: Current everyday Tobacco user Tobacco use type: Smokeless Tobacco Current occupational status: employed Current occupation: right hand dominant Review of Systems Const All systems reviewed & are unremarkable except as noted in HPI and below Physical Exam Vital Signs: BMI result Body Mass Index 28.7 Extrem Other: Patient is alert, oriented, and in no acute distress. Neuro: Normal sensation of the tips of all other digits of the right hand at this time Vascular: Cap refill brisk Patient is able to make a closed fist and extend the 2nd through 5th digits of the right hand without difficulty Skin: Traumatic amputation status post amputation revision just distal to the DIP joint of the right index finger Significant healing has taken place since last visit Incision site well-approximated Sutures in place Small scab noted on the tip of the finger, but no evidence of drainage General: No ecchymosis, erythema, or evidence of infection. Psych: Appears grossly normal Affect normal Attitude cooperative Assessment & Plan Assessment & Plan (1) Traumatic amputation of tip of right index finger: Code(s): S68.110A - Complete traumatic metacarpophalangeal amputation of right index finger, initial encounter Category: Medical Plan 1. Traumatic partial amputation of the right index finger Status post amp revision Date of injury 12/09/2024 DOS 12/14/2024 Patient appears to be recovering well postoperatively Patient is educated about the typical recovery course Patient is educated that he can continue washing the amputation site with soap and water in the sink of the shower, but should continue to avoid submerging for 1 more week Patient was advised that he should put a light dressing on when he is out and about, but should be leaving the finger open to air at home and while at rest Patient will follow-up in 2 week with repeat x-rays for reassessment, sooner with any acute concerns. Anticipate return to work at that time Coding Level of Care Code Global (71809) Diagnoses Traumatic amputation of tip of right index finger S68.110A
[2025-01-20 11:43] VITALS: BMI 28.7
--- OUTSIDE RECORDS SUMMARY | 2025-01-20 14:03 | XMS_ITS | Continuity of Care Document ---
Author Name [facility] Organization [facility] Care Team Providers Care Church Business Administrator Name Role Phone [facility] Unavailable Unavailable Medications Combined list of outpatient [...] Ordered 2 2021 42.5 1511C-R melvin Junior [facility] ibuprofen 800 mg oral tablet ibuprofe n [...] Site Reaction Lot Number CVX Code Drug Vehicle Fare Collector Status Comments Source hepatitis B adult vaccine 2020 zzPankaj ht Arm [id number] GlaxoSmithKli ne complet ed hepatitis B adult vaccine 09/05/21 Given Ambulat ory Pharmac y varicella virus vaccine 2020 zzRig ht Arm [id number] Merck & Company Inc complet ed varicella virus vaccine 09/05/21 Given Ambulat ory Pharmac y measles/mumps /rubella virus vaccine 2020 zzLef t Arm [id number] Merck & Company Inc complet ed measles/m umps/rube lla virus vaccine 09/05/21 Given Ambulat ory Pharmac y COVID Vaccine Pfizer 2020 zzLef t Arm [id number] PFIZER complet ed COVID Vaccine Pfizer 09/05/21 Given Ambulat ory Pharmac y measles, mumps and rubella virus vaccine 2 2020 PHAM, ALESI A [id number] Merck (MSD) complet ed measles, mumps and rubella virus vaccine DoD varicella virus vaccine 2 2020 PHAM, ALESI A [id number] Merck (MSD) complet ed varicella virus vaccine DoD Hepatitis B vaccine (recombinant) , CpG adjuvanted 2 2020 PHAM ALESI A [id number] [facility] Tao [employer]vo[employer] (SKB) complet ed Hepatitis B vaccine (recombin ant), CpG adjuvante d DoD SARS-COV-2 (COVID-19) vaccine, mRNA, spike protein, LNP, preservative free, 30 mcg/0.3mL dose 2 2020 ANKIT ALESI A [id number] Pfizer, Inc (PFR) complet ed SARS-COV- 2 (COVID-19 ) vaccine, mRNA, spike protein, LNP, preservat benson free, 30 mcg/0.3mL dose DoD meningococcal A,C,Y,W-135 (MCV4P) 2020 Tu Arm [id number] sanofi pasteur complet ed meningoco ccal A,C,Y,W-1 35 (MCV4P) 08/07/21 Given Ambulat ory Pharmac y tetanus, diphtheria, acellular pertu is 2020 zzLef t Arm [id number] Impres [employer] ne complet ed tetanus, diphtheri a, acellular pertussis 08/07/21 Given Ambulat ory Pharmac y adenovirus vaccine, live 2020 [id number] 143 Unknown complet ed adenoviru s vaccine, live 08/07/21 Given Ambulat ory Pharmac y tuberculin purified protein derivative 2020 zzLef t Arm [id number] 96 sanofi pasteur complet ed tuberculi n purified protein derivativ e 08/07/21 Given Ambulat ory Pharmac y influenza, injectable, [facility]rivalent- [facility] [id number] 150 Seqirus complet ed influenza , injectabl e, quadrival ent-pf 08/07/21 Given Ambulat ory Pharmac y COVID Vaccine Pfizer 2020 zzLef t Arm [id number] PFIZER complet ed COVID Vaccine Pfizer 08/07/21 Given Ambulat ory Pharmac y hepatitis B adult vaccine 2020 zzRig ht Arm [id number] 43 GlaxoSmithKli ne complet ed hepatitis B adult vaccine 08/07/21 Given Ambulat ory Pharmac y varicella virus vaccine 2020 zzRig ht Arm [id number] 21 Merck & Company Inc complet ed varicella virus vaccine 08/07/21 Given Ambulat ory Pharmac y measles/mumps /rubella virus vaccine 2020 zzLef t Arm [id number] Merck & Company Inc complet ed measles/m umps/rube lla virus vaccine 08/07/21 Given Ambulat ory Pharmac y [facility], inactivated [facility] [id number] complet ed polioviru s vaccine, inactivat ed 08/07/21 Given Ambulat ory Pharmac y measles, mumps and rubella virus vaccine 1 2020 HUEY HARRISON [id number] Merck (MSD) complet ed measles, mumps and rubella virus vaccine DoD poliovirus vaccine, inactivated 1 2020 HUEY HARRISON [id number] Moderna Work4 Inc. (MOD) complet ed polioviru s vaccine, inactivat ed DoD varicella virus vaccine 1 2020 HUEY HARRISON [id number] 21 Merck (MSD) complet ed varicella virus vaccine DoD tuberculin skin test; purified protein derivative solution, intradermal 1 2020 HUEY HARRISON [id number] Sanofi Pasteur (PMC) complet ed tuberculi n skin test; purified protein derivativ e solution, intraderm al DoD meningococcal polysaccharid e (groups A, C, Y and W-135) diphtheria toxoid conjugate vaccine (MCV4P) 1 2020 HUEY HARRISON [id number] Sanofi Pasteur (PMC) complet ed meningoco ccal polysacch aride (groups A, C, Y and W-135) diphtheri a toxoid conjugate vaccine (MCV4P) DoD tetanus toxoid, reduced diphtheria toxoid, and acellular pertu is vaccine, adsorbed 1 2020 HUEY HARRISON [id number] 115 [facility] (SK) complet ed tetanus toxoid, reduced diphtheri a toxoid, and acellular pertussis vaccine, adsorbed DoD Adenovirus, type 4 and type 7, live, oral 1 2020 HUEY HARRISON [id number] 143 Unknown (UNK) complet ed Adenoviru s, type 4 and type 7, live, oral [facility] Influenza, injectable, quadrivalent, preservative free 1 2020 HUEY HARRISON [id number] 150 Seqirus (SEQ) complet ed Influenza , injectabl e, quadrival ent, preservat benson free [facility] Hepatitis B vaccine (recombinant) , CpG adjuvanted 1 2020 HUEY HARRISON [id number] [facility] (BIANCA) complet ed Hepatitis B vaccine (recombin ant), CpG adjuvante d [facility] SARS-COV-2 (COVID-19) vaccine, mRNA, spike protein, LNP, preservative free, 30 mcg/0.3mL dose 1 2020 HUEY HARRISON [id number] Pfizer, Inc (PFR) complet ed SARS-COV- 2 (COVID-19 ) vaccine, mRNA, spike protein, LNP, preservat benson free, 30 mcg/0.3mL dose [facility] Vital Signs Combined list of inpatient and outpatient Vital Signs from Department of Defense and Veterans Affairs, ranging from 12 months to all on record, depending upon the facility. Vital Sign Value Date Comments Source BP Site Left arm [facility]30[facility] Temperature Temporal Artery 36.5 Marily 01/30/2022 13:15[facility] Systolic Blood Pressure 126 mm[Hg] 01/31/20 22 13:15[facility] Diastolic Blood Pressure 75 mm[Hg] 022 13:15[facility] Peripheral Pulse Rate 98 bpm 01/30/2022 13:15[facility] Blood Pressure Manual Automatic 01/30/2022 13:15:[facility] Mean Arterial Pressure, Calc 92 mm[Hg] 01/30/2022 [facility] Respiratory Rate 14 br/min 01/30/2022 13:15[facility] Count Includes [facility] Peripheral Pulse Rate 74 bpm 12/15/2021 15:01:00 [facility] Systolic Blood Pressure 109 mm[Hg] 12/16/19 22 15:01:00 [facility] Diastolic Blood Pressure 54 mm[Hg] 022 15:01:00 [facility] Respiratory Rate 16 br/min 12/15/2021 15:01:00 [facility] Count Includes [facility] Mean Arterial Pressure, Calc 72 mm[Hg] 12/15/2021 15:01:[address] [place] [address] Temperature Temporal Artery 36.5 Marily 12/15/2021 15:01:00 [facility] Blood Pressure Manual Automatic 12/15/2021 15:01:[address] [place] [address] Encounters Combined list of: 1) Encounters from Department of Veterans Affairs facilities going backup to the last 18 months, not all VA inpatient encounters are included; 2) Encounters from the Department of Defense facilities going backup to 280 months. Location Location Details Encounter Type Encounter Number Reason For Visit Attending Provider ADM Date DC Date Status Disposition Source [facility]) OUTPATIENT [id number] DON DONISophia 08/03 Released w/o Limitations [facility] Fitz avina([facility] [place] miranda([facility]) OUTPATIENT [id number] 1 KHLOE ANAYA 08/07 Released w/o Limitations [facility] Fitz avina([facility]) [facility] [place] miranda[facility] [employer] OUTPATIENT [id number] FIRST VISIT FOR IMMUNIZ ATISIAH WEST 08/07 Released w/o Limitations [facility] Fitz avina([facility] [employer] ) [facility] miranda[facility] [employer] OUTPATIENT [id number] SECOND VISIT FOR IMMUNIZ MIGUELINA SORIANO 09/05 Released w/o Limitations [facility] Fitz avina([facility] [employer] ) Procedures Combined list of: 1) Procedures from Department of [facility] Affairs facilities going back up to thelast 18 months, not all VA non-surgical procedures are included; 2) All procedures from the Department of Defense facilities. Procedure Procedure Type Code Date Perfomer Comments Sourc e IMMUNIZATION ADM,INTRAMUSCULAR INJ,SEVERE AC RESPIRATORY SYNDROME CORONAVIR 2 (SARSCOV-2) (CORONAVIR DIS [COVID-19]) VACC,MRNALNP,SPIKE PROT,PRESRV FREE,30 MCG/0.3ML DOS,DILUENT RECONSTITUT;2ND DOSE 2020 [facility] COLLECTION OF VENOUS BLOOD BY VENIPUNCTURE 2020 [facility] OPHTHALMOLOGICAL SERVICES: MEDICAL EXAMINATION AND EVALUATION WITH INITIATION OF DIAGNOSTIC AND TREATMENT PROGRAM; INTERMEDIATE, NEW PATIENT 2020 [facility] PURE TONE AUDIOMETRY (THRESHOLD), AUTOMATED; AIR ONLY 2020 [facility] Patient education, not otherwise cla ified, non-physician provider, group, per se ion DIONNE OCHOA Threshold Audiogram (Pure Tone) Automated Threshold Audiogram (Pure Tone) Automated [id number] DIONNE OCHOA [facility] Spectacles Services Fitting Monofocals (Not For Aphakia) [employer] Services Fitting Monofocals (Not For Aphakia) [id number] [facility] Ophthalmological New Patient Start Intermediate Level Care Ophthalmological New Patient Start Intermediate Level Care [id number] [facility] Vaccines Viral Measles, Mumps and Rubella, Live Vaccines Viral Measles, Mumps and Rubella, Live 66112 HUEY HARRISON MMR; Series #: 1; 0.5 mL; SC; Left Arm; Mfg: Merck; Lot: [id number]; VIS given (Artem: 05/05/2021). [facility] Vaccines Viral Polio, Inactivated (Salk) Vaccines Viral Polio, Inactivated (Salk) 90221 HUEY HARRISON IPV; Series #: 1; 0.5 mL; IM; Right Arm; Mfg: Moderna [employer].; Lot: [id number]; VIS given (Artem: 05/05/21; 12/30/19 - Multiple). [facility] Vaccines Viral Varicella (Active) Vaccines Viral Varicella (Active) 58846 HUEY HARRISON Varicella; Series #: 1; 0.5 mL; SC; Right Arm; Mfg: Merck; Lot: [id number]; VIS given (Artem: 05/05/2021). [facility] Skin Test Anergy Tuberculin Intradermal Skin Test Anergy Tuberculin Intradermal 32931 HUEY HARRISON IPPD; Series #: 1; 0.1 mL; ID; Left Arm; Mfg: Sanofi Pasteur; Lot: [id number]; VIS given. [facility] Meningococcal Polysacch Diphtheria Toxoid Conjugate Vaccine Meningococcal Polysacch Diphtheria Toxoid Conjugate Vaccine 13439 HUEY HARRISON Meningococcal MCV4P (Menactra); Series #: 1; 0.5 mL; IM; Right Arm; Mfg: Sanofi Pasteur; Lot: [id number]; VIS given (Artem: 05/05/2021). [facility] Tdap Vaccine Tdap Vaccine 38055 HUEY HARRISON Tdap; Series #: 1; 0.5 mL; IM; Left Arm; Mfg: Wise [employer]; Lot: [id number]; VIS given (Artem: 05/05/2021). [facility] Vaccines Vaccines 75312 HUEY HARRISON Adenovirus Type 4 and 7; Series #: 1; 2 tablets; PO; Oral; Mfg: Unknown; Lot: [id number]; VIS given (Artem: 10/07/2019). [facility] Immunization Administration One Vaccine Immunization Administration One Vaccine 63748 HUEY HARRISON Immunization Administration Each Additional Vaccine Immunization Administration Each Additional Vaccine 97295 HUEY HARRISON Immunization Admin By Intranasal / Oral Route One Vaccine Immunization Admin By Intranasal / Oral Route One Vaccine [address] Supervised Injection Intramuscular Supervised Injection Intramuscular 79365 HUEY HARRISON Venipuncture Venipuncture 80439 HUEY HARRISON Vaccines Viral Measles, Mumps and Rubella, Live Vaccines Viral Measles, Mumps and Rubella, Live 40101 PHAM, ALESI A MMR; Series #: 2; 0.5 mL; SC; Left Arm; Mfg: Merck; Lot: [id number]; VIS given (Artem: 05/05/2021). DoD Vaccines Viral Varicella (Active) Vaccines Viral Varicella (Active) 82792 CATHY PHAM Varicella; Series #: 2; 0.5 mL; SC; Right Arm; Mfg: Merck; Lot: [id number]; VIS given (Artem: 05/05/2021). [facility] No data available for this section Ambulato ry Pharmacy Social History Combined list of available smoking, tobacco, and other social history from Department of Defense and Veterans Affairs facilities. Social History Type Response Date Comment [facility] e Sex Representation Male (finding) 12/07/2021 Un known Organization This section is an empty social history section. DoD Tobacco Never-cigarette user Cigarette use:. 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 01/20/2025 1511C-Yogesh Junior [facility] Functional Status Combined list of recent functional and cognitive assessments recorded at Department of Defense and Veterans Affairs (VA).VA Functional [place] Measurement (FIM) Scale: 1 = Total Assistance (Subject = 0% +), 2 = Maximal Assistance (Subject = 25% +), 3 = Moderate Assistance (Subject = 50% +), 4 = Minimal Assistance (Subject = 75% +), 5 = Supervision, 6 = Modified [place] (Device), 7 = Complete [place] (Timely, Safely). Assessment Date/Time Source Assessment Type Assessment Skill Assessment Score Assessment Details No data available for this section
--- OUTSIDE RECORDS SUMMARY | 2025-01-20 14:04 | XMS_ITS | Continuity of Care Document ---
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 [address] [place], [place], [id number], [place]. tel:[phone] [facility], [address] [place] [address] [address], [place], [id number], [place] tel:[phone] [facility] No Information 1 Alejandro Ha. [address] [place], [place], [id number]. tel:[phone] PREV VISIT, EST, AGE 18-39 [facility], [address] [facility],[address], [place], [place], [address], [place] tel:[phone] [facility] APE. (chief complaint) Encounter for general adult medical examination without abnormal findingsBody mass index [BMI] pediatric, 85th percentile to less than 95th percentile for age 1 Sarah Osorio. [address] [place], [place], [id number], [place]. tel:[phone] [facility], [address] [place] [address] ng [address], [place], [place], [id number], [place] tel:[phone] [facility] Patient left without being seen 1 Sarah Osorio. [address] [place], [place], [address], [place]. tel:[phone] [facility], [address] [place] [address] [address], [place], [address], [place] tel:[phone] Tele [facility] No Information Cesar-0 0 Viki Jane. [address] [place], [place], [id number], [place]. 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 . Consulting Provider: Carmen Bella, [address] [place], [address]. tel:[phone] PREV VISIT, EST, AGE 18-39 [facility], [address] [place] [address] 2,[address], [place], [place], [id number], [place] tel:[phone] [facility] Well child (chief complaint) Eczema, unspecified typeEncntr for general adult medical exam w/o abnormal findings 9 Sarah Osorio. [address] [place], [place], [id number], [place]. tel:[phone] OFFICE/OUTPA TIENT VISIT, EST [facility], [address] [facility] [address], [place], [place], [address], [place] tel:[phone] [facility] nail problem (chief complaint) Ingrown toenail of right foot with infection 9 Yvonne Alvarez. [address] [place] [address], [id number]. tel:[phone] [facility], [address] [facility] [address], [place], [place], [address], [place] tel:[phone] [facility] ingrown toenail (chief complaint) Patient left without being seen 9 Yvonne Alvarez. [address] [place], [place], [id number]. tel:[phone] OFFICE/OUTPA TIENT VISIT, EST [facility], [address] [facility] [address], [place], [place], [address], [place] tel:[phone] [facility] R great toenail ingrown (chief complaint) eczema flare (chief complaint) Ingrown toenail of right foot with infectionEcze ma, unspecified type 9 Viki Lara. [address] [place] [address], [id number], [place]. tel:[phone] OFFICE/OUTPA TIENT VISIT, EST [facility], [address] [facility] [address], [place], [place], [address], [place] tel:[phone] [facility] rash. (chief complaint) Eczema, unspecified type 9 Rosaline Welsh. [address] [place] [address], [id number], [place]. tel:[phone] PREV VISIT, EST, AGE 12-17 [facility], [address] [facility] [address], [place], [place], [id number], [place] tel:[phone] [facility] Well Child (chief complaint) Encntr for routine child health exam w/o abnormal findings 8 No Information PREV VISIT, EST, AGE 12-17 [facility], [address] [facility],[address], [place], [place], [address], [place] tel:[phone] [facility] Well Child (chief complaint) Encounter for routine child health examination with abnormal findingsEczem a, unspecified type 6 No Information OFFICE/OUTPA TIENT VISIT, EST [facility], [address] [facility] [address], [place], [place], [address], [place] tel:[phone] [facility] Skin sx (chief complaint) Eczema, unspecified type 6 No Information PREV VISIT, EST, AGE 12-17 [facility], [address] [facility],[address], [place], [place], [address], [place] tel:[phone] [facility] Well child (chief complaint) Eczema (chief complaint) Encounter for routine child health examination with abnormal findingsEczem a, unspecified eczema - 5 No Information OFFICE/OUTPA TIENT VISIT, EST [facility], [address] [facility] [address], [place], [place], [address], [place] tel:[phone] [facility] fall on l. knee,seen in ER (chief complaint) Contusion of left knee 5 No Information PREV VISIT, EST, AGE 12-17 [facility], [address] [facility] [address], [place], [place], [address], [place] tel:[phone] [facility] Well Child (chief complaint) ROUTIN CHILD HEALTH EXAM 4 No Information OFFICE/OUTPA TIENT VISIT, EST [facility], [address] [facility] [address], [place], [place], [address], [place] tel:[phone] [facility] eczema (chief complaint) Contact dermatitis and other eczema, unspecified causeOnychomy cosis - 4 No Information OFFICE/OUTPA TIENT VISIT, EST [facility], [address] [facility] [address], [place], [place], [address], [place] tel:[phone] [facility] fever (chief complaint) diarrhea (chief complaint) Abdominal pain 3 No Information PREV VISIT, EST, AGE 5-11 [facility], [address] [facility] [address], [place], [place], [address], [place] tel:[phone] [facility] Well child - 11 Years (chief complaint) Routine infant or child health checkContact dermatitis and other eczema, unspecified causeRoutine infant or child health check 3 No Information OFFICE/OUTPA TIENT VISIT, EST [facility], [address] [facility] [address], [place], [place], [address], [place] tel:[phone] [facility] skin itching (chief complaint) EczemaNeed for prophylactic vaccination and inoculation against other specified single bacterial diseaseNEED FOR PROPHYLACTIC VACCINATION WITH COMBINED DIPHTHERIA-TE TANUS-PERTUSS IS (DTP) (DTAP) VACCINE 3 No Information FAMILY PSYTX W/PATIENT ciro [facility], [address] [facility] [address], [place], [place], [address], [place] tel:[phone] [facility] Persistent adjustment disorder 2 No Information PREV VISIT, EST, AGE 5-11 [facility], [address] [facility] [address], [place], [place], [address], [place] tel:[phone] [facility] Well child - 10 Years (chief complaint) Routine or child health checkRoutine infant or child health check 2 No Information OFFICE/OUTPA TIENT VISIT, EST ciro [facility], [address] [facility] [address], [place], [place], [address], [place] tel:[phone] [facility] neck pain (chief complaint) Cervicalgia 2 No Information [facility], [address] [facility] [address], [place], [place], [address], [place] tel:[phone] [facility] No Information 1 No Information [facility], [address] [facility] [address], [place], [place], [address], [place] tel:[phone] [facility] No Information 0 No Information [facility], [address] [facility] [address], [place], [place], [address], [place] tel:[phone] [facility] No Information 9 Viki Lara. [address] [place] [address], [id number], . tel:[phone] [facility], [address] [facility] [address], [place], [place], [address], tel:[phone] [facility] No Information Dec- No Information Family [...] Record Payers Payer name Insurance type Covered green party ID Authoriza tion(s) [id number] [id number] [facility] [id number] [facility] [id number] Social History Type Description Quantity Date Captured [...] back which helped a lot. Works at [employer], does a lot of heavy lifting. No [...] back which helped a lot. Works at [employer], does a lot of heavy lifting. No recent gym/strenous exercise.ROS neg for CP, reflux, cough, fevers, recent URI, n/vnonsmokerneg fhx sudden cardiac or stomach dz APE. 19yo M here for APE w/mom and brotherLast visit w/me in 07/[id number]) Eczema.Was recently referred to derm but no-showed appt on `06/30/19PSH: noneAllergies: NKDA/NKFAMeds: steroid creamSH: lives w/mom, dad, and brother. no smokers, no petsSchool - [employer] for general studies - was thinking about zoology but unsure. 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 no smokers, no petsschool - [employer], senior. work - [employer]. exercises - 45 minutes every day. is planning on doing basketball and baseballPlans to go to [facility] - zoologistDiet: no vegetables or [...]
== END 2025-01-20 12:07 | disposition home or self-care (01) ==
LOC: HO.HOS 11:37
DX: S68.110A Complete traumatic metacarpophalangeal amputation of right index finger, initial encounter (principal)
CPT/HCPCS: 99024

== ENCOUNTER → 2025-01-20 11:37 | Outpatient (BNVA) | payer SELFPAY | DX: S68.110D Complete traumatic metacarpophalangeal amputation of right index finger, subsequent encounter (principal) | CPT/HCPCS: 99212 ==

== ENCOUNTER 2025-02-03 10:58 | Outpatient (AMB) | payer OTHER, SELFPAY ==
--- NOTE | 2025-02-03 11:09 | MHC.OFFVIS ---
Intake Visit Reasons: PO RT IF amp rev 12/14/24 AR Intake Note: Davion is a 24 year old right hand dominant male who presents today post operatively s/p right index finger revision amputation, right index finger I&D of open fracture of distal phalanx and right index finger excision of germinal and sterile nail matrices, w/ Dr Sherlyn Bonner DOS: 12/14/24. Patient reports he has no pain and is losing the sensitivity he had. Reports his right index finger is starting to feel normal however he has some concerns of the tip of his finger not healing fully. States a scab grows over the tip and then peels off leaving a tiny raw spot on the distal end of finger. Denies numbness and tingling. Allergies No Known Allergies Allergy (Verified 02/03/25 11:15) HPI HPI PO RT IF amp rev 12/14/24 AR: Details: Davion is a 24 year old right hand dominant male who presents today post operatively s/p right index finger revision amputation, right index finger I&D of open fracture of distal phalanx and right index finger excision of germinal and sterile nail matrices, w/ Dr Sherlyn Bonner DOS: 12/14/24. Patient reports he has no pain and is losing the sensitivity he had. Reports his right index finger is starting to feel normal however he has some concerns of the tip of his finger not healing fully. States a scab grows over the tip and then peels off leaving a tiny raw spot on the distal end of finger. Denies numbness and tingling. [facility] Eczema Surgical History H/O wisdom tooth extraction Social History Are you a primary resident care assistant to a significant other at home: No Do you presently have visiting nurse or other home services: No Patient Tobacco Use Status: Current everyday Tobacco user Tobacco use type: Smokeless Tobacco Current occupational status: employed Current occupation: right hand dominant Review of Systems Const All systems reviewed & are unremarkable except as noted in HPI and below Physical Exam Extrem Other: Patient is alert, oriented, and in no acute distress. Neuro: Normal sensation of the tips of all other digits of the right hand at this time Vascular: Cap refill brisk Patient is able to make a closed fist and extend the 2nd through 5th digits of the right hand without difficulty Skin: Traumatic amputation status post amputation revision just distal to the DIP joint of the right index finger Significant healing has taken place since last visit Incision site well-approximated Sutures in place Small scab noted on the tip of the finger, but no evidence of drainage General: No ecchymosis, erythema, or evidence of infection. Psych: Appears grossly normal Affect normal Attitude cooperative Assessment & Plan Assessment & Plan (1) Traumatic amputation of tip of right index finger: Code(s): S68.110A - Complete traumatic metacarpophalangeal amputation of right index finger, initial encounter Category: Medical Plan 1. Traumatic partial amputation of the right index finger Status post amp revision Date of injury 12/09/2024 DOS 12/14/2024 Patient appears to be recovering well postoperatively Patient is educated about the typical recovery course Patient is educated that he can continue washing the amputation site with soap and water in the sink of the shower Patient was advised that he should put a light dressing on when he is out and about, but should be leaving the finger open to air at home and while at rest No further weightlifting restrictions, can return to work full duty without restrictions Patient will follow-up as needed with any acute concerns Coding Level of Care Code Global (87066) Diagnoses Traumatic amputation of tip of right index finger S68.110A
--- OUTSIDE RECORDS SUMMARY | 2025-02-03 12:23 | XMS_ITS | Continuity of Care Document ---
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,[address], [place], [id number], [place] tel:[phone] [facility] stomach pain (chief complaint) Rib pain 3 Schierberl Tasia. [address] [place], [place], [id number], [place]. tel:[phone] [facility], [address] [place] [address] ng [address], [place], [address], [place] tel:[phone] [facility] No Information 1 Alejandro Ha. [address] [place], [place], [id number]. tel:[phone] PREV VISIT, EST, AGE 18-39 [facility], [address] [facility],[address], [place], [place], [address], [place] tel:[phone] Tele [facility] APE. (chief complaint) Encounter for general adult medical examination without abnormal findingsBody mass index [BMI] pediatric, 85th percentile to less than 95th percentile for age 1 Sarah Osorio. [address] [place], [place], [id number], [place]. tel:[phone] [facility], [address] [place] [address] ng 2,[address], [place], [place], [address], [place] tel:[phone] [facility] Patient left without being seen 1 Sarah Osorio. [address] [place], [place], [id number], [place]. tel:[phone] [facility], [address] [place] [address] ng [address], [place], [address], [place] tel:[phone] Tele [facility] No Information Cesar-0 0 Viki Jane. [address] [place], [place], [id number], [place]. 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 . Consulting Provider: Carmen Bella, [address] [place], [address]. tel:[phone] PREV VISIT, EST, AGE 18-39 [facility], [address] [place] [address] 2,[address], [place], [place], [address], [place] tel:[phone] [facility] Well child (chief complaint) Eczema, unspecified typeEncntr for general adult medical exam w/o abnormal findings 9 Sarah Osorio. [address] [place], [place], [address], [place]. tel:[phone] OFFICE/OUTPA TIENT VISIT, EST [facility], [address] [facility] [address], [place], [place], [address], [place] tel:[phone] [facility] nail problem (chief complaint) Ingrown toenail of right foot with infection 9 Yvonne Alvarez. [address] [place] [address], [id number]. tel:[phone] [facility], [address] [facility] [address], [place], [place], [address], [place] tel:[phone] [facility] ingrown toenail (chief complaint) Patient left without being seen 9 Yvonne Alvarez. [address] [place], [place], [id number]. tel:[phone] OFFICE/OUTPA TIENT VISIT, EST [facility], [address] [facility] [address], [place], [place], [address], [place] tel:[phone] [facility] R great toenail ingrown (chief complaint) eczema flare (chief complaint) Ingrown toenail of right foot with infectionEcze ma, unspecified type 9 Viki Lara. [address] [place] [address], [id number], [place]. tel:[phone] OFFICE/OUTPA TIENT VISIT, EST [facility], [address] [facility], [place], [place], [address], [place] tel:[phone] [facility] rash. (chief complaint) Eczema, unspecified type 9 Rosaline Welsh. [address] [place] [address], [id number], [place]. tel:[phone] PREV VISIT, EST, AGE 12-17 [facility], [address] [facility], [place], [place], [address], [place] tel:[phone] [facility] Well Child (chief complaint) Encntr for routine child health exam w/o abnormal findings 8 No Information PREV VISIT, EST, AGE 12-17 [facility], [address] [facility],[address], [place], [place], [address], [place] tel:[phone] [facility] Well Child (chief complaint) Encounter for routine child health examination with abnormal findingsEczem a, unspecified type 6 No Information OFFICE/OUTPA TIENT VISIT, EST [facility], [address] [facility], [place], [place], [address], [place] tel:[phone] [facility] Skin sx (chief complaint) Eczema, unspecified type 6 No Information PREV VISIT, EST, AGE 12-17 [facility], [address] [facility],[address], [place], [place], [address], [place] tel:[phone] [facility] Well child (chief complaint) Eczema (chief complaint) Encounter for routine child health examination with abnormal findingsEczem a, unspecified eczema - 5 No Information OFFICE/OUTPA TIENT VISIT, EST [facility], [address] [facility], [place], [place], [address], [place] tel:[phone] [facility] fall on l. knee,seen in ER (chief complaint) Contusion of left knee 5 No Information PREV VISIT, EST, AGE 12-17 [facility], [address] [facility] [address], [place], [place], [address], [place] tel:[phone] [facility] Well Child (chief complaint) ROUTIN CHILD HEALTH EXAM 4 No Information OFFICE/OUTPA TIENT VISIT, EST [facility], [address] [facility] [address], [place], [place], [address], [place] tel:[phone] [facility] eczema (chief complaint) Contact dermatitis and other eczema, unspecified causeOnychomy cosis - 4 No Information OFFICE/OUTPA TIENT VISIT, EST [facility], [address] [facility], [place], [place], [address], [place] tel:[phone] [facility] fever (chief complaint) diarrhea (chief complaint) Abdominal pain 3 No Information PREV VISIT, EST, AGE 5-11 [facility], [address] [facility] [address], [place], [place], [address], [place] tel:[phone] [facility] Well child - 11 Years (chief complaint) Routine infant or child health checkContact dermatitis and other eczema, unspecified causeRoutine or child health check 3 No Information OFFICE/OUTPA TIENT VISIT, EST [facility], [address] [facility], [place], [place], [id number], [place] tel:[phone] [facility] skin itching (chief complaint) EczemaNeed for prophylactic vaccination and inoculation against other specified single bacterial diseaseNEED FOR PROPHYLACTIC VACCINATION WITH COMBINED DIPHTHERIA-TE TANUS-PERTUSS IS (DTP) (DTAP) VACCINE 3 No Information FAMILY PSYTX W/PATIENT ciro [facility], [address] [facility] [address], [place], [place], [address], [place] tel:[phone] [facility] Persistent adjustment disorder 2 No Information PREV VISIT, EST, AGE 5-11 [facility], [address] [facility] [address], [place], [place], [address], [place] tel:[phone] [facility] Well child - 10 Years (chief complaint) Routine or child health checkRoutine infant or child health check 2 No Information OFFICE/OUTPA TIENT VISIT, EST ciro [facility], [address] [facility] [address], [place], [place], [address], [place] tel:[phone] [facility] neck pain (chief complaint) Cervicalgia 2 No Information [facility], [address] [facility] [address], [place], [place], [address], [place] tel:[phone] [facility] No Information 1 No Information [facility], [address] [facility] [address], [place], [place], [address], [place] tel:[phone] [facility] No Information 0 No Information [facility], [address] [facility] [address], [place], [place], [address], [place] tel:[phone] [facility] No Information 9 Viki Lara. [address] [place] [address], [id number], . tel:[phone] [facility], [address] [facility] [address], [place], [place], [id number], tel:[phone] [employer] [facility] No Information Dec- No Information [...] type Covered alliance party ID Authoriza tion(s) [address] [id number] [address] [id number] [facility] [id number] [facility] [id number] Social History Type Description Quantity Date Captured [...] back which helped a lot. Works at [employer], does a lot of heavy lifting. No [...] back which helped a lot. Works at [employer], does a lot of heavy lifting. No recent gym/strenous exercise.ROS neg for CP, reflux, cough, fevers, recent URI, n/vnonsmokerneg fhx sudden cardiac or stomach dz APE. 19yo M here for APE w/mom and brotherLast visit w/me in 07/[id number]) Eczema.Was recently referred to derm but no-showed appt on `06/30/19PSH: noneAllergies: NKDA/NKFAMeds: steroid creamSH: lives w/mom, dad, and brother. no smokers, no petsSchool - [employer] for general studies - was thinking about zoology but unsure. 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 no smokers, no petsschool - [employer], senior. work - [employer]. exercises - 45 minutes every day. is planning on doing basketball and baseballPlans to go to [facility] - zoologistDiet: no vegetables or fruits. [...]
--- OUTSIDE RECORDS SUMMARY | 2025-02-03 12:23 | XMS_ITS | Continuity of Care Document ---
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 Early Childhood Development Status Comments Source hepatitis B adult vaccine 2020 zzPankaj ht Arm [id number] GlaxoSmithKli ne complet ed hepatitis B adult vaccine 09/05/21 Given Ambulat ory Pharmac y varicella virus vaccine 2020 zzRig ht Arm [id number] Merck & Company Inc complet ed varicella virus vaccine 09/05/21 Given Ambulat ory Pharmac y measles/mumps /rubella virus vaccine 2020 zzLef t Arm [id number] Merck & Company Inc complet ed measles/m umps/rube lla virus vaccine 09/05/21 Given Ambulat ory Pharmac y COVID Vaccine Pfizer 2020 zzLef t Arm [id number] PFIZER complet ed COVID Vaccine Pfizer 09/05/21 Given Ambulat ory Pharmac y measles, mumps and rubella virus vaccine 2 2020 PHAM, ALESI A [id number] Merck (MSD) complet ed measles, mumps and rubella virus vaccine DoD varicella virus vaccine 2 2020 PHAM, ALESI A [id number] 21 Merck (MSD) complet ed varicella virus vaccine DoD Hepatitis B vaccine (recombinant) , CpG adjuvanted 2 2020 PHAM ALESI A [id number] [facility] [place] (SKB) complet ed Hepatitis B vaccine (recombin ant), CpG adjuvante d DoD SARS-COV-2 (COVID-19) vaccine, mRNA, spike protein, LNP, preservative free, 30 mcg/0.3mL dose 2 2020 ANKIT ALESI A [id number] Pfizer, Inc (PFR) complet ed SARS-COV- 2 (COVID-19 ) vaccine, mRNA, spike protein, LNP, preservat benson free, 30 mcg/0.3mL dose DoD meningococcal A,C,Y,W-135 (MCV4P) 2020 Tu Arm [id number] sanofi pasteur complet ed meningoco ccal A,C,Y,W-1 35 (MCV4P) 08/07/21 Given Ambulat ory Pharmac y tetanus, diphtheria, acellular pertu is 2020 zzLef t Arm [id number] 115 [employer] complet ed tetanus, diphtheri a, acellular pertussis 08/07/21 Given Ambulat ory Pharmac y adenovirus vaccine, live 2020 [id number] 143 Unknown complet ed adenoviru s vaccine, live 08/07/21 Given Ambulat ory Pharmac y tuberculin purified protein derivative 2020 zzLef t Arm [id number] 96 sanofi pasteur complet ed tuberculi n purified protein derivativ e 08/07/21 Given Ambulat ory Pharmac y influenza, injectable, [facility]rivalent- [id number] 150 Seqirus complet ed influenza , injectabl e, quadrival ent-pf 08/07/21 Given Ambulat ory Pharmac y COVID Vaccine Pfizer 2020 zzLef t Arm [id number] PFIZER complet ed COVID Vaccine Pfizer 08/07/21 Given Ambulat ory Pharmac y hepatitis B adult vaccine 2020 zzRig ht Arm [id number] 43 GlaxoSmithKli ne complet ed hepatitis B adult vaccine 08/07/21 Given Ambulat ory Pharmac y varicella virus vaccine 2020 zzRig ht Arm [id number] 21 Merck & Company Inc complet ed varicella virus vaccine 08/07/21 Given Ambulat ory Pharmac y measles/mumps /rubella virus vaccine 2020 zzLef t Arm [id number] 03 Merck & Company Inc complet ed measles/m umps/rube lla virus vaccine 08/07/21 Given Ambulat ory Pharmac y poliovirus vaccine, inactivated [id number] complet ed polioviru s vaccine, inactivat ed 08/07/21 Given Ambulat ory Pharmac y measles, mumps and rubella virus vaccine 1 2020 HUEY HARRISON [id number] 03 Merck (MSD) complet ed measles, mumps and rubella virus vaccine DoD poliovirus vaccine, inactivated 1 2020 HUEY HARRISON [id number] Moderna [employer] (MOD) complet ed polioviru s vaccine, inactivat ed DoD varicella virus vaccine 1 2020 HUEY HARRISON [id number] 21 Merck (MSD) complet ed varicella virus vaccine DoD tuberculin skin test; purified protein derivative solution, intradermal 1 2020 HUEY HARRISON [id number] 96 Sanofi Pasteur (PMC) complet ed tuberculi n skin test; purified protein derivativ e solution, intraderm al DoD meningococcal polysaccharid e (groups A, C, Y and W-135) diphtheria toxoid conjugate vaccine (MCV4P) 1 2020 HUEY HARRISON [id number] Sanofi Pasteur (PMC) complet ed meningoco ccal polysacch aride (groups A, C, Y and W-135) diphtheri a toxoid conjugate vaccine (MCV4P) DoD tetanus toxoid, reduced diphtheria toxoid, and acellular pertu is vaccine, adsorbed 1 2020 HUEY HARRISON [id number] 115 [facility] (SK) complet ed tetanus toxoid, reduced diphtheri a toxoid, and acellular pertussis vaccine, adsorbed DoD Adenovirus, type 4 and type 7, live, oral 1 2020 HUEY HARRISON [id number] 143 Unknown (UNK) complet ed Adenoviru s, type 4 and type 7, live, oral [facility] Influenza, injectable, quadrivalent, preservative free 1 2020 HUEY HARRISON [id number] 150 Seqirus (SEQ) complet ed Influenza , injectabl e, quadrival ent, preservat benson free [facility] Hepatitis B vaccine (recombinant) , CpG adjuvanted 1 2020 HUEY HARRISON [id number] [facility] (BIANCA) complet ed Hepatitis B vaccine (recombin ant), CpG adjuvante d [facility] SARS-COV-2 (COVID-19) vaccine, mRNA, spike protein, LNP, preservative free, 30 mcg/0.3mL dose 1 2020 HUEY HARRISON [id number] Pfizer, Inc (PFR) complet ed SARS-COV- 2 (COVID-19 ) vaccine, mRNA, spike protein, LNP, preservat benson free, 30 mcg/0.3mL dose [facility] Vital Signs Combined list of inpatient and outpatient Vital Signs from Department of Defense and Veterans Affairs, ranging from 12 months to all on record, depending upon the facility. Vital Sign Value Date Comments Source BP Site Left [facility] Temperature Temporal Artery 36.5 Marily 01/30/2022 [facility] Systolic Blood Pressure 126 mm[Hg] 01/31/20 22 13:[facility] Diastolic Blood Pressure 75 mm[Hg] 022 13:[facility] Peripheral Pulse Rate 98 bpm 01/30/2022 13:[facility] Blood Pressure Manual Automatic 01/30/2022 [facility] Mean Arterial Pressure, Calc 92 mm[Hg] 01/30/2022 [facility] Respiratory Rate 14 br/min 01/30/2022 13:[facility] Peripheral Pulse Rate 74 bpm 12/15/2021 15:01[facility] Systolic Blood Pressure 109 mm[Hg] 12/16/19 22 15:[facility]00 [facility] Diastolic Blood Pressure 54 mm[Hg] 022 15:[facility]00 [facility] Respiratory Rate 16 br/min 12/15/2021 15:[facility]00 [facility] Mean Arterial Pressure, Calc 72 mm[Hg] 12/15/2021 15:01:[address] [place] [address] Temperature Temporal Artery 36.5 Marily 12/15/2021 15:01[facility]00 [facility] Blood Pressure Manual Automatic 12/15/2021 15:01:[address] [place] [address] Encounters Combined list of: 1) Encounters from Department of Veterans Affairs facilities going backup to the last 18 months, not all VA inpatient encounters are included; 2) Encounters from the Department of Defense facilities going backup to 280 months. Location Location Details Encounter Type Encounter Number Reason For Visit Attending Provider ADM Date DC Date Status Disposition Source [facility]) OUT[facility] [id number] DON DONISophia 08/03 Released w/o Limitations [facility] Fitz avina([facility]) [facility] Acosta miranda([facility]) OUTPATIENT [id number] KHLOE ANAYA 08/07 Released w/o Limitations [facility] Fitz avina([facility] D Optomet [facility]) [facility] miranda[facility] OUTPATIENT [id number] FIRST VISIT FOR IMMUNIZ ATISIAH WEST 08/07 Released w/o Limitations [facility] Fitz avina(MCR D [employer] ) [facility] miranda[facility] OUTPATIENT [id number] SECOND VISIT FOR IMMUNIZ MIGUELINA SORIANO 09/05 Released w/o Limitations [facility] Fitz avina(MCR D [employer] ) Procedures Combined list of: 1) Procedures from Department of Veterans Affairs facilities going back up to thelast 18 months, not all VA non-surgical procedures are included; 2) All procedures from the Department of Defense facilities. Procedure Procedure Type Code Date Perfomer Comments Sourc e No data available for this section Ambulato ry Pharmacy Patient education, not otherwise cla ified, non-physician provider, group, per se ion DIONNE OCHOA Threshold Audiogram (Pure Tone) Automated Threshold Audiogram (Pure Tone) Automated 0208T DIONNE OCHOA [employer] Fitting Monofocals (Not For Aphakia) [employer] Fitting Monofocals (Not For Aphakia) [id number] [facility] Ophthalmological New Patient Start Intermediate Level Care Ophthalmological New Patient Start Intermediate Level Care [id number] [facility] Vaccines Viral Measles, Mumps and Rubella, Live Vaccines Viral Measles, Mumps and Rubella, Live 32435 HUEY HARRISON MMR; Series #: 1; 0.5 mL; SC; Left Arm; Mfg: [employer]; Lot: [id number]; VIS given (Artem: 05/05/2021). [facility] Vaccines Viral Polio, Inactivated (Salk) Vaccines Viral Polio, Inactivated (Salk) 68917 HUEY HARRISON IPV; Series #: 1; 0.5 mL; IM; Right Arm; Mfg: Moderna [employer] Inc.; Lot: [id number]; VIS given (Artem: 05/05/21; 12/30/19 - Multiple). [facility] Vaccines Viral Varicella (Active) Vaccines Viral Varicella (Active) 16110 HUEY HARRISON Varicella; Series #: 1; 0.5 mL; SC; Right Arm; Mfg: Merck; Lot: [id number]; VIS given (Artem: 05/05/2021). [facility] Skin Test Anergy Tuberculin Intradermal Skin Test Anergy Tuberculin Intradermal 03338 HUEY HARRISON IPPD; Series #: 1; 0.1 mL; ID; Left Arm; Mfg: Sanofi Pasteur; Lot: [id number]; VIS given. [facility] Meningococcal Polysacch Diphtheria Toxoid Conjugate Vaccine Meningococcal Polysacch Diphtheria Toxoid Conjugate Vaccine 31163 HUEY HARRISON Meningococcal MCV4P (Menactra); Series #: 1; 0.5 mL; IM; Right Arm; Mfg: Sanofi Pasteur; Lot: [id number]; VIS given (Artem: 05/05/2021). [facility] Tdap Vaccine Tdap Vaccine 57506 HUEY HARRISON Tdap; Series #: 1; 0.5 mL; IM; Left Arm; Mfg: [employer]; Lot: [id number]; VIS given (Artem: 05/05/2021). [facility] Vaccines Vaccines 01404 HUEY HARRISON Adenovirus Type 4 and 7; Series #: 1; 2 tablets; PO; Oral; Mfg: Unknown; Lot: [id number]; VIS given (Artem: 10/07/2019). [facility] Immunization Administration One Vaccine Immunization Administration One Vaccine [address] [facility] Immunization Administration Each Additional Vaccine Immunization Administration Each Additional Vaccine [address] [facility] Immunization Admin By Intranasal / Oral Route One Vaccine Immunization Admin By Intranasal / Oral Route One Vaccine [address] Supervised Injection Intramuscular Supervised Injection Intramuscular [address] [facility] Venipuncture Venipuncture [address] [facility] Vaccines Viral Measles, Mumps and Rubella, Live Vaccines Viral Measles, Mumps and Rubella, Live 78069 PHAM, ALESI A MMR; Series #: 2; 0.5 mL; SC; Left Arm; Mfg: Merck; Lot: [id number]; VIS given (Artem: 05/05/2021). [facility] Vaccines Viral Varicella (Active) Vaccines Viral Varicella (Active) 77459 PHAM, ALESI A Varicella; Series #: 2; 0.5 mL; SC; Right Arm; Mfg: Merck; Lot: [id number]; VIS given (Artem: 05/05/2021). [facility] Social History Combined list of available smoking, tobacco, and other social history from Department of Defense and Veterans Affairs facilities. Social History Type Response Date Comment [facility] Sex Representation Male (finding) 12/07/2021 Un known Organization Tobacco Never-cigarette user Cigarette use:. Never-other tobacco user (not cigarettes) Other Tobacco use:. Ambulatory Pharmacy Sexual Orientation Ambula tory Pharmacy Gender identity Ambulator y Pharmacy This section is an empty social history section. DoD Assessment and Plan Combined list of future care activities from Department of Defense and Veterans Affairs facilities (e.g., assessment and plan notes, appointments, orders, and referrals). Additional future care activities may be listed in the Plan of Care section. 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 ?Use electric clippers [...] refill(s), Maintenance, 1 appl(s) Topical Daily, Pharmacy: [facility] [Not filled] ? [facility] [place] Functional Status Combined list of recent functional and cognitive assessments recorded at Department of Defense and Veterans Affairs (VA).VA Functional Donley Measurement (FIM) Scale: 1 = Total Assistance (Subject = 0% +), 2 = Maximal Assistance (Subject = 25% +), 3 = Moderate Assistance (Subject = 50% +), 4 = Minimal Assistance (Subject = 75% +), 5 = Supervision, 6 = Modified Donley (Device), 7 = Complete Donley (Timely, Safely). Assessment Date/Time Source Assessment Type Assessment Skill Assessment Score Assessment Details No data available for this section
== END 2025-02-03 11:39 | disposition home or self-care (01) ==
LOC: HO.HOS 10:58
DX: S68.110A Complete traumatic metacarpophalangeal amputation of right index finger, initial encounter (principal)
CPT/HCPCS: 99024

== ENCOUNTER → 2025-02-03 10:58 | Outpatient (BNVA) | payer OTHER, SELFPAY | DX: Z47.81 Encounter for orthopedic aftercare following surgical amputation (principal); Z89.021 Acquired absence of right finger(s) | CPT/HCPCS: 99212 ==